=== PATIENT | female | born 1930 | race Two or more races ===

== ENCOUNTER 2017-10-15 09:57 | Inpatient (IN) | payer MEDICARE, MEDICAID ==
[~2017-10-15] VITALS: Ht 152.4 cm; Wt 83.0 kg
[~2017-10-15 09:57] MED LIST: ERGOCALCIFEROL (VITAMIN D 2) 50,000 UNIT CAPSULE PO SCH
--- NOTE | 2017-10-15 10:00 | NUR ---
87 yo female bb ra from home. per ems, dialysis transport came to roller picker patient, noticed patient was slow to respond, called 911 for eval. patient is alert and oriented x 2, can not recall date. patient was ds to er bed by ems, patient was gowned, placed on monitor car operator. skin warm and dry, resp even and unlabored. per family, patient is usually energetic, but today doesnt seem to have energy. awaiting orders from provider, will continue to monitor
--- NOTE | 2017-10-15 10:05 | NUR ---
20g right ac iv started, blood sample onbtained and sent to lab
--- NOTE | 2017-10-15 10:30 | NUR ---
asked for bed
[2017-10-15 10:31] LABS: INR 1.12 (0.85-1.15)
[2017-10-15 10:33] LABS: BASOPHILS % (AUTO) 0.3 % (0.0-2.0); EOSINOPHILS % (AUTO) 0.1 % (0.0-6.0); HEMATOCRIT 29 % (33-45); HEMOGLOBIN 9.7 g/dL (11.5-14.8); LYMPHOCYTES # (AUTO) 0.5 /CMM (0.8-4.8); LYMPHOCYTES % (AUTO) 6.5 % (20.0-44.0); MEAN CORPUSCULAR HGB CONC 33 g/dl (31.0-36.0); MEAN CORPUSCULAR VOLUME 97 fL (82-100); MONOCYTES # (AUTO) 0.4 /CMM (0.1-1.30); MONOCYTES % (AUTO) 5.6 % (2.0-12.0); NEUTROPHILS # (AUTO) 6.3 /CMM (1.8-8.9); NEUTROPHILS % (AUTO) 87.5 % (43.0-81.0); PLATELET COUNT (AUTO) 278 /CMM (150-450); RDW COEFFICIENT OF VARIATION 14.2 (11.5-15.0); RED BLOOD CELL COUNT(AUTO) 3.01 MIL/uL (4.0-5.2); WHITE BLOOD COUNT (AUTO) 7.2 K/uL (4.3-11.0)
[2017-10-15 10:36] LABS: TROPONIN I 0.027 ng/mL (0.00-0.056)
[2017-10-15] MEDS ORDERED: ERGO500014 PO (10:41)
[2017-10-15] MEDS ORDERED: ROSU10TA PO (10:41)
[2017-10-15] MEDS ORDERED: FOLI1TAB16 PO (10:41)
[2017-10-15] MEDS ORDERED: ASCO500T9 PO (10:41)
[2017-10-15] MEDS ORDERED: REPA2TAB9 PO (10:41)
[2017-10-15] MEDS ORDERED: LINA5TAB PO (10:41)
[2017-10-15] MEDS ORDERED: APIX2.5T PO (10:41)
[2017-10-15] MEDS ORDERED: PANT20TA2 PO (10:41)
[2017-10-15 10:44] LABS: CALCIUM, SERUM 8.5 mg/dL (8.5-10.1); CARBON DIOXIDE 29 mmol/L (21-32); CHLORIDE 97 mmol/L (98-107); CREATININE 6.4 mg/dL (0.6-1.3); GLUCOSE 214 mg/dL (74-106); POTASSIUM 3.8 mmol/L (3.5-5.1); SODIUM SERUM 135 mmol/L (136-145); UREA NITROGEN, BLOOD 36 mg/dL (7-18)
[2017-10-15 10:49] LABS: ALANINE AMINOTRANSFERASE 13 U/L (12-78); ALBUMIN 2.8 g/dL (3.4-5.0); ALKALINE PHOSPHATASE 97 U/L (46-116); ASPARTATE AMINOTRANSFERASE 21 U/L (15-37); BILIRUBIN,DIRECT 0.2 mg/dL (0.0-0.2); BILIRUBIN,TOTAL 0.4 mg/dL (0.2-1.0); TOTAL PROTEIN, SERUM 7.9 g/dL (6.4-8.2)
--- NOTE | 2017-10-15 11:37 | NUR ---
lazaro rn took report for guanako
--- NOTE | 2017-10-15 11:50 | NUR ---
NUCLEAR PHYSICIST PATIENT RECEIVED FROM E.R. DEPARTMENT ALERT AND ORIENTED X2, GUYANESE SPEAKING, DAUGHTER AT BEDSIDE, PATIENT IS IN NO DISTRESS, DENIES PAIN OR DISCOMFORT AT THIS TIME, PATIENT IS BEING ADMITTED WITH DX OF SYNCOPE. PATIENT PLACED ON TELE MONITOR WHICH SHOWS A.FIB. NEEDS ATTENDED AND ANTICIPATED, CALL LIGHT WITHIN REACH, WILL CONTINUE TO MONITOR.
--- NOTE | 2017-10-15 11:52 | NUR ---
transported pt to tele bed without incident
[2017-10-15 12:00] VITALS: BP 92/48
[2017-10-15] MEDS ORDERED: HEPARIN SODIUM, PORCINE 5000 UNITS/1 ML VIAL SQ SCH (12:00)
[2017-10-15] MEDS ORDERED: MAG HYDROX/AL HYDROX/SIMETH 30 ML UDC PO PRN (12:00)
[2017-10-15] MEDS ORDERED: HYDROCODONE/APAP 5/325MG 1 EACH TABLET PO PRN (12:00)
[2017-10-15] MEDS ORDERED: ACETAMINOPHEN 650 MG/SUPP.RECT RC PRN (12:00)
[2017-10-15] MEDS ORDERED: ZOLPIDEM TARTRATE 5 MG TABLET PO PRN (12:00)
[2017-10-15] MEDS ORDERED: MAGNESIUM HYDROXIDE 30 ML UDC PO PRN (12:00)
[2017-10-15] MEDS ORDERED: ONDANSETRON HCL/PF 4 MG/2 ML VIAL IVP PRN (12:00)
[2017-10-15] MEDS: PANTOPRAZOLE 40 MG VIAL IV SCH (13:00)
[2017-10-15 16:12] VITALS: BP 113/77
[2017-10-15] MEDS ORDERED: DOCU100C36 PO (16:47)
[2017-10-15] MEDS ORDERED: BISA-79 PR (16:47)
[2017-10-15] MEDS ORDERED: APIXABAN 2.5 MG TABLET PO SCH (17:00)
[2017-10-15] MEDS ORDERED: DEXTROSE 50%-WATER 50 ML DISP.SYRIN IV PRN (17:00)
[2017-10-15] MEDS: BLOOD SUGAR DIAGNOSTIC 1 EACH STRIP VI SCH ×2 (18:02→21:35)
[2017-10-15] MEDS: INSULIN REGULAR, HUMAN 100 UNIT/ML 3 ML VIAL SQ PRN (18:06)
--- NOTE | 2017-10-15 18:27 | NUR ---
RN NOTES PATIENT SLEEPING BUT AROUSABLE, PATIENT IS UNSAFE TO EAT DUE TO BEING TOO SLEEPY. WILL HOLD INSULIN. WILL RE-OFFER FOOD IN 30 MINUTES. PATIENT IS IN NO S/SX OF DISTRESS. NEEDS ATTENDED AND MET, CALL LIGHT WITHIN REACH, WILL CONTINUE TO MONITOR.
--- NOTE | 2017-10-15 18:51 | NUR ---
RN NOTES PATIENT A/OX2, APPEARS TO BE SLEEPY BUT EASILY AROUSABLE, PATIENT DENIES PAIN OR DISCOMFORT, PIV ON RAC PATENT AND FLUSHES WELL, NEEDS ATTENDED AND MET, CALL LIGHT WITHIN REACH, SAFETY MEASURES IN PLACED, WILL ENDORSE TO FLOOR CASHIER FOR BURT.
--- NOTE | 2017-10-15 19:50 | NUR ---
FLIGHT INSPECTOR NOTE: PATIENT RESTING IN BED, NO ACUTE DISTRESS NOTED. BREATHING EVEN AND UNLABORED, NO SOB NOTED. IV TO RAC IN PLACE. HD SITE TO RIGHT CHEST WALL IN PLACE, NO BLEEDING NOTED. NO S/S OF HYPER/HYPOGLYCEMIA NOTED. BED LOCKED AND IN LOWEST POSITION, CALL LIGHT IN REACH. WILL CONTINUE TO MONITOR.
[2017-10-15 20:00] VITALS: BP 94/43
[2017-10-15] MEDS ORDERED: APIXABAN 2.5 MG TABLET PO ONE (20:00)
[2017-10-15] MEDS: ATORVASTATIN 10 MG TABLET PO SCH (21:35)
--- NOTE | 2017-10-15 21:45 | NUR ---
HAND HIDE STRETCHER NOTE: PATIENT BLOOD SUGAR LEVEL 114MG/DL, NO INSULIN NEEDED PER SLIDING SCALE. NO S/S OF HYPOGLYCEMIA NOTED. WILL CONTINUE TO MONITOR.
[2017-10-16] VITALS: BP 93/52
[2017-10-16] MEDS: GUAIFENESIN/D-METHORPHAN HB 5 ML UDC PO PRN ×3 (00:05→21:16)
--- NOTE | 2017-10-16 00:15 | NUR ---
PAIRER NOTE: PATIENT COUGHING WITH CLEAR THIN SPUTUM AND REQUESTING FOR COUGH MEDICATIONS. SPOKE TO SCHEDULING SPECIALIST DIVINA WHITNEY, AKANKSHA WITH NEW ORDERS FOR ROBITUSSIN DM 5ML ORAL EVERY 4HR NEEDED. ORDER NOTED AND CARRIED OUT. WILL CONTINUE TO MONITOR.
--- NOTE | 2017-10-16 01:00 | NUR ---
HAIR BALER NOTE: PATIENT STATES THAT SHE HAD OLD AV SITE TO RFA. NEW IV STARTED TO LEFT FOREARM #22, IV TO RAC REMOVED, COVERED WITH GAUZE, PRESSURE APPLIED, AND SECURED WITH TAPE. WILL CONTINUE TO MONITOR.
[2017-10-16 04:00] VITALS: BP 110/59
[2017-10-16 06:32] LABS: BASOPHILS % (AUTO) 0.6 % (0.0-2.0); EOSINOPHILS % (AUTO) 0.7 % (0.0-6.0); HEMATOCRIT 28 % (33-45); HEMOGLOBIN 9.2 g/dL (11.5-14.8); LYMPHOCYTES # (AUTO) 0.7 /CMM (0.8-4.8); LYMPHOCYTES % (AUTO) 9.9 % (20.0-44.0); MEAN CORPUSCULAR HGB CONC 33 g/dl (31.0-36.0); MEAN CORPUSCULAR VOLUME 99 fL (82-100); MONOCYTES # (AUTO) 0.6 /CMM (0.1-1.30); MONOCYTES % (AUTO) 8.3 % (2.0-12.0); NEUTROPHILS # (AUTO) 5.5 /CMM (1.8-8.9); NEUTROPHILS % (AUTO) 80.5 % (43.0-81.0); PLATELET COUNT (AUTO) 228 /CMM (150-450); RED BLOOD CELL COUNT(AUTO) 2.83 MIL/uL (4.0-5.2); WHITE BLOOD COUNT (AUTO) 6.9 K/uL (4.3-11.0)
--- NOTE | 2017-10-16 06:45 | NUR ---
ANTIQUE DEALER NOTE: PATIENT RESTING IN BED, NO ACUTE DISTRESS NOTED. BREATHING EVEN AND UNLABORED, NO SOB NOTED. IV TO LFA IN PLACE. HD SITE TO RIGHT CHEST WALL IN PLACE, NO BLEEDING NOTED. BLOOD SUGAR LEVEL 116MG/DL, NO S/S OF HYPER/HYPOGLYCEMIA NOTED. BED LOCKED AND IN LOWEST POSITION, CALL LIGHT IN REACH. WILL ENDORSE TO DAY NURSE TO CONTINUE WITH PLAN OF CARE.
[2017-10-16 06:47] LABS: ALANINE AMINOTRANSFERASE 15 U/L (12-78); ALBUMIN 2.6 g/dL (3.4-5.0); ALKALINE PHOSPHATASE 83 U/L (46-116); ASPARTATE AMINOTRANSFERASE 14 U/L (15-37); BILIRUBIN,TOTAL 0.4 mg/dL (0.2-1.0); CALCIUM, SERUM 8.2 mg/dL (8.5-10.1); CARBON DIOXIDE 29 mmol/L (21-32); CHLORIDE 98 mmol/L (98-107); GLUCOSE 114 mg/dL (74-106); MAGNESIUM 2.2 mg/dL (1.8-2.4); PHOSPHORUS 4.7 mg/dL (2.5-4.9); SODIUM SERUM 138 mmol/L (136-145); TOTAL PROTEIN, SERUM 7.5 g/dL (6.4-8.2); UREA NITROGEN, BLOOD 44 mg/dL (7-18)
[2017-10-16 06:51] LABS: CREATININE 7.5 mg/dL (0.6-1.3)
[2017-10-16 06:54] LABS: CHOLESTEROL 121 mg/dL (<200); HDL CHOLESTEROL 54 mg/dL (40-60); LDL 53 mg/dL (0-99); THYROID STIMULATING HORMONE 0.594 uIU/mL (0.358-3.74); TRIGLYCERIDES 93 mg/dL (30-150)
[2017-10-16] MEDS: BLOOD SUGAR DIAGNOSTIC 1 EACH STRIP VI SCH ×4 (06:57→21:05)
[2017-10-16 07:13] LABS: IRON, SERUM 39 ug/dl (50-175); TOTAL IRON BINDING CAPACITY 143 ug/dl (250-450)
--- NOTE | 2017-10-16 07:37 | NUR ---
TELE/RN OPENING NOTE PATIENT IN BED IN STABLE CONDITION. A/O X 3, TONGAN SPEAKING. NO SIGNS OF ACUTE DISTRESS. NO COMPLAIN OF PAIN OR DISCOMFORT. ON TELE MONITOR WITH CONTROLLED A-FIB RATE OF 98. ALL NEEDS ATTENDED TO. CALL LIGHT WITHIN REACH. WILL CONTINUE TO MONITOR TO ENSURE SAFETY.
[2017-10-16 08:00] VITALS: BP 100/52
[2017-10-16] MEDS: FOLIC ACID 1 MG TABLET PO SCH (08:35)
[2017-10-16] MEDS: PANTOPRAZOLE 40 MG VIAL IV SCH (08:35)
[2017-10-16] MEDS: ASCORBIC ACID 500 MG TABLET PO SCH (08:36)
[2017-10-16] MEDS: ERGOCALCIFEROL (VITAMIN D 2) 50,000 UNIT CAPSULE PO SCH (08:37)
[2017-10-16] MEDS ORDERED: Medication Not On Formulary EA (Rosuvastatin Calcium (Crestor) 10 MG) PO SCH (09:00)
--- NOTE | 2017-10-16 09:19 | NUR ---
MS/RN ELIQUIS DOSE 10/15/181699 HELD SPOKE WITH PHARMACIST ERAN AND MADE AWARE ELIQUIS DUE TODAY AT 9AM BUT UNABLE TO SCAN BECAUSE eMAR STILL SHOWS ELIQUIS ORDER FROM 10/15/16 170. PER ERAN PUT NON ADMIN FOR 10/15/161699 ELIQUIS AND ADMINISTERED TODAY'S 9AM ELIQUIS DOSE.
[2017-10-16] MEDS: ACETAMINOPHEN 325 MG TABLET PO PRN (10:56)
[2017-10-16] MEDS: APIXABAN 2.5 MG TABLET PO SCH ×2 (10:56→16:28)
[2017-10-16] MEDS: INSULIN REGULAR, HUMAN 100 UNIT/ML 3 ML VIAL SQ PRN (11:57)
--- NOTE | 2017-10-16 14:25 | NUR ---
MS/RN ORTHOSTATIC BP LYING 105/51, 95 SITTING 110/53, 97 STANDING 112/48, 110
--- NOTE | 2017-10-16 15:29 | NUR ---
MS/RN SPOKE WITH DR GUTHRIE SPOKE WITH JERRI AND MADE AWARE PATIENT VERBALIZING THAT SHE DIDN'T HAVE B.M. FOR PAST 5 DAYS AND REQUESTING FOR ENEMA. PER DR GUTHRIE GIVE MOM 30ML PO X 1 NOW AND BISACODYL 10MG PO X 1 NOW, IF NOT WORKING THEN GIVE FLEET ENEMA RC X 1. PATIENT MADE AWARE.
[2017-10-16] MEDS ORDERED: NA PHOS,M-B/NA PHOS,DI-BA 1 EA ENEMA RC PRN (15:30)
[2017-10-16 16:00] VITALS: BP 117/65
[2017-10-16] MEDS ORDERED: MAGNESIUM HYDROXIDE 30 ML UDC PO ONE (16:00)
[2017-10-16] MEDS ORDERED: BISACODYL (5 MG) 5 MG TABLET.DR PO ONE (16:00)
--- NOTE | 2017-10-16 18:24 | NUR ---
MS/RN CLOSING NOTE PATIENT IN BED IN STABLE CONDITION. A/O X 3, BANGLADESHI SPEAKING. NO SIGNS OF ACUTE DISTRESS. NO COMPLAIN OF PAIN OR DISCOMFORT. ALL NEEDS ATTENDED TO. CALL LIGHT WITHIN REACH. WILL ENDORSE TO NEXT SHIFT FOR CONTINUITY OF CARE.
--- NOTE | 2017-10-16 19:07 | NUR ---
RN NOTES RECEIVE PT IN BED A/O X3 , NO S/S OF DISTRESS, STABLE, SAFETY MEASURES IN PLACE, CALL LIGHT WITHIN REACH, WILL CONTINUE TO MONITOR
[2017-10-16 20:00] VITALS: BP 113/58
[2017-10-16] MEDS: ATORVASTATIN 10 MG TABLET PO SCH (21:08)
[2017-10-16] MEDS: *INSULIN REGULAR(HUMULIN R)HUM 100 UNIT/ML VIAL SQ PRN (21:08)
--- NOTE | 2017-10-16 22:00 | NUR ---
MS RN NOTES PATIENT REFUSED 3 UNITS OF REGULAR INSULIN BS 166 MG/DL NON ADMIN PER PT SHE DOESNT TAKE INSULIN PT A/O X 4 DESPITE EXPLAINING RISKS AND BENEFITS OFFERED 3 TIMES STILL REFUSED PT A/OX4. HOSPITALIST MADE AWARE.
[2017-10-17] MEDS: GUAIFENESIN/D-METHORPHAN HB 5 ML UDC PO PRN ×3 (02:22→21:11)
--- NOTE | 2017-10-17 02:44 | NUR ---
MS RN NOTES PATIENT NOTED NON PRODUCTIVE COUGH SPOKE TO SUPERVISOR LINE DEPARTMENT DIVINA PT NOTED WITH THIN SPUTUM CANNOT EXPECTORATE. PER DIVINA VALE SHE WILL PUT ORDERS. WILL MTR. SPO2 97%
[2017-10-17] MEDS ORDERED: GUAIFENESIN LA 600 MG TABLET.SA PO PRN (03:00)
[2017-10-17] MEDS ORDERED: ACETYLCYSTEINE 10% SOLN 400 MG/4 ML VIAL NEB PRN (03:00)
[2017-10-17] MEDS: INSULIN REGULAR, HUMAN 100 UNIT/ML 3 ML VIAL SQ PRN ×2 (06:00→12:34)
[2017-10-17] MEDS: BLOOD SUGAR DIAGNOSTIC 1 EACH STRIP VI SCH ×4 (06:00→21:16)
--- NOTE | 2017-10-17 06:47 | NUR ---
MS RN NOTES PT ASLEEP COMFORTABLY IN BED AND EASILY AWAKEN SEMI FOWLERS POSITION ON 2LPM VIA NC O2 SAT 95% NOT IN RESPIRATORY DISTRESS. STABLE CONDITION. NO ACUTE CHANGES THROUGHOUT THE SHIFT. KEPT CLEAN AND DRY AND COMFORTABLE. NURSING CARE RENDERED. NEEDS ATTENDED AND ANTICIPATED. NO C/O OF PAIN. GOOD SKIN CARE PROVIDED. REPOSITION EVERY 2 HOURS FOR COMFORT. ON LOW BED TO ENSURE SAFETY, CALL LIGHT WITHIN REACH, WILL ENDORSE TO THE NEXT SHIFT CONTINUE PLAN OF CARE
--- NOTE | 2017-10-17 06:49 | NUR ---
MS RN NOTES PATIENT REFUSED 3 UNITS OF REGULAR INSULIN BS 175 MG/DL NON ADMIN PER PT SHE DOESNT TAKE INSULIN PT A/O X 4 DESPITE EXPLAINING RISKS AND BENEFITS OFFERED 3 TIMES STILL REFUSED. HOSPITALIST MADE AWARE.
--- NOTE | 2017-10-17 07:29 | NUR ---
MS/RN OPENING NOTE PATIENT IN BED IN STABLE CONDITION. A/O X 3, UGANDAN SPEAKING. NO SIGNS OF ACUTE DISTRESS. NO COMPLAIN OF PAIN OR DISCOMFORT. ALL NEEDS ATTENDED TO. CALL LIGHT WITHIN REACH. WILL CONTINUE TO MONITOR TO ENSURE SAFETY.
[2017-10-17] MEDS ORDERED: ACETYLCYSTEINE 20% SOLN 800 MG/4 ML VIAL ONE (07:36)
[2017-10-17 08:06] VITALS: BP 110/58
[2017-10-17 08:10] LABS: BASOPHILS % (AUTO) 0.2 % (0.0-2.0); HEMATOCRIT 29 % (33-45); HEMOGLOBIN 9.5 g/dL (11.5-14.8); LYMPHOCYTES # (AUTO) 0.5 /CMM (0.8-4.8); LYMPHOCYTES % (AUTO) 5.7 % (20.0-44.0); MEAN CORPUSCULAR HGB CONC 33 g/dl (31.0-36.0); MEAN CORPUSCULAR VOLUME 99 fL (82-100); MONOCYTES # (AUTO) 0.7 /CMM (0.1-1.30); MONOCYTES % (AUTO) 7.5 % (2.0-12.0); NEUTROPHILS # (AUTO) 7.6 /CMM (1.8-8.9); NEUTROPHILS % (AUTO) 86.6 % (43.0-81.0); PLATELET COUNT (AUTO) 239 /CMM (150-450); RDW COEFFICIENT OF VARIATION 15.6 (11.5-15.0); RED BLOOD CELL COUNT(AUTO) 2.94 MIL/uL (4.0-5.2); WHITE BLOOD COUNT (AUTO) 8.8 K/uL (4.3-11.0)
[2017-10-17] MEDS: ASCORBIC ACID 500 MG TABLET PO SCH (08:15)
[2017-10-17] MEDS: APIXABAN 2.5 MG TABLET PO SCH ×2 (08:15→16:50)
[2017-10-17] MEDS: FOLIC ACID 1 MG TABLET PO SCH (08:15)
[2017-10-17 08:33] LABS: CALCIUM, SERUM 7.9 mg/dL (8.5-10.1); CARBON DIOXIDE 32 mmol/L (21-32); CHLORIDE 98 mmol/L (98-107); CREATININE 5.8 mg/dL (0.6-1.3); GLUCOSE 147 mg/dL (74-106); MAGNESIUM 2.2 mg/dL (1.8-2.4); PHOSPHORUS 5.4 mg/dL (2.5-4.9); POTASSIUM 4.2 mmol/L (3.5-5.1); SODIUM SERUM 136 mmol/L (136-145); UREA NITROGEN, BLOOD 32 mg/dL (7-18)
--- NOTE | 2017-10-17 12:34 | NUR ---
MS/RN REGULAR INSULIN REFUSE NOON BS 164, REFUSE 3 UNITS. OFFERED X 3 WITH RISKS BENEFITS EXPLAINED STILL REFUSE.
--- NOTE | 2017-10-17 14:39 | NUR ---
MS/RN REPORT REPORT GIVEN TO CHRYSTAL LLANOS.
--- NOTE | 2017-10-17 14:50 | NUR ---
RN NOTES REPORT TAKEN FROM RN. PATIENT GETTING HEMODIALYSIS AT THIS TIME. PATIENT PASHTO SPEAKER, A/O X3. PATIENT HAS NO ACUTE RESPIRATORY DISTRESS ON O2-2LNC. V/S STABLE. CALL LIGHT WITHIN TO REACH. IV ACCESS ON LEFT FOREARM. CONTINUED MONITORING.
--- NOTE | 2017-10-17 15:45 | NUR ---
RN NOTES HEMODIALYSIS FINISHED AT THIS TIME GET REPORT HD NURSE BILL. OUTPUT WAS 2500 ML, V/S TAKEN AND BP- 107/57, P-92, PATIENT ON O2 2LNC. PATIENT COUGHING, ASSIST TURN AND REPOSTION Q 2 HR, CALL LIGHT WITHIN TO REACH. NEEDS ATTENDED AND ANTICIPATED. CONTINUED MONITORING. DAUGHTER NEXT TO THEE BED.
[2017-10-17 16:00] VITALS: BP 101/50
--- NOTE | 2017-10-17 16:50 | NUR ---
RN NOTES BS-128MG/DL NO COVERAGE GIVEN, V/S TAKEN BP -98/57, P-100, SCHEDULED MEDICATION ADMINISTERED, ALSO ADMINISTERED ROBITUSSIN SYRUP PER PATIENT REQUEST FOR COUGH, HOB KEEP ELEVATED, CALL LIGHT WITHIN TO REACH, CONTINUED MONITORING.
--- NOTE | 2017-10-17 18:40 | NUR ---
RN NOTES PATIENT STABLE AT THIS TIME, MEDICATION WERE ADMINISTERED FOR COUGH IS EFFECTIVE. NO ACUTE RESPIRATORY DISTRESS. PATIENT ON O2-2LNC, ASSIST TURN AND REPOSTION Q 2 HR. CALL LIGHT WITHIN TO REACH. SHANTELLE UED MONITORING. ENDORSED ONCOMING NURSE FOR BURT.
--- NOTE | 2017-10-17 19:30 | NUR ---
MS RN NOTES RECEIVED ON BED A/O X2-3,KYRGYZ SPEAKING.NOTED HAVING SOB,ON UPRIGHT POSITION,MULTIPLE BRUISING NOTED ON BOTH UPPER AND LOWER EXTREMITIES.SALINE LOCK LFA INTACT AND PATENT.WITH RIGHT CHEST WALL HD CATH,DRESSING INTACT AND DRY.WITH RA OLD AV SHUNT.APPEARS RESTLESS,TRYING TO GET OUT OF BED.REPOSITION PER PROTOCOL.CALL LIGHT IN REACH,NEEDS ANTICIPATED.
[2017-10-17 20:00] VITALS: BP 132/76
[2017-10-17] MEDS: ATORVASTATIN 10 MG TABLET PO SCH (21:10)
--- NOTE | 2017-10-17 21:10 | NUR ---
MS RN NOTES RESTLESS,GIVEN AMBIEN 5MG PO TO SLEEP.ONE TO ONE STARTED,PATIENT TRIED TO GET OUT OF BED,ALARM ON.
--- NOTE | 2017-10-17 21:11 | NUR ---
MS RN NOTES C/O COUGH,ROBITUSSIB DM 5ML PO GIVEN ORDERED FOR COUGH.
--- NOTE | 2017-10-17 21:19 | NUR ---
ASSESSED PT. PT SPO2 98% HR 82. PT CLAIMS NO SOB. RN NOTIFIED. WILL CONTINUE TO MONITOR.
[2017-10-17] MEDS: *INSULIN REGULAR(HUMULIN R)HUM 100 UNIT/ML VIAL SQ PRN (21:26)
--- NOTE | 2017-10-17 22:00 | NUR ---
MS RN NOTES ACCU-CHECK BLOOD SUGAR CHECK 146,COVERED WITH HUMULIN R 2 UNITS PER SLIDING SCALE.
--- NOTE | 2017-10-17 22:09 | NUR ---
MS RN NOTES SLEEPING AT THIS TIME,KEPT WARM AND COMFORTABLE.
[2017-10-18] VITALS (82 sets, daily range): BP systolic 69–148; BP diastolic 25–76
--- NOTE | 2017-10-18 01:30 | NUR ---
MS RN NOTES REPOSITION TO LEFT SIDE WITH HOB ELEVATED.
--- NOTE | 2017-10-18 02:15 | NUR ---
MS RN NOTES NOTED APPEARS LETHARGIC,BUT AROUSABLE TO VERBAL STIMULI,OPEN EYES.PATIENT WAS MEDICATED EARLIER WITH AMBIEN 5MG PO.PATIENT SO RESTLESS AND TRYING TO GET OUT OF BED.
--- NOTE | 2017-10-18 02:40 | NUR ---
MS RN NOTES DIVINA ZIGZAG STITCHER ON FLOOR AND SHE WAS ABLE TO SEE AND ASSESS PATIENT.WITH ORDER TO DO STAT ABG AND CHEST X-RAY NOTED AND CARRIED OUT.
--- NOTE | 2017-10-18 02:45 | NUR ---
MS RN NOTES BLOOD PRESSURE OF 141/64,HEART RATE-119,RR-22 O2 SAT 90% ON 10L/FACE MASK.
[2017-10-18 02:52] LABS: ABG BASE EXCESS -0.9 mmol/L; ABG PCO2 100.2 mmHg (35.0-45.0); ABG PH 7.104 (7.350-7.450); ABG PO2 73.6 mmHg (75.0-100.0); AaDO2 170.2 mmHg; COHb 0.6 % (0.5-1.5); MetHb 0.3 % (0.0-1.5); O2Hb 91.2 % (94.0-97.0); SITE, ABG Left Radial; VENT MODE, BG simple mask 10L 50%
[2017-10-18] MEDS ORDERED: FUROSEMIDE 100 MG/10 ML VIAL IV ONE (03:00)
[2017-10-18] MEDS ORDERED: NTG 50 MG/D5W250 ML BOTTL 250 ML IV PRN (03:00)
[2017-10-18] MEDS ORDERED: MORPHINE SULFATE INJ 2 MG/ML DISP.SYRIN IV PRN (03:00)
--- NOTE | 2017-10-18 03:05 | NUR ---
MS RN NOTES CHEST X-RAY WAS DONE THIS TIME
--- NOTE | 2017-10-18 03:10 | NUR ---
MS RN NOTES TRANSFERRED TO ICU FOR FURTHER CARE AND MANAGEMENT ORDERED BY AKANKSHA MURCIA
--- NOTE | 2017-10-18 03:15 | NUR ---
MS RN NOTES PLACE CALL TO RICHARD COELHO, DAUGHTER,LEAVE MESSAGE ON ANSWERING MACHINE
--- NOTE | 2017-10-18 03:25 | NUR ---
PLACED PT ON BIPAP ON MD NOTED SETTINGS. BIPAP PLUGGED INTO RED OUTLET. WILL CONT TO MONITOR PT FOR REST OF SHIFT.
[2017-10-18] MEDS ORDERED: NTG 50 MG/D5W250 ML BOTTL 250 ML IV ONE (03:29)
[2017-10-18] MEDS ORDERED: SUCCINYLCHOLINE CHLORIDE 20 MG/ML VIAL IV ONE (04:30)
[2017-10-18] MEDS ORDERED: ETOMIDATE 2 MG/ML VIAL IV ONE (04:30)
[2017-10-18] MEDS ORDERED: LORAZEPAM INJ 2 MG/ML VIAL IV ONE (04:30)
--- NOTE | 2017-10-18 04:30 | NUR ---
PT INTUBATED BY ER MD TODD WITH 7.5 ETT 22 @ LIP. 02SAT 100%, WILL TAKE PT FOR CT CHEST
--- NOTE | 2017-10-18 04:32 | NUR ---
CALLED TO BEDSIDE PT ON BIPAP. INTUBATED PT PER PHYSICIAN ORDERS. ET TUBE 7.5 22 @ LIP. BILATERAL BREATH SOUNDS, DIMINISHED ON THE LEFT. POSITIVE COLOR CHANGE AND MIST IN THE TUBE. VENT SETTINGS 20, 400, 100%, +5. X-RAY OBSERVED ETT IN GOOD POSITION. SX LARGE AMOUNT YELLOW SECRETIONS. AMBU BAG AT BEDSIDE. VENT PLUGGED INTO RED OUTLET. ALARMS ARE ON AND AUDIBLE.
[2017-10-18] MEDS ORDERED: PROPOFOL 100 ML ONE (04:39)
[2017-10-18 04:54] LABS: ABG BASE EXCESS -2.5 mmol/L; ABG OXYGEN SATURATION 95.6 % (92.0-98.5); ABG PCO2 71.5 mmHg (35.0-45.0); ABG PO2 85.7 mmHg (75.0-100.0); AaDO2 555.8 mmHg; COHb 0.3 % (0.5-1.5); MetHb 0.1 % (0.0-1.5); O2Hb 95.2 % (94.0-97.0); SITE, ABG Left Radial; VENT MODE, BG AC20 400 100% +5
[2017-10-18] MEDS ORDERED: PROPOFOL 100 ML IV PRN (05:00)
[2017-10-18] MEDS ORDERED: LORAZEPAM INJ 2 MG/ML VIAL IV PRN (05:00)
[2017-10-18 05:17] LABS: HEMATOCRIT 33 % (33-45); HEMOGLOBIN 10.2 g/dL (11.5-14.8); LYMPHOCYTES # (AUTO) 0.5 /CMM (0.8-4.8); LYMPHOCYTES % (AUTO) 5.7 % (20.0-44.0); MEAN CORPUSCULAR HGB CONC 31 g/dl (31.0-36.0); MEAN CORPUSCULAR VOLUME 102 fL (82-100); MONOCYTES # (AUTO) 0.6 /CMM (0.1-1.30); MONOCYTES % (AUTO) 6.1 % (2.0-12.0); NEUTROPHILS # (AUTO) 8.2 /CMM (1.8-8.9); NEUTROPHILS % (AUTO) 88.2 % (43.0-81.0); PLATELET COUNT (AUTO) 241 /CMM (150-450); RED BLOOD CELL COUNT(AUTO) 3.26 MIL/uL (4.0-5.2); WHITE BLOOD COUNT (AUTO) 9.3 K/uL (4.3-11.0)
--- NOTE | 2017-10-18 05:32 | NUR ---
RETURNED FROM CT CHEST, AKANKSHA MANZANARES AWARE OF RESULTS
[2017-10-18 05:51] LABS: CALCIUM, SERUM 8.6 mg/dL (8.5-10.1); CARBON DIOXIDE 26 mmol/L (21-32); CHLORIDE 101 mmol/L (98-107); CREATININE 4.7 mg/dL (0.6-1.3); GLUCOSE 120 mg/dL (74-106); MAGNESIUM 2.4 mg/dL (1.8-2.4); PHOSPHORUS 5.3 mg/dL (2.5-4.9); POTASSIUM 4.4 mmol/L (3.5-5.1); SODIUM SERUM 141 mmol/L (136-145); UREA NITROGEN, BLOOD 24 mg/dL (7-18)
--- NOTE | 2017-10-18 05:54 | NUR ---
OGT INSERTED PER DIRECTOR OF PHYSIOTHERAPY SERVICES LEIGHTON ORDER, @ 65 CM AT THE LIP
[2017-10-18 06:41] LABS: ABG BASE EXCESS -0.8 mmol/L; ABG OXYGEN SATURATION 98.3 % (92.0-98.5); ABG PH 7.227 (7.350-7.450); COHb 0.3 % (0.5-1.5); MetHb 0.3 % (0.0-1.5); O2Hb 97.7 % (94.0-97.0); SITE, ABG Left Brachial
[2017-10-18] MEDS: BLOOD SUGAR DIAGNOSTIC 1 EACH STRIP VI SCH ×2 (08:13→12:26)
[2017-10-18] MEDS: FOLIC ACID 1 MG TABLET PO SCH (08:24)
[2017-10-18] MEDS: ASCORBIC ACID 500 MG TABLET PO SCH (08:24)
[2017-10-18] MEDS: APIXABAN 2.5 MG TABLET PO SCH ×2 (08:29→17:00)
--- NOTE | 2017-10-18 09:13 | NUR ---
WOUND CARE CONSULT: PT PRESENTS WITH BRUISES TO EXTREMITIES AND EDEMA TO LOWER EXTREMITIES. PT NOTED TO HAVE INTACT DEEP TISSUE INJURY TO SACRUM. FIRST STEP MATTRESS BEING PLACED BY NURSING STAFF. PT IS NOW INTUBATED. ALL SKIN PROTECTION MEASURES IN PLACE AND DISCUSSED WITH NURSING STAFF. IN AGREEMENT WITH PLAN OF CARE. Addendum: 10/18/17 at 0915 by LORENA VÁSQUEZ WNDNU Amended: Links added.
[2017-10-18] MEDS: IPRATROPIUM NEB FS 0.5 MG/2.5 ML AMPUL.NEB NEB SCH ×3 (10:45→20:29)
[2017-10-18] MEDS: ACETYLCYSTEINE 10% SOLN 400 MG/4 ML VIAL NEB SCH ×3 (10:45→23:30)
[2017-10-18] MEDS ORDERED: VANCOMYCIN 1 GM in IV D5W 250 ML IV ONE (10:45)
[2017-10-18] MEDS ORDERED: FEE PK DOSING 1 MIN EA MC ONE (10:50)
[2017-10-18] MEDS: PIPERACILLIN /TAZOBACTAM 2.25 G in IV D5W 100 ML IV SCH ×2 (11:15→20:15)
--- NOTE | 2017-10-18 11:24 | NUR ---
FARM CONSULTANT NOTE 0720: Received sedated patient. With ETT to vent, tolerated settings at this time byut on AC 24 400 100%. Afib 70's on the monitor. OGT clamped. LFA AND RFA PIVs intact. BODY PRESSER restraints on for safety. Diprivan @ 5mcg, turned off and will monitor. 0820: S/E by wound care consult, noted with sacral DTI, applied Mepilex. Placed on KCI mattress. 0930: S/E by Dr. Nelson, with order to change settings to Vt 450 60% and will do ABG @ 1130. 0945: S/E by Dr. Brooks, Patient responds to pain but does not follow commands, kept off sedation. 1000: S/E by Silas ARCHEOLOGIST, HD onging, SBP 80's, obtained order for PICC insertion and Levo. Made CN and sup aware for order for PICC insertion. 1120: HD nurse stopped HD, patient did not tolerate HD well, SBP 70's even after 2 rounds of Albumin IV. Able to get 1500mL out per HD nurse. Started Vanco ATB.
[2017-10-18] MEDS: ALBUMIN 25% 25 GM in PREMIX 1 EA IV PRN (11:40)
[2017-10-18] MEDS: NOREPINEPHRINE 16 MG in IV D5W 500 ML IV PRN (11:48)
--- NOTE | 2017-10-18 11:52 | NUR ---
RAIL CAR REPAIR CARMAN NOTE Levo will start on PIV for now for low dose., followed up re: PICC line. Daughter said she will come to sign it and does not want to giove consent via phone.
[2017-10-18] MEDS ORDERED: DEXTROSE 50%-WATER 50 ML DISP.SYRIN IV PRN (12:30)
[2017-10-18 12:41] LABS: ABG BASE EXCESS 2.3 mmol/L; ABG OXYGEN SATURATION 96.7 % (92.0-98.5); ABG PCO2 36.1 mmHg (35.0-45.0); ABG PH 7.473 (7.350-7.450); ABG PO2 83.4 mmHg (75.0-100.0); AaDO2 304.7 mmHg; COHb 0.2 % (0.5-1.5); MetHb 0.3 % (0.0-1.5); O2Hb 96.2 % (94.0-97.0); SITE, ABG Right Radial; VT, ABG 450 mL
--- NOTE | 2017-10-18 15:33 | NUR ---
DESIGN DIRECTOR NOTE 1400: S/E by Dr. Bell, HD nurse in the unit made MD aware, only got 1500mL from HD and not fully done with the treatment. 1430: Dr. Dawson in the unit for LIJ TLC insertion, Ani daughter consented for Central line. 1500: Done with EEG.
--- NOTE | 2017-10-18 17:27 | NUR ---
RT END OF THE SHIFT REPORT, PT. 87 Y OLD FEMALE REMAIN ORALLY INTUBATED ETT# 7.5 @ 22 CM LIP LINE ON VENT WITH NOTED SETTINGS. ALARMS ARE SET AND AUDIBLE WITH AMBU BAG AT THE BEDSIDE. COMMUNITY SPORTS COORDINATOR CUFF PRESSURE CHECKED. VENT IS PLUGGED INTO RED OUTLET. B/S BILATERALLY RHONCHI SX MODERATE THICK YELLOW SECRETIONS. NO RESPIRATORY DISTRESS NOTED T/O SHIFT, TX'S GIVEN INLINE NO ADVERSE REACTION NOTED. HME CHANGED. PT. REMAIN STABLE. REPORT WILL PASS TO PM SHIFT. Addendum: 10/18/17 at 1729 by GAUTAM RAI RT Amended: Links added.
[2017-10-18] MEDS: BLOOD SUGAR DIAGNOSTIC 1 EACH STRIP IN SCH ×2 (17:31→23:39)
--- NOTE | 2017-10-18 18:24 | NUR ---
INDUSTRIAL TRAINER NOTE Noted patient with blood on pad when changed, reported to Silas HOLLOW HANDLE KNIFE ASSEMBLER, with order to Pace Ruggiero, held Eliquis. Noted with dark blood in the Ruggiero tube when inserted Ruggiero. Flushed with 100mL NS and hematuria resolved. Will continue to monitor.
--- NOTE | 2017-10-18 19:45 | NUR ---
ICU/RN RECEIVED PT ON VENT VIA ORAL ETT,SAT 100% ON 60% FI02.ON LEVOPHED DRIP AT 4MCG/MIN,SBP OF 101 MMHG.WILL OBSERVE CLOSELY.
[2017-10-18] MEDS: ATORVASTATIN 10 MG TABLET PO SCH (21:24)
--- NOTE | 2017-10-18 22:08 | NUR ---
pt received on vent via charted settings and route. ambu bag at bedside alarms set and audible. disconnect alarms checked. vent plugged into red outlet. tolerating vent at this time Addendum: 10/18/17 at 2210 by POONAM HEWITT RT Amended: Links added.
[2017-10-18] MEDS: INSULIN REGULAR, HUMAN 100 UNIT/ML 3 ML VIAL SQ PRN (23:40)
[2017-10-18] MEDS: ACETAMINOPHEN 325 MG TABLET PO PRN (23:55)
[2017-10-19] VITALS (98 sets, daily range): BP systolic 68–157; BP diastolic 26–89
--- NOTE | 2017-10-19 | NUR ---
ICU/RN PT.FEBRILE W/ TEMP OF 102.9.DR MANZANARES NOTIFIED.ORDERS RECEIVED AND CARRIED OUT.UNABLE TO COLLECT URINE FOR URINALYSIS PT ANURIC.BLOOD CULTURES DONE.
--- NOTE | 2017-10-19 00:10 | NUR ---
ICU/RN PLACED ON COOLING BLANKET FOR TEMP 102.9,AFTER TYLENOL 650MG GIVEN VIA OGT.
[2017-10-19] MEDS ORDERED: MORPHINE SULFATE INJ 4 MG/ML DISP.SYRIN ONE (01:34)
[2017-10-19] MEDS: IPRATROPIUM NEB FS 0.5 MG/2.5 ML AMPUL.NEB NEB SCH ×4 (01:39→19:51)
[2017-10-19] MEDS: MORPHINE SULFATE INJ 4 MG/ML DISP.SYRIN IV PRN (01:42)
--- NOTE | 2017-10-19 01:42 | NUR ---
ICU/RN PT EXTREMELY AGITATED,TUGGING AT RESTRAINTS,AND ATTEMPTED TO PULL REDDY,PT RE-ORIENTED TO TIME,PLACE AND SURROUNDINGS.MEDICATED WITH MORPHINE 2MG IV FOR ABOVE.WILL MONITOR.
[2017-10-19] MEDS: PIPERACILLIN /TAZOBACTAM 2.25 G in IV D5W 100 ML IV SCH ×3 (03:41→19:34)
--- NOTE | 2017-10-19 04:00 | NUR ---
ICU/RN REMAINS ON LEVOPHED DRIP.TEMP=98.8 DEGREES,HYPOTHERMIA MACHINE DC'D.SUCTIONED FOR SCANT TANNISH SECRETIONS.ORAL CARE DONE.BED BATH DONE.
[2017-10-19] MEDS: INSULIN REGULAR, HUMAN 100 UNIT/ML 3 ML VIAL SQ PRN (05:24)
[2017-10-19] MEDS: BLOOD SUGAR DIAGNOSTIC 1 EACH STRIP IN SCH ×4 (05:24→23:50)
[2017-10-19 05:33] LABS: APPEARANCE,URINE CLOUDY (CLEAR); BILIRUBIN,URINE 2+ (NEGATIVE); BLOOD, URINE 3+ Ery/uL (NEGATIVE); COLOR,URINE AMBER (YELLOW); KETONES,URINE 1+ (NEGATIVE); LEUKOCYTE ESTERASE ,URINE 3+ (NEGATIVE); NITRITE, URINE POSITIVE (NEGATIVE); PROTEIN,URINE 3+ mg/dl (NEGATIVE); UGLUCOSE NEGATIVE (NEGATIVE)
[2017-10-19 05:56] LABS: BACTERIA,URINE Moderate /HPF (None Seen); RBC,URINE 81-100 /HPF (0-2); SQUAMOUS EPITHELIAL CELL,UR Few /HPF (None Seen); WBC,URINE 81-100 /HPF (0-3)
[2017-10-19] MEDS ORDERED: VANCOMYCIN 500 MG in IV D5W 100 ML IV PRN (07:00)
[2017-10-19] MEDS: ACETYLCYSTEINE 10% SOLN 400 MG/4 ML VIAL NEB SCH ×2 (07:35→15:28)
--- NOTE | 2017-10-19 07:50 | NUR ---
RT PT RECEIVED ORALLY INTUBATED WITH A 7.5 ETT SECURED AT 22CM AT THE LIP LINE. PT RESPONDS TO STIMULI WHEN SX. PT IS ON THE VENT WITH NOTED SETTINGS. VENT ALARMS ARE SET AND AUDIBLE WITH BVM BY BEDSIDE. VENT IS PLUGGED INTO RED OUTLET. NO RESPIRATORY DISTRESS NOTED AT THIS TIME, WILL CONTINUE TO MONITOR. Addendum: 10/19/17 at 1843 by FATUMA LIRIANO RT Amended: Links added.
[2017-10-19 08:10] LABS: BASOPHILS % (AUTO) 0.1 % (0.0-2.0); EOSINOPHILS % (AUTO) 0.1 % (0.0-6.0); HEMATOCRIT 28 % (33-45); HEMOGLOBIN 9.1 g/dL (11.5-14.8); LYMPHOCYTES # (AUTO) 0.7 /CMM (0.8-4.8); LYMPHOCYTES % (AUTO) 7.1 % (20.0-44.0); MEAN CORPUSCULAR HGB CONC 32 g/dl (31.0-36.0); MEAN CORPUSCULAR VOLUME 98 fL (82-100); MONOCYTES # (AUTO) 0.7 /CMM (0.1-1.30); MONOCYTES % (AUTO) 6.8 % (2.0-12.0); NEUTROPHILS # (AUTO) 8.6 /CMM (1.8-8.9); NEUTROPHILS % (AUTO) 85.9 % (43.0-81.0); PLATELET COUNT (AUTO) 230 /CMM (150-450); RDW COEFFICIENT OF VARIATION 15.5 (11.5-15.0); RED BLOOD CELL COUNT(AUTO) 2.88 MIL/uL (4.0-5.2)
[2017-10-19 08:16] LABS: CALCIUM, SERUM 8.7 mg/dL (8.5-10.1); CARBON DIOXIDE 21 mmol/L (21-32); CHLORIDE 98 mmol/L (98-107); GLUCOSE 131 mg/dL (74-106); POTASSIUM 3.1 mmol/L (3.5-5.1); SODIUM SERUM 139 mmol/L (136-145); UREA NITROGEN, BLOOD 29 mg/dL (7-18)
[2017-10-19] MEDS: APIXABAN 2.5 MG TABLET PO SCH ×2 (08:24→17:00)
[2017-10-19] MEDS: FOLIC ACID 1 MG TABLET PO SCH (08:24)
[2017-10-19] MEDS: ASCORBIC ACID 500 MG TABLET PO SCH (08:24)
[2017-10-19] MEDS: ALBUMIN 25% 25 GM in PREMIX 1 EA IV PRN (09:42)
--- NOTE | 2017-10-19 11:51 | NUR ---
RESERVOIR ENGINEER NOTE 0720: Received patient lethargic. With ETT to vent, tolerated settings well. No respiratory distress noted at this time. With LIJ TLC intact, on Levo @ 10mcg, will titrate as ordered. Afib 70's with PVC's and V pacing. BUE and BLE edema 3+. RCW HD cath intact. Ruggiero cath intact, noted with very minimal urine with small amount of blood. Will hold Eliquis for now. 0845: S/E by Dr. Brooks, patient more awake now, follows commands. No any new order at this time. 0930: HD nurse at bedside to start HD. S/E by Dr. Nelson, patient responds to name and able to follow commands. said he will be back to see patient later if able to start on weaning. 1020: S/E by John VALE, with order of labs in am, CORPORATE INTERN aware for K 3.1 and patient on HD for SCUF, CORPORATE INTERN said to follow up with nephro, awaiting. 1150: HD ongoing, patient still tolerating well. Kept clean, warm and dry. Needs attended.
[2017-10-19 14:04] LABS: ABG BASE EXCESS -1.4 mmol/L; ABG OXYGEN SATURATION 95.7 % (92.0-98.5); ABG PCO2 35.9 mmHg (35.0-45.0); ABG PH 7.419 (7.350-7.450); ABG PO2 83.1 mmHg (75.0-100.0); AaDO2 160.8 mmHg; COHb 0.3 % (0.5-1.5); MetHb 0.1 % (0.0-1.5); O2Hb 95.3 % (94.0-97.0); PEEP,BG 0 cm H2O; SITE, ABG Left Radial; VT, ABG 450 mL
--- NOTE | 2017-10-19 14:13 | NUR ---
INSTRUMENT ROOM TECHNICIAN NOTE 1300: S/E by Dr. arnold with order to geive 20 mEq KCl. 1400: ABG resulted, Dr. Nelson with order for weaning trial tomorrow, daughter at bedside made aware for the POC.
[2017-10-19] MEDS: POTASSIUM CL. PREMIX PERIPHER. 50 ML IV SCH ×2 (15:26→17:22)
[2017-10-19] MEDS: NOREPINEPHRINE 16 MG in IV D5W 500 ML IV PRN (15:54)
--- NOTE | 2017-10-19 19:10 | NUR ---
ICU/RN RECEIVED PT ON VENT VIA ORAL ETT AWAKE,ALERT.X2.ON LEVOPHED DRIP TO MAINTAIN MAP >65.MONITOR SHOWS AFIB.W/ ISOLATED PACER BEATS.
[2017-10-19] MEDS: ACETAMINOPHEN 325 MG TABLET PO PRN (20:04)
--- NOTE | 2017-10-19 22:22 | NUR ---
pt received on vent via charted settings and route. ambu bag at bedside alarms set and audible. disconnect alarms checked. vent plugged into red outlet. tolerating vent at this time Addendum: 10/19/17 at 2223 by POONAM HEWITT RT Amended: Links added.
[2017-10-19] MEDS: ATORVASTATIN 10 MG TABLET PO SCH (22:26)
[2017-10-20] VITALS (108 sets, daily range): BP systolic 73–151; BP diastolic 35–96
--- NOTE | 2017-10-20 | NUR ---
ICU/RN SUCTIONED FOR SCAT AMT THICK TANNISH SECRETIONS,ORAL CARE DONE Addendum: 10/20/17 at 0554 by TOREY WU RN misspelled scant
[2017-10-20] MEDS: ACETYLCYSTEINE 10% SOLN 400 MG/4 ML VIAL NEB SCH ×4 (00:15→23:21)
[2017-10-20] MEDS: IPRATROPIUM NEB FS 0.5 MG/2.5 ML AMPUL.NEB NEB SCH ×4 (02:26→20:02)
[2017-10-20] MEDS: PIPERACILLIN /TAZOBACTAM 2.25 G in IV D5W 100 ML IV SCH ×3 (02:56→19:26)
--- NOTE | 2017-10-20 05:54 | NUR ---
ICU/RN REMAINS ON LEVOPHED DRIP,CURRENTLY AT 8MCG/MIN W/ SBP 95MMHG.
[2017-10-20] MEDS: BLOOD SUGAR DIAGNOSTIC 1 EACH STRIP IN SCH ×4 (06:03→23:45)
--- NOTE | 2017-10-20 07:00 | NUR ---
ICU/RN REPORT AND CARE OF PT. GIVEN TO PAZ LLANOS.LEVOPHED AT 6MCG/MIN.REMAINS ANURIC
--- NOTE | 2017-10-20 07:34 | NUR ---
RT PT RECEIVED ORALLY INTUBATED WITH A 7.5 ETT SECURED AT 22CM AT THE LIP LINE. PT IS AWAKE AND RESPONSIVE. PT IS ON THE VENT WITH NOTED SETTINGS. VENT ALARMS ARE SET AND AUDIBLE WITH BVM BY BEDSIDE. VENT IS PLUGGED INTO RED OUTLET. NO RESPIRATORY DISTRESS NOTED AT THIS TIME, WILL CONTINUE TO MONITOR. Addendum: 10/20/17 at 1756 by FATUMA LIRIANO RT Amended: Links added.
[2017-10-20] MEDS: APIXABAN 2.5 MG TABLET PO SCH ×2 (08:24→16:03)
[2017-10-20] MEDS: ASCORBIC ACID 500 MG TABLET PO SCH (08:53)
[2017-10-20] MEDS: NOREPINEPHRINE 16 MG in IV D5W 500 ML IV PRN (08:54)
[2017-10-20] MEDS: FOLIC ACID 1 MG TABLET PO SCH (08:54)
[2017-10-20 09:01] LABS: BASOPHILS # (AUTO) 0.1 /CMM (0.0-0.2); BASOPHILS % (AUTO) 0.5 % (0.0-2.0); EOSINOPHILS % (AUTO) 0.9 % (0.0-6.0); HEMATOCRIT 28 % (33-45); HEMOGLOBIN 9.1 g/dL (11.5-14.8); LYMPHOCYTES # (AUTO) 0.4 /CMM (0.8-4.8); LYMPHOCYTES % (AUTO) 3.7 % (20.0-44.0); MEAN CORPUSCULAR HGB CONC 33 g/dl (31.0-36.0); MEAN CORPUSCULAR VOLUME 97 fL (82-100); MONOCYTES # (AUTO) 0.8 /CMM (0.1-1.30); MONOCYTES % (AUTO) 6.5 % (2.0-12.0); NEUTROPHILS # (AUTO) 10.2 /CMM (1.8-8.9); NEUTROPHILS % (AUTO) 88.4 % (43.0-81.0); PLATELET COUNT (AUTO) 219 /CMM (150-450); RDW COEFFICIENT OF VARIATION 14.7 (11.5-15.0); RED BLOOD CELL COUNT(AUTO) 2.84 MIL/uL (4.0-5.2); WHITE BLOOD COUNT (AUTO) 11.6 K/uL (4.3-11.0)
[2017-10-20 09:36] LABS: CALCIUM, SERUM 8.8 mg/dL (8.5-10.1); CARBON DIOXIDE 29 mmol/L (21-32); CHLORIDE 98 mmol/L (98-107); CREATININE 6.1 mg/dL (0.6-1.3); GLUCOSE 159 mg/dL (74-106); MAGNESIUM 2.2 mg/dL (1.8-2.4); PHOSPHORUS 2.5 mg/dL (2.5-4.9); POTASSIUM 3.6 mmol/L (3.5-5.1); SODIUM SERUM 138 mmol/L (136-145); UREA NITROGEN, BLOOD 44 mg/dL (7-18)
[2017-10-20] MEDS: MORPHINE SULFATE INJ 4 MG/ML DISP.SYRIN IV PRN (10:20)
[2017-10-20] MEDS: ALBUMIN 25% 25 GM in PREMIX 1 EA IV PRN (10:20)
--- NOTE | 2017-10-20 10:31 | NUR ---
INSPECTOR PUBLICATIONS NOTE 0720: Received patient awake, alert to self, follows commands. With ETT to vent, tolerated settings well. With OGT noted with long length, removed and placed new NGT to right nares, noted with gurgling sound on the gastric region. With LIJ TLC intact. On Levo @ 6mcg, will titrate as ordered. Ruggiero cath intact, noted with minimal bleeding, anuric. RCW HD cath intact. 0930: S/E by Dr. Nelson, per RT, patient still with large amount of thick yellow secretions. 1000: S/E by Dr. Bell, with order of labs in am and HD SCUF tomorrow. 1020: HD nurse reported patient ST up to 150's. Patient seems uncomfortable, and nodded when asked if with pain. Morphine given as ordered and HD nurse given Albumin then stopped Dr. Ray WHITNEY aware for patient did not tolerate HD today.
[2017-10-20 12:38] LABS: ABG BASE EXCESS -1.1 mmol/L; ABG OXYGEN SATURATION 96.1 % (92.0-98.5); ABG PCO2 46.7 mmHg (35.0-45.0); ABG PH 7.342 (7.350-7.450); ABG PO2 94.9 mmHg (75.0-100.0); AaDO2 136.6 mmHg; COHb 0.3 % (0.5-1.5); MetHb 0.3 % (0.0-1.5); O2Hb 95.5 % (94.0-97.0); PEEP,BG 5 cm H2O; SITE, ABG Right Radial; VENT MODE, BG SIMV 4 / PS 12; VT, ABG 450 mL
[2017-10-20] MEDS ORDERED: VANCOMYCIN 1 GM in IV NS 0.9% 250 ML IV ONE (17:00)
--- NOTE | 2017-10-20 17:18 | NUR ---
RT PT REMAINS ORALLY INTUBATED ON THE VENT. PT REMAINS ON CPAP TOLERATING WELL. NO SIGNS OF RESPIRATORY DISTRESS NOTED AT THIS TIME. Addendum: 10/20/17 at 1756 by FATUMA LIRIANO RT Amended: Links added.
[2017-10-20] MEDS ORDERED: IV NS 0.9% 250 ML IV PRN (17:30)
--- NOTE | 2017-10-20 18:43 | NUR ---
DIRECTOR OF MIDWIFERY/STAFF MIDWIFE NOTE No any significant changes, Afib 80's. Patient remained comfortable. A/Ox3. No respiratory distress. On SIMV tolerated well. NUCLEAR LICENSING ENGINEER restraints on. Ruggiero cath intact, anuric. BS 133, hel insulin for just started on GT feeding. On Levo @ 5mcg, SBP remained >90.Kept clean ,warm and dry. Needs attended. Kept call light at reach.
--- NOTE | 2017-10-20 19:30 | NUR ---
STORE CLERK CASHIER INITIAL NOTES RECEIVED REPORT FROM DAY SHIFT NURSE PAZ. RECEIVED PATIENT IN BED, ASLEEP AT THIS TIME, EASILY WOKEN UP TO NAME. PATIENT IS MOSTLY JAPANESE SPEAKING, BUT UNDERSTANDS BASIC BAHAMIAN, FOLLOWS COMMANDS, ALERT AND ORIENTED X3. PATIENT IS ORALLY INTUBATED 7.5, 22CM @ LIP, ON CURRENT VENT SETTINGS PRESCRIBED, TOLERATING WELL AT THIS TIME, FREE FROM ANY S/S OF RESPIRATORY DISTRESS. ON TELEMETRY MONITORING, REVEALING AFIB, HR IN THE 80s AT THIS TIME, WITH OCCASIONAL V PACING. NOTED WITH R NARE NGT, PATENT AND INTACT, FLUSHED, ONGOING TUBE FEEDINGS, TOLERATING WELL, 5ML OF STRAW COLORED GASTRIC RESIDUALS NOTED AT THIS TIME. LEFT IJ TLC DRESSING CLEAN AND DRY, ALL PORTS FLUSHED WITH NS, SITE FREE FROM ANY S/S OF INFILTRATION OR PHLEBITIS, LEVOPHED CURRENTLY @ 5MCG/MIN. REDDY CATHETER IN PLACE, WITH MINIMAL URINE OUTPUT, PABLITO IN COLOR. HOB KEPT ELEVATED FOR ASPIRATION PRECAUTIONS, BED IN LOWEST AND LOCKED POSITION. CALL LIGHT WITHIN EASY REACH. WILL CONTINUE TO CLOSELY MONITOR THE PATIENT Addendum: 10/20/17 at 2035 by QUAN STAHL RN BILATERAL SOFT WRIST RESTRAINTS IN PLACE, TEMPORARILY REMOVED TO ASSESS FOR CIRCULATION, REAPPLIED
--- NOTE | 2017-10-20 20:41 | NUR ---
RECEIVED PT INTUBATED ON SIMV MODE. PT TOLERATING VENT SETTINGS. NO RESP DISTRESS NOTED. ETT SIZE 7.5 SECURED AT 23CM AT THE LIP. SX'D FOR SML AMT OF THICK PALE SECRETIONS. VENT ALARMS SET AND AUDIBLE. VENT PLUGGED INTO RED OUTLET. WILL CONTINUE TO MONITOR. Addendum: 10/20/17 at 2042 by ARI ALLISON RT Amended: Links added.
[2017-10-20] MEDS: ATORVASTATIN 10 MG TABLET PO SCH (21:20)
[2017-10-20] MEDS: INSULIN REGULAR, HUMAN 100 UNIT/ML 3 ML VIAL SQ PRN (23:48)
[2017-10-21] VITALS (110 sets, daily range): BP systolic 79–136; BP diastolic 41–99
[2017-10-21] MEDS: MORPHINE SULFATE INJ 4 MG/ML DISP.SYRIN IV PRN (00:28)
--- NOTE | 2017-10-21 00:28 | NUR ---
EMPLOYMENT COUNSELOR NOTES PATIENT APPEARS RESTLESS, NOTED WITH TACHYCARDIA AND TACHYPNEA. UPON ASSESSMENT, PATIENT NODS YES TO HAVING PAIN. WILL ADMINISTER PAIN MEDICATION ORDERED AND CONTINUE TO CLOSELY MONITOR
[2017-10-21] MEDS: IPRATROPIUM NEB FS 0.5 MG/2.5 ML AMPUL.NEB NEB SCH ×4 (01:25→20:04)
[2017-10-21] MEDS: PIPERACILLIN /TAZOBACTAM 2.25 G in IV D5W 100 ML IV SCH ×3 (02:37→18:46)
[2017-10-21] MEDS: BLOOD SUGAR DIAGNOSTIC 1 EACH STRIP IN SCH ×4 (05:38→23:59)
[2017-10-21] MEDS: INSULIN REGULAR, HUMAN 100 UNIT/ML 3 ML VIAL SQ PRN ×3 (05:40→19:18)
[2017-10-21 05:52] LABS: BASOPHILS % (AUTO) 0.3 % (0.0-2.0); EOSINOPHILS % (AUTO) 2.6 % (0.0-6.0); HEMATOCRIT 28 % (33-45); HEMOGLOBIN 9.2 g/dL (11.5-14.8); LYMPHOCYTES # (AUTO) 0.6 /CMM (0.8-4.8); LYMPHOCYTES % (AUTO) 4.9 % (20.0-44.0); MEAN CORPUSCULAR HGB CONC 33 g/dl (31.0-36.0); MEAN CORPUSCULAR VOLUME 97 fL (82-100); MONOCYTES % (AUTO) 8.4 % (2.0-12.0); NEUTROPHILS # (AUTO) 9.5 /CMM (1.8-8.9); NEUTROPHILS % (AUTO) 83.8 % (43.0-81.0); PLATELET COUNT (AUTO) 223 /CMM (150-450); RDW COEFFICIENT OF VARIATION 14.9 (11.5-15.0); RED BLOOD CELL COUNT(AUTO) 2.87 MIL/uL (4.0-5.2); WHITE BLOOD COUNT (AUTO) 11.4 K/uL (4.3-11.0)
[2017-10-21 06:04] LABS: CALCIUM, SERUM 9.1 mg/dL (8.5-10.1); CARBON DIOXIDE 29 mmol/L (21-32); CHLORIDE 101 mmol/L (98-107); CREATININE 5.8 mg/dL (0.6-1.3); GLUCOSE 172 mg/dL (74-106); MAGNESIUM 2.4 mg/dL (1.8-2.4); POTASSIUM 3.9 mmol/L (3.5-5.1); SODIUM SERUM 139 mmol/L (136-145); UREA NITROGEN, BLOOD 45 mg/dL (7-18); VANCOMYCIN,TROUGH 22 ug/ml (12-20)
--- NOTE | 2017-10-21 06:42 | NUR ---
CUSTOMER SUCCESS SPECIALIST CLOSING NOTES PATIENT RESTING IN BED, APPEARS COMFORTABLE. LEVOPHED TITRATED TO MAINTAIN BLOOD PRESSURE, CURRENTLY @ 7MCG/MIN. WILL ENDORSE THE PATIENT TO THE AM SHIFT NURSE FOR CONTINUITY OF CARE
--- NOTE | 2017-10-21 07:30 | NUR ---
PATIENT OPENS EYES TO NAME, BUT GOES RIGHT BACK TO SLEEP. ORALLY INTUBATED TO VENT, ON WEANING TRIAL , SIMV 4, PS 12, 40% , PEEP 5. NO RESPIRATORY DISTRESS NOTED. RESPIRATIONS EVEN AND UNLABORED. REMAINS ON LEVOPHED GTT AT 8 MCG/MIN FOR BP SUPPORT. SBP> 90'S. AFIB 70'S. RIGHT NARE NGT + PLACEMENT IN STOMACH. FEEDING ONGOING WITH NOVASOURCE AT 20 ML/HR WITH NO SIGNIFICANT RESIDUALS. NO SIGNS OF PAIN/DISCOMFORT NOTED.
[2017-10-21] MEDS: ACETYLCYSTEINE 10% SOLN 400 MG/4 ML VIAL NEB SCH ×3 (07:35→23:53)
--- NOTE | 2017-10-21 08:30 | NUR ---
OKAY TO GIVE ELIQUIS ORDERED PER REENA AVENDANO.
[2017-10-21] MEDS: ASCORBIC ACID 500 MG TABLET PO SCH (08:43)
[2017-10-21] MEDS: FOLIC ACID 1 MG TABLET PO SCH (08:43)
[2017-10-21] MEDS: APIXABAN 2.5 MG TABLET PO SCH ×2 (08:43→17:16)
[2017-10-21] MEDS: ALBUMIN 25% 25 GM in PREMIX 1 EA IV PRN (09:52)
--- NOTE | 2017-10-21 10:00 | NUR ---
HD STARTED AT 0930. ALBUMIN GIVEN BY HD RN FOR BP SUPPORT. REMAINS ON LEVOPHED GTT-TITRATE NEEDED. SEEN BY DR. LIM FOR RENAL FF UP.
--- NOTE | 2017-10-21 12:00 | NUR ---
HD COMPLETED AND TOLERATED WELL WITH 2.5 L OUT.
[2017-10-21] MEDS: NOREPINEPHRINE 16 MG in IV D5W 500 ML IV PRN ×2 (12:21→19:13)
--- NOTE | 2017-10-21 13:30 | NUR ---
SPONTANEOUS BREATHING TRIALS POST HD INITIATED PER DR. THORNTON ORDERS. VENT CHANGES DONE BY RT CPAP, PS 12. CONTINUE TO MONITOR CLOSELY.
[2017-10-21] MEDS ORDERED: VANCOMYCIN 500 MG in IV D5W 100 ML IV PRN (14:00)
--- NOTE | 2017-10-21 14:45 | NUR ---
PATIENT NOT PULLING HER VOLUMES ON THE VENT. SEEN AND EVALUATED BY DR. THORNTON-VITA WHITNEY PATIENT PLACED BACK ON AC 12, TV 450, 40% , PEEP 5 BY RT ROSA.
[2017-10-21] MEDS: RENAL NOVASOURCE 1,000 ML BOTTLE GT PRN (19:13)
--- NOTE | 2017-10-21 19:30 | NUR ---
ACCOUNT EXECUTIVE SALES REPRESENTATIVE INITIAL NOTES RECEIVED REPORT FROM DAY SHIFT NURSE DENY. RECEIVED PATIENT IN BED, AWAKE, ALERT AND ORIENTED X3, ABLE TO NOD YES/NO TO MAKE NEEDS KNOWN. PATIENT IS ORALLY INTUBATED 7.5, 22CM @ LIP, ON CURRENT VENT SETTINGS PRESCRIBED, TOLERATING WELL AT THIS TIME, FREE FROM ANY S/S OF RESPIRATORY DISTRESS. ON TELEMETRY MONITORING, REVEALING AFIB, HR IN THE 80s AT THIS TIME, WITH OCCASIONAL V PACING. NOTED WITH R NARE NGT, PATENT AND INTACT, FLUSHED, ONGOING TUBE FEEDINGS, TOLERATING WELL, 10ML OF STRAW COLORED GASTRIC RESIDUALS NOTED AT THIS TIME. BILATERAL SOFT WRIST RESTRAINTS IN PLACE, TEMPORARILY REMOVED TO ASSESS FOR CIRCULATION, REAPPLIED. LEFT IJ TLC DRESSING CLEAN AND DRY, ALL PORTS FLUSHED WITH NS, SITE FREE FROM ANY S/S OF INFILTRATION OR PHLEBITIS, LEVOPHED CURRENTLY @ 8MCG/MIN. REDDY CATHETER IN PLACE, WITH MINIMAL URINE OUTPUT, PABLITO/RED IN COLOR. HOB KEPT ELEVATED FOR ASPIRATION PRECAUTIONS, BED IN LOWEST AND LOCKED POSITION. CALL LIGHT WITHIN EASY REACH. WILL CONTINUE TO CLOSELY MONITOR THE PATIENT
[2017-10-21] MEDS: ATORVASTATIN 10 MG TABLET PO SCH (22:07)
[2017-10-22] VITALS (87 sets, daily range): BP systolic 82–136; BP diastolic 26–79
[2017-10-22] MEDS: INSULIN REGULAR, HUMAN 100 UNIT/ML 3 ML VIAL SQ PRN ×5 (00:01→23:44)
[2017-10-22] MEDS: MORPHINE SULFATE INJ 4 MG/ML DISP.SYRIN IV PRN (01:12)
--- NOTE | 2017-10-22 01:15 | NUR ---
STOCK BROKER SUPERVISOR NOTES PATIENT APPEARS RESTLESS/AGITATED, NOTED WITH TACHYCARDIA AND TACHYPNEA. UPON ASSESSMENT, PATIENT NODS YES TO HAVING PAIN. MORPHINE ADMINISTERED PRESCRIBED
[2017-10-22] MEDS: IPRATROPIUM NEB FS 0.5 MG/2.5 ML AMPUL.NEB NEB SCH ×4 (01:59→19:47)
[2017-10-22] MEDS: PIPERACILLIN /TAZOBACTAM 2.25 G in IV D5W 100 ML IV SCH ×3 (03:48→20:20)
[2017-10-22 04:57] LABS: CALCIUM, SERUM 9.4 mg/dL (8.5-10.1); CARBON DIOXIDE 27 mmol/L (21-32); CHLORIDE 99 mmol/L (98-107); CREATININE 6.1 mg/dL (0.6-1.3); GLUCOSE 142 mg/dL (74-106); POTASSIUM 4.1 mmol/L (3.5-5.1); SODIUM SERUM 137 mmol/L (136-145); UREA NITROGEN, BLOOD 54 mg/dL (7-18)
[2017-10-22 05:03] LABS: HEMATOCRIT 27 % (33-45); HEMOGLOBIN 8.8 g/dL (11.5-14.8); MEAN CORPUSCULAR HGB CONC 33 g/dl (31.0-36.0); MEAN CORPUSCULAR VOLUME 97 fL (82-100); PLATELET COUNT (AUTO) 209 /CMM (150-450); RDW COEFFICIENT OF VARIATION 15.3 (11.5-15.0)
[2017-10-22] MEDS: BLOOD SUGAR DIAGNOSTIC 1 EACH STRIP IN SCH ×4 (05:52→23:43)
[2017-10-22 05:57] LABS: WHITE BLOOD COUNT (AUTO) 10.2 K/uL (4.3-11.0)
[2017-10-22 05:58] LABS: EOSINOPHILS % (AUTO) 3.4 % (0.0-6.0); LYMPHOCYTES % (AUTO) 5.3 % (20.0-44.0); MONOCYTES % (AUTO) 8.7 % (2.0-12.0); NEUTROPHILS # (AUTO) 8.5 /CMM (1.8-8.9); NEUTROPHILS % (AUTO) 82.6 % (43.0-81.0); RED BLOOD CELL COUNT(AUTO) 2.68 MIL/uL (4.0-5.2)
[2017-10-22 05:59] LABS: LYMPHOCYTES # (AUTO) 0.5 /CMM (0.8-4.8); MONOCYTES # (AUTO) 0.9 /CMM (0.1-1.30)
--- NOTE | 2017-10-22 07:03 | NUR ---
ALUMINUM HYDROXIDE PROCESS OPERATOR CLOSING NOTES PATIENT RESTING IN BED, ASLEEP AT THIS TIME. NO ACUTE CHANGES THROUGHOUT THE SHIFT. WILL ENDORSE THE PATIENT TO THE DAY SHIFT NURSE FOR CONTINUITY OF CARE
--- NOTE | 2017-10-22 07:20 | NUR ---
BULK FLUIDS HANDLER: pt.is without sedation, on wrists restraints, awake, eyes contact+, cooperative now, but unable to follow commands strongly well, no pain, large suction amount by report, Afib controlled, KORI 110/74, Levophed turned down to 6 mcg/min, O2sat. over 96%, plan: CPAP today
[2017-10-22] MEDS: ACETYLCYSTEINE 10% SOLN 400 MG/4 ML VIAL NEB SCH ×3 (07:35→23:44)
--- NOTE | 2017-10-22 08:45 | NUR ---
ENAMEL SHADER: is in room, pt.is on CPAP now, reevaluted pt., VS, neuro status, Levophed gtt doses, I/O, NGTF, continue monitoring
[2017-10-22] MEDS: FOLIC ACID 1 MG TABLET PO SCH (09:07)
[2017-10-22] MEDS: APIXABAN 2.5 MG TABLET PO SCH ×2 (09:08→16:19)
[2017-10-22] MEDS: ASCORBIC ACID 500 MG TABLET PO SCH (09:08)
--- NOTE | 2017-10-22 11:10 | NUR ---
ASSIGNMENT EDITOR: is in room/notified re pt.history, pt.current neuro status, Levophed gtt, CPAP today, plan for weaning, I/O, NGTF, O2 sat., wean attempt failed yesterday, meds visit, confirmed: d/c Nitro gtt (pharmacy called before)
--- NOTE | 2017-10-22 13:47 | NUR ---
LEAD AUDITOR: pt.is awake, eyes contact+, rest, weak, reevaluated pt., ABG (pH 7.22, pCO2 66, pO2 91), placed pt. back on AC mode, continue titrate Levophed gtt
[2017-10-22 14:18] LABS: ABG BASE EXCESS -1.4 mmol/L; ABG OXYGEN SATURATION 95.4 % (92.0-98.5); ABG PCO2 66.8 mmHg (35.0-45.0); ABG PH 7.224 (7.350-7.450); AaDO2 117.4 mmHg; COHb 0.2 % (0.5-1.5); MetHb 0.5 % (0.0-1.5); O2Hb 94.7 % (94.0-97.0); PEEP,BG 5 cm H2O; SITE, ABG Right Radial; VENT MODE, BG CPAP PSV 15
--- NOTE | 2017-10-22 18:13 | NUR ---
CRUSHER ASSEMBLER: pt.is rest, able awake up to touch, on wrists restraints for self extubation protection, afib 60-80HR with Vpacing occas., Levophed 8 mcg/min, anuria, O2 sat. over 96%, plan: CPAP at 07.00, ABG at 09.00, HD tomorrow, RT was notified
--- NOTE | 2017-10-22 20:20 | NUR ---
ICU/DIRECT CASTING OPERATOR INFECTIOUS DISEASE MD CAME IN TO SEE PT, NO NEW ORDERS WERE RECEIVED.
[2017-10-22] MEDS: ATORVASTATIN 10 MG TABLET PO SCH (21:27)
--- NOTE | 2017-10-22 23:30 | NUR ---
ICU/RETAIL SERVICE REPRESENTATIVE PT'S BLOOD SUGAR WAS 174, PT WAS GIVEN 3 UNITS FOR THIS WILL CONTINUE TO MONITOR PT'S BLOOD SUGAR ORDERED BY MD. PT WAS TURNED AND REPOSITIONED FOR COMFORT AND CARE.
[2017-10-23] VITALS (72 sets, daily range): BP systolic 73–138; BP diastolic 34–71
--- NOTE | 2017-10-23 02:10 | NUR ---
ICU/DRUM BUILDER PT WAS GIVEN AM CARE ALONG WITH ORAL CARE. PT TOLERATED THIS WELL, REMAINS ON CURRENT VENT SETTINGS WITH SATURATION AT 98%. PT WAS TURNED AND REPOSITIONED FOR COMFORT AND CARE. NO ACUTE DISTRESS SEEN AT THIS TIME. WILL CONTINUE TO MONITOR THIS PT.
[2017-10-23] MEDS: IPRATROPIUM NEB FS 0.5 MG/2.5 ML AMPUL.NEB NEB SCH ×4 (02:13→20:14)
[2017-10-23] MEDS: PIPERACILLIN /TAZOBACTAM 2.25 G in IV D5W 100 ML IV SCH ×3 (03:08→19:45)
[2017-10-23] MEDS: NOREPINEPHRINE 16 MG in IV D5W 500 ML IV PRN ×2 (03:08→18:42)
--- NOTE | 2017-10-23 05:05 | NUR ---
ICU/HOTEL SERVICES SUPERVISOR AM LABS WERE DRAWN AND CHEST X-RAY WAS DONE, AWAIT ANY CRITICAL LAB VALUES. PT WAS TURNED AND REPOSITIONED FOR COMFORT AND CARE.
--- NOTE | 2017-10-23 05:40 | NUR ---
PATIENT RECEIVED ON MECHANICAL VENTILATOR PLUGGED INTO RED OUTLET. VENT ALARMS CHECKED & AUDIBLE THROUGHOUT ICU. CUFF PRESSURE CHECKED. BILATERAL BREATH SOUNDS AUSCULTATED. PT SUCTIONED Q2 + PRN FOR MODERATE AMOUNT OF PALE YELLOW SEMI-THICK SECRETIONS. AMBU BAG AT HOB. Addendum: 10/23/17 at 0540 by AJ MURRAY RT Amended: Links added.
[2017-10-23] MEDS: BLOOD SUGAR DIAGNOSTIC 1 EACH STRIP IN SCH ×4 (06:14→23:07)
--- NOTE | 2017-10-23 06:28 | NUR ---
ICU/FOOD SERVICE MANAGER ACCU CHECK WAS DONE WITH BLOOD SUGAR AT 129, THERE IS NO COVERAGE FOR THIS PER MD ORDERS. PT WAS TURNED AND REPOSITIONED FOR COMFORT AND CARE.
--- NOTE | 2017-10-23 07:30 | NUR ---
HYDROLOGY TEACHER: pt.is awake, eyes contact+, rest, can follow commands, no pain, on wrists restraints for self extubation protection, SR, SBP 90-100, O2sat. over 95%, on Levophed gtt 8 mcg/min now, suctioned well, RT, HD nurse are in room, updated with all above, POC, started CPAP mode, notified HD nurse/checked HD order, order for BMP, CBC today placed in
--- NOTE | 2017-10-23 07:31 | NUR ---
CAR REPAIRER: Afib controlled, Vpacing occas. (no SR)
[2017-10-23] MEDS: ACETYLCYSTEINE 10% SOLN 400 MG/4 ML VIAL NEB SCH ×3 (07:35→23:22)
--- NOTE | 2017-10-23 07:35 | NUR ---
CUSTOMER CONTACT REPRESENTATIVE: TLC blue lumen is occluded
[2017-10-23 08:21] LABS: EOSINOPHILS % (AUTO) 3.3 % (0.0-6.0); RED BLOOD CELL COUNT(AUTO) 2.71 MIL/uL (4.0-5.2)
[2017-10-23 08:24] LABS: BASOPHILS # (AUTO) 0.1 /CMM (0.0-0.2); HEMATOCRIT 27 % (33-45); LYMPHOCYTES # (AUTO) 0.6 /CMM (0.8-4.8); MEAN CORPUSCULAR HGB CONC 32 g/dl (31.0-36.0); MEAN CORPUSCULAR VOLUME 98 fL (82-100); MONOCYTES # (AUTO) 0.8 /CMM (0.1-1.30); NEUTROPHILS # (AUTO) 7.6 /CMM (1.8-8.9)
[2017-10-23 08:26] LABS: CALCIUM, SERUM 9.7 mg/dL (8.5-10.1); CARBON DIOXIDE 27 mmol/L (21-32); CHLORIDE 98 mmol/L (98-107); CREATININE 7.1 mg/dL (0.6-1.3); GLUCOSE 119 mg/dL (74-106); POTASSIUM 3.9 mmol/L (3.5-5.1); SODIUM SERUM 135 mmol/L (136-145); UREA NITROGEN, BLOOD 62 mg/dL (7-18)
[2017-10-23 08:27] LABS: HEMOGLOBIN 8.5 g/dL (11.5-14.8); PLATELET COUNT (AUTO) 212 /CMM (150-450); RDW COEFFICIENT OF VARIATION 16.4 (11.5-15.0); WHITE BLOOD COUNT (AUTO) 9.6 K/uL (4.3-11.0)
[2017-10-23 08:28] LABS: LYMPHOCYTES % (AUTO) 10.6 % (20.0-44.0); MONOCYTES % (AUTO) 8.9 % (2.0-12.0); NEUTROPHILS % (AUTO) 77.5 % (43.0-81.0)
--- NOTE | 2017-10-23 08:40 | NUR ---
EMBALMER ASSISTANT: updated HD nurse with current CBC, BMP
[2017-10-23] MEDS: FOLIC ACID 1 MG TABLET PO SCH (09:06)
[2017-10-23] MEDS: ASCORBIC ACID 500 MG TABLET PO SCH (09:06)
[2017-10-23] MEDS: ERGOCALCIFEROL (VITAMIN D 2) 50,000 UNIT CAPSULE PO SCH (09:13)
[2017-10-23 09:21] LABS: EOSINOPHILS % (MANUAL) 4 % (0-4); LYMPHOCYTES % (MANUAL) 9 % (16-48); MONOCYTES % (MANUAL) 9 % (0-11.0); NEUTROPHILS % (MANUAL) 78 (42-76)
[2017-10-23] MEDS: APIXABAN 2.5 MG TABLET PO SCH ×2 (10:44→17:15)
--- NOTE | 2017-10-23 10:51 | NUR ---
HISTORIOGRAPHY PROFESSOR: pt.is rest, no SOB, getting HD during at list for 4hrs today per order, Levophed 12 mcg/min now, on CPAP since 02.07, O2 sat. over 96%, is in room, updated with pt.VS, all above, spoke with RT, said: unable to continue weaning process with HD, pressor+, waiting to speak with for next POC, placed pt. back on AC mode, RT is aware
[2017-10-23] MEDS: INSULIN REGULAR, HUMAN 100 UNIT/ML 3 ML VIAL SQ PRN ×3 (12:41→23:09)
[2017-10-23] MEDS: CITRIC ACID/SODIUM CITRATE (BICITRA)15 ML UDC PO SCH ×3 (13:33→21:08)
--- NOTE | 2017-10-23 20:14 | NUR ---
PT RECEIVED ORALLY INTUBATED WITH A 7.5 ETT SECURED AT 22 CM AT THE LIP LINE. PT IS ON THE VENT WITH NOTED SETTINGS VENT ALARMS SET AND AUDIBLE. VENT IS PLUGGED INTO RED OUTLET. SUPERVISOR LAMP SHADES CUFF PRESSURE NOTED. SUCTIONED MODERATE YELLOW/JOHN THICK SECRETIONS. NO RESPIRATORY DISTRESS NOTED AT THIS TIME, WILL CONTINUE TO MONITOR THE PT.
[2017-10-23] MEDS: ATORVASTATIN 10 MG TABLET PO SCH (21:08)
[2017-10-23] MEDS: RENAL NOVASOURCE 1,000 ML BOTTLE GT PRN (23:09)
--- NOTE | 2017-10-23 23:55 | NUR ---
ICU/PRINT TRAFFIC MANAGER PT'S BLOOD SUGAR WAS 207, WHICH WAS 207. REGULAR INSULIN WAS GIVEN 4 UNITS FOR THIS. WILL CONTINUE TO MONITOR SUGAR PER MD ORDERS AND HOSPITAL PROTOCOL. PT WAS TURNED AND REPOSITIONED FOR COMFORT AND CARE.
[2017-10-24] VITALS (85 sets, daily range): BP systolic 82–137; BP diastolic 40–84
--- NOTE | 2017-10-24 00:30 | NUR ---
ICU/OVERHEAD LINE WORKER CHARGE NURSE MADE AWARE THAT THE BLOOD PRESSURE WAS 84/41, LEVO INCREASED TO 10MCG FROM 9 MCG. WILL CONTINUE TO MONITOR THE BLOOD PRESSURE.
[2017-10-24] MEDS: IPRATROPIUM NEB FS 0.5 MG/2.5 ML AMPUL.NEB NEB SCH ×4 (01:44→19:19)
--- NOTE | 2017-10-24 02:00 | NUR ---
ICU/BUSINESS QUALITY ASSURANCE ANALYST PT WAS GIVEN AM CARE ALONG WITH ORAL CARE. PT TOLERATED THIS WELL, REMAINS ON CURRENT VENT SETTINGS WITH SATURATION AT 98%. PT WAS TURNED AND REPOSITIONED FOR COMFORT AND CARE. NO ACUTE DISTRESS SEEN AT THIS TIME. WILL CONTINUE TO MONITOR THIS PT.
[2017-10-24] MEDS: PIPERACILLIN /TAZOBACTAM 2.25 G in IV D5W 100 ML IV SCH ×3 (03:12→18:36)
--- NOTE | 2017-10-24 04:10 | NUR ---
ICU/CORRECTION LIEUTENANT AM LAB WAS DRAWN WELL CHEST XRAY. AWAIT ANY CRITICAL LAB VALUES
[2017-10-24] MEDS: BLOOD SUGAR DIAGNOSTIC 1 EACH STRIP IN SCH ×4 (06:18→21:25)
[2017-10-24] MEDS: INSULIN REGULAR, HUMAN 100 UNIT/ML 3 ML VIAL SQ PRN ×3 (06:19→17:38)
--- NOTE | 2017-10-24 06:20 | NUR ---
ICU/COAL CUTTING MACHINE OPERATOR PT'S BLOOD SUGAR WAS 140, WHICH REGULAR INSULIN WAS GIVEN 2 UNITS FOR THIS. WILL CONTINUE TO MONITOR SUGAR PER MD ORDERS AND HOSPITAL PROTOCOL. PT WAS TURNED AND REPOSITIONED FOR COMFORT AND CARE.
--- NOTE | 2017-10-24 07:30 | NUR ---
AWAKE, FOLLOWS COMMANDS. ORALLY INTUBATED TO FULL VENT SUPPORT WITHOUT DISTRESS. PLAN FOR VENT WEANIING THIS MORNING. REMAINS ON LEVOPHED DRIP AT 10 MCG/MIN-WILL TITRATE ABLE. RIGHT NARE NGT INPLACED-NOVASOURCE AT 20 ML/HR-WITHOUT RESIDUALS. AFEBRILE.
[2017-10-24] MEDS: ACETYLCYSTEINE 10% SOLN 400 MG/4 ML VIAL NEB SCH ×2 (07:35→13:31)
[2017-10-24] MEDS: ASCORBIC ACID 500 MG TABLET PO SCH (08:31)
[2017-10-24] MEDS: CITRIC ACID/SODIUM CITRATE (BICITRA)15 ML UDC PO SCH ×4 (08:31→21:24)
[2017-10-24] MEDS: FOLIC ACID 1 MG TABLET PO SCH (08:31)
[2017-10-24] MEDS: APIXABAN 2.5 MG TABLET PO SCH ×2 (08:31→17:00)
[2017-10-24] MEDS ORDERED: DC PROPOFOL WHEN EXTUBATED XX PRN ×2 (09:00→11:45)
--- NOTE | 2017-10-24 09:00 | NUR ---
VENT CHANGES MADE BY RT TO SIMV 4, PS 12, PEEP 5, 40%. MONITOR CLOSELY.
--- NOTE | 2017-10-24 10:00 | NUR ---
ONGOING TITRATION OF LEVOPHED DRIP - 6 MCG/MIN AT THIS TIME. SBP>100.
[2017-10-24 10:13] LABS: ABG BASE EXCESS 2.9 mmol/L; ABG OXYGEN SATURATION 97.2 % (92.0-98.5); ABG PCO2 50.4 mmHg (35.0-45.0); ABG PH 7.373 (7.350-7.450); ABG PO2 97.4 mmHg (75.0-100.0); AaDO2 129.8 mmHg; COHb 0.3 % (0.5-1.5); O2Hb 96.9 % (94.0-97.0); SITE, ABG Right Radial
--- NOTE | 2017-10-24 10:15 | NUR ---
PATIENT FULLY AWAKE AND COOPERATIVE. FOLLOWS SIMPLE COMMANDS. BUE SOFT WRIST RESTRAINTS DISCONTINUED. NO ATTEMPTS TO REACH FOR ETT-CONTINUE TO MONITOR.
--- NOTE | 2017-10-24 11:00 | NUR ---
DR. THORNTON AT BEDSIDE-MD SPOKE TO PATIENT FAMILY REGARDING CONDITION/PLAN OF CARE.
--- NOTE | 2017-10-24 11:30 | NUR ---
CONTINUE ON SPONTANEOUS BREATHING TRIALS, NO RESP. DISTRESS NOTED. VITAL SIGNS STABLE.
--- NOTE | 2017-10-24 11:50 | NUR ---
PATIENT RE-EVALUATED BY DR. [place] TO EXTUBATE PER . RT AWARE.
--- NOTE | 2017-10-24 12:03 | NUR ---
RT PER DR THOMAS ORDER PATIENT EXTUBATED AND PLACED ON 2L N/C YVES WELL. WILL CONT TO MONITOR CLOSELY. RN AT BEDSIDE
--- NOTE | 2017-10-24 13:00 | NUR ---
PATIENT REMAINS AWAKE AND ORIENTED. NO RESPIRATORY DISTRESS POST EXTUBATION. KEPT HOB ELEVATED. ABLE TO DO DEEP BREATHING AND COUGHING EXERCISES. ABG AT 1300 PER MD ORDER -RT AWARE. TITRATING DOWN ON LEVOPHED GTT AT 4 MCG/MIN. OKAY TO ADVANCE DIET TOLERATED PER DR. THORNTON. ABLE TO SWALLOW SIPS OF WATER WITHOUT COUGHING. TO START WITH CLEAR LIQUIDS AT THIS TIME.
[2017-10-24 13:52] LABS: ABG BASE EXCESS 1.8 mmol/L; ABG PCO2 61.7 mmHg (35.0-45.0); ABG PH 7.292 (7.350-7.450); ABG PO2 75.5 mmHg (75.0-100.0); AaDO2 42.1 mmHg; COHb 0.3 % (0.5-1.5); MetHb 0.5 % (0.0-1.5); O2Hb 93.2 % (94.0-97.0); SITE, ABG Left Radial; VENT MODE, BG NASAL CANNULA
--- NOTE | 2017-10-24 14:45 | NUR ---
DR. THORNTON INFORMED OF ABG RESULTS POST EXTUBATION. PH 7.29, PCO2 61.7, PO2 76. OBTAINED MD ORDERS FOR NOCTURNAL BIPAP RATE 12, 23/11. ABG IN AM.
--- NOTE | 2017-10-24 16:00 | NUR ---
REMAINS AWAKE AND ALERT. COMPLETE PM CARE DONE-ABLE TO HELP IN TURNING AND REPOSITIONING FOR COMFORT. NO DISTRESS POST PM CARE. AFEBRILE. LEVOPHED DRIP DOWN TO 4 MCG/MIN . REDDY CATHETER DISCONTINUED-PATIENT ANURIC.
[2017-10-24] MEDS: NOREPINEPHRINE 16 MG in IV D5W 500 ML IV PRN (17:45)
--- NOTE | 2017-10-24 18:30 | NUR ---
NO CP DISTRESS. ASSISTED WITH DINNER, TOLERATED CLEAR LIQUIDS WELL. NO COUGHING NOTED. WILL ADVANCE TO FULL LIQUIDS IN AM FOR BREAKFAST. LEVOPHED AT 2 MCG/MIN-SBP >100. NO VERBAL COMPLAINT OF PAIN/DISCOMFORT GIVEN. REMAINS AWAKE, ALERT AND ORIENTED.
--- NOTE | 2017-10-24 19:45 | NUR ---
ICU/DIRECT MAIL CLERK CHANGED THE SLIDING SCALE TO AC/HS FROM NPO/ Q 6 HRS ACCU CHECK DUE TO PT BEING EXTUBATED AND TOLERATING LIQUID DIET.
[2017-10-24] MEDS ORDERED: DEXTROSE 50%-WATER 50 ML DISP.SYRIN IV PRN (20:30)
--- NOTE | 2017-10-24 20:30 | NUR ---
ICU/MARKETING ANALYTICS MANAGER PT'S FAMILY CAME IN TO VISIT, GAVE SMALL UPDATE ON PT'S STATUS. THEN FAMILY REMAINED AT BEDSIDE ABOUT 10 MINUTES. PT WAS ASLEEP.
[2017-10-24] MEDS: ATORVASTATIN 10 MG TABLET PO SCH (21:25)
--- NOTE | 2017-10-24 21:29 | NUR ---
ICU/MEAT PROCESS WORKER BLOOD SUGAR IS 125, THERE IS NO COVERAGE FOR THIS. WILL CONTINUE TO MONITOR THE BLOOD SUGAR PER MD ORDERS AND HOSPITAL PROTOCOL.
--- NOTE | 2017-10-24 21:41 | NUR ---
ICU/FRONT END MECHANIC PT'S BLOOD PRESSURE WAS IN THE 80'S, NOTIFIED CHARGE NURSE ABOUT THIS HE INCREASED LEVO FROM 2MCG TO 4MCG. WILL CONTINUE TO MONITOR PT'S BLOOD PRESSURE
--- NOTE | 2017-10-24 22:00 | NUR ---
PT PLACED ON BIPAP 15/5, RATE 12,40%. [id number] Addendum: 10/24/17 at 2234 by STEPHANIE COATS RT PT PLACED ON NOC BIPAP @ 22:00 WITH THE SETTINGS OF 15/5,RATE 12,40%,SPO2 99%. NO RESPIRATORY DISTRESS NOTED AT THIS TIME. ROMI MELENDEZ NOTIFIED
--- NOTE | 2017-10-24 22:05 | NUR ---
ICU/VETERANS SERVICES SPECIALIST BIPAP PLACED ON PT PER DR THORNTON ORDERS FOR NOCTURNAL BIPAP, SETTINGS ARE 15/5, RATE 12, FIO2 40%. WILL CONTINUE TO MONITOR THIS PT. PT WAS TURNED AND REPOSITIONED OR COMFORT AND CARE BEFORE PLACEMENT OF BIPAP
[2017-10-25] VITALS (45 sets, daily range): BP systolic 87–141; BP diastolic 37–84
[2017-10-25] MEDS: ACETYLCYSTEINE 10% SOLN 400 MG/4 ML VIAL NEB SCH ×3 (00:29→13:21)
[2017-10-25] MEDS: IPRATROPIUM NEB FS 0.5 MG/2.5 ML AMPUL.NEB NEB SCH ×4 (00:30→20:11)
[2017-10-25] MEDS: PIPERACILLIN /TAZOBACTAM 2.25 G in IV D5W 100 ML IV SCH ×3 (03:37→20:23)
--- NOTE | 2017-10-25 05:05 | NUR ---
ICU/FISHER HAND LINE PT'S BLOOD PRESSURE WAS IN THE 80'S, NOTIFIED CHARGE NURSE ABOUT THIS HE INCREASED LEVO FROM 4MCG TO 5MCG. WILL CONTINUE TO MONITOR PT'S BLOOD PRESSURE
[2017-10-25 05:21] LABS: BASOPHILS # (AUTO) 0.1 /CMM (0.0-0.2); BASOPHILS % (AUTO) 0.7 % (0.0-2.0); EOSINOPHILS % (AUTO) 3.4 % (0.0-6.0); HEMATOCRIT 27 % (33-45); HEMOGLOBIN 8.6 g/dL (11.5-14.8); LYMPHOCYTES # (AUTO) 0.8 /CMM (0.8-4.8); MEAN CORPUSCULAR HGB CONC 32 g/dl (31.0-36.0); MEAN CORPUSCULAR VOLUME 98 fL (82-100); MONOCYTES # (AUTO) 0.9 /CMM (0.1-1.30); MONOCYTES % (AUTO) 8.4 % (2.0-12.0); NEUTROPHILS # (AUTO) 8.1 /CMM (1.8-8.9); NEUTROPHILS % (AUTO) 79.5 % (43.0-81.0); PLATELET COUNT (AUTO) 219 /CMM (150-450); RDW COEFFICIENT OF VARIATION 16.3 (11.5-15.0); RED BLOOD CELL COUNT(AUTO) 2.73 MIL/uL (4.0-5.2); WHITE BLOOD COUNT (AUTO) 10.2 K/uL (4.3-11.0)
[2017-10-25 05:49] LABS: CALCIUM, SERUM 10.1 mg/dL (8.5-10.1); CARBON DIOXIDE 29 mmol/L (21-32); CHLORIDE 99 mmol/L (98-107); CREATININE 5.8 mg/dL (0.6-1.3); GLUCOSE 153 mg/dL (74-106); MAGNESIUM 2.3 mg/dL (1.8-2.4); PHOSPHORUS 3.2 mg/dL (2.5-4.9); POTASSIUM 3.5 mmol/L (3.5-5.1); SODIUM SERUM 139 mmol/L (136-145); UREA NITROGEN, BLOOD 43 mg/dL (7-18)
[2017-10-25] MEDS: BLOOD SUGAR DIAGNOSTIC 1 EACH STRIP IN SCH ×4 (06:22→21:19)
[2017-10-25] MEDS: INSULIN REGULAR, HUMAN 100 UNIT/ML 3 ML VIAL SQ PRN ×4 (06:22→21:28)
--- NOTE | 2017-10-25 07:30 | NUR ---
OPENING NOTE PT ON CPAP RT PLACING PT ON NC AT 2 LPM AND GIVING BREATHING TREATMENT. PT ALERT X 3 ARMEANING SPEAKING BUT ABLE TO FOLLOW COMMANDS AND FEED SELF ON FULL LIQUID DIET. PT SR AT 79 ON LEVO AT 5 MCGS THROUGH LEFT SUBCLAVIAN SITE CLEAN DRY WITH NO SWELLING OR REDNESS. PT HAS HD CATHETER FOR DIALYSIS WHICH IS TO OCCUR TODAY. BED IN LOW POSITION LOCKED ALRAMS ENAMEL DRIER LIGHT WITHIN REACH OF PT.
--- NOTE | 2017-10-25 07:47 | NUR ---
pt is awake and follow commands,placed on NC @ 3lpm o2 flow. pt. looks comfortable on above O2 settings. b/s diminished bilateral. Addendum: 10/25/17 at 0924 by PABLO ROME RT Amended: Links added.
[2017-10-25] MEDS: ASCORBIC ACID 500 MG TABLET PO SCH (08:43)
[2017-10-25] MEDS: CITRIC ACID/SODIUM CITRATE (BICITRA)15 ML UDC PO SCH ×4 (08:43→21:19)
[2017-10-25] MEDS: APIXABAN 2.5 MG TABLET PO SCH ×2 (08:43→17:51)
[2017-10-25] MEDS: FOLIC ACID 1 MG TABLET PO SCH (08:43)
[2017-10-25 08:45] LABS: ABG BASE EXCESS 2.4 mmol/L; ABG OXYGEN SATURATION 92.9 % (92.0-98.5); ABG PCO2 62.7 mmHg (35.0-45.0); ABG PH 7.298 (7.350-7.450); ABG PO2 70.4 mmHg (75.0-100.0); AaDO2 91.7 mmHg; COHb 0.4 % (0.5-1.5); O2Hb 92.5 % (94.0-97.0); SITE, ABG Left Brachial; VENT MODE, BG nasal cannula
--- NOTE | 2017-10-25 09:19 | NUR ---
downgrade to 2 lpm o2 flow as order. Addendum: 10/25/17 at 0919 by PABLO ROME RT Amended: Links added.
--- NOTE | 2017-10-25 18:46 | NUR ---
CLOSING NOTE PT APPEARS RESTING WELL NO DISTRESS REMAINS ON LEVOPHED AT 5mcg/min HD 1000ML OUT 1 BM CALL MARI WITHIN REACH BED IN LOW POSITION ALARMS ON WILL ENDORSE CARE TO BIKE ASSEMBLER RN.
[2017-10-25] MEDS: ATORVASTATIN 10 MG TABLET PO SCH (21:19)
[2017-10-26] VITALS (58 sets, daily range): BP systolic 83–128; BP diastolic 37–75
[2017-10-26] MEDS: ACETYLCYSTEINE 10% SOLN 400 MG/4 ML VIAL NEB SCH ×4 (00:02→23:30)
[2017-10-26] MEDS: IPRATROPIUM NEB FS 0.5 MG/2.5 ML AMPUL.NEB NEB SCH ×4 (01:30→19:51)
[2017-10-26] MEDS: PIPERACILLIN /TAZOBACTAM 2.25 G in IV D5W 100 ML IV SCH ×3 (03:23→20:12)
[2017-10-26 05:07] LABS: BASOPHILS % (AUTO) 0.4 % (0.0-2.0); EOSINOPHILS % (AUTO) 2.9 % (0.0-6.0); HEMATOCRIT 28 % (33-45); LYMPHOCYTES # (AUTO) 0.9 /CMM (0.8-4.8); LYMPHOCYTES % (AUTO) 8.1 % (20.0-44.0); MEAN CORPUSCULAR HGB CONC 32 g/dl (31.0-36.0); MEAN CORPUSCULAR VOLUME 98 fL (82-100); MONOCYTES # (AUTO) 0.8 /CMM (0.1-1.30); MONOCYTES % (AUTO) 7.9 % (2.0-12.0); NEUTROPHILS # (AUTO) 8.5 /CMM (1.8-8.9); NEUTROPHILS % (AUTO) 80.7 % (43.0-81.0); PLATELET COUNT (AUTO) 239 /CMM (150-450); RDW COEFFICIENT OF VARIATION 15.9 (11.5-15.0); RED BLOOD CELL COUNT(AUTO) 2.87 MIL/uL (4.0-5.2); WHITE BLOOD COUNT (AUTO) 10.5 K/uL (4.3-11.0)
[2017-10-26 05:26] LABS: CALCIUM, SERUM 10.1 mg/dL (8.5-10.1); CARBON DIOXIDE 31 mmol/L (21-32); CHLORIDE 97 mmol/L (98-107); GLUCOSE 144 mg/dL (74-106); MAGNESIUM 2.4 mg/dL (1.8-2.4); PHOSPHORUS 4.1 mg/dL (2.5-4.9); POTASSIUM 3.4 mmol/L (3.5-5.1); SODIUM SERUM 139 mmol/L (136-145); UREA NITROGEN, BLOOD 49 mg/dL (7-18)
--- NOTE | 2017-10-26 06:26 | NUR ---
RN NOTE PT REMAINS IN NO ACUTE DISTRESS IN BED. PT DID NOT HAVE ANY SIGNIFICANT CHANGE IN CONDITION DURING SHIFT. PT TOLERATED O2 @ 2 LPM VIA NC WELL WITH O2 SAT @ 94%. ALL NEEDS MET, ALL ORDERS CARRIED OUT. WILL ENDORSE CARE TO AM RN FOR CONTINUITY OF CARE.
--- NOTE | 2017-10-26 07:30 | NUR ---
OPENING NOTE PT ON NC AT 2 LPM AND GIVING BREATHING TREATMENT. PT ALERT X 3 ARMEAN SPEAKING BUT ABLE TO FOLLOW COMMANDS AND FEED SELF ON FULL LIQUID DIET. PT A-FIB AT 90'S ON LEVO AT 5 MCGS THROUGH LEFT SUBCLAVIAN SITE CLEAN DRY WITH NO SWELLING OR REDNESS. PT ALSO HAS V-PACER CHLOE PT HAS HD CATHETER FOR DIALYSIS WHICH OCCURRED YESTERDAY. BED IN LOW POSITION LOCKED ALARMS VICE PRESIDENT OF CONTRACTS LIGHT WITHIN REACH OF PT.
[2017-10-26] MEDS: ASCORBIC ACID 500 MG TABLET PO SCH (09:22)
[2017-10-26] MEDS: FOLIC ACID 1 MG TABLET PO SCH (09:22)
[2017-10-26] MEDS: CITRIC ACID/SODIUM CITRATE (BICITRA)15 ML UDC PO SCH ×4 (09:22→20:14)
[2017-10-26] MEDS: APIXABAN 2.5 MG TABLET PO SCH ×2 (09:23→16:56)
[2017-10-26] MEDS: BLOOD SUGAR DIAGNOSTIC 1 EACH STRIP IN SCH ×4 (10:05→21:18)
[2017-10-26] MEDS: INSULIN REGULAR, HUMAN 100 UNIT/ML 3 ML VIAL SQ PRN ×2 (10:12→17:34)
[2017-10-26] MEDS: GUAIFENESIN/D-METHORPHAN HB 5 ML UDC PO PRN ×2 (11:07→13:00)
[2017-10-26] MEDS ORDERED: NOREPINEPHRINE 16 MG in IV D5W 500 ML IV PRN (16:00)
--- NOTE | 2017-10-26 18:31 | NUR ---
CLOSING NOTE PT APPEARS RESTING WELL NO DISTRESS REMAINS ON LEVOPHED AT 5mcg/min HD 2000ML OUT 1 BM CALL MARI WITHIN REACH BED IN LOW POSITION ALARMS ON WILL ENDORSE CARE TO WASHING AND SCREENING PLANT SUPERVISOR RN.
--- NOTE | 2017-10-26 20:00 | NUR ---
GRANT SPECIALIST - NOTES - PT ON NC AT 2 LPM. PT ALERT X 3 BENGALI SPEAKING BUT ABLE TO FOLLOW COMMANDS AND FEED SELF. PT A-FIB ON LEVO AT 5 MCGS THROUGH LEFT SUBCLAVIAN SITE CLEAN DRY WITH NO SWELLING OR REDNESS. PT ALSO HAS V-PACER CHLOE PT HAS HD CATHETER FOR DIALYSIS. BED IN LOW POSITION LOCKED ALARMS MEDICINE TEACHER LIGHT WITHIN REACH OF PT.
[2017-10-26] MEDS: ATORVASTATIN 10 MG TABLET PO SCH (21:18)
--- NOTE | 2017-10-26 22:30 | NUR ---
PT PLACED ON BIPAP 15/5 RATE 12 30% FIO2
--- NOTE | 2017-10-26 23:00 | NUR ---
PT SATTING LOW 90S- HIGH 80S ON 30% FI02 ON BIPAP. PT INCREASED TO 40% FI02
[2017-10-27] VITALS (74 sets, daily range): BP systolic 75–147; BP diastolic 37–84
[2017-10-27] MEDS: IPRATROPIUM NEB FS 0.5 MG/2.5 ML AMPUL.NEB NEB SCH ×5 (01:30→23:46)
--- NOTE | 2017-10-27 02:30 | NUR ---
PT REFUSED BIPAP, PT REEDUCATED ON NECESITY OF BIPAP AND THAT THE DOCTOR ORDERED BIPAP, PT STILL REFUSED. SO PT PLACED ON 2L NC
[2017-10-27] MEDS: PIPERACILLIN /TAZOBACTAM 2.25 G in IV D5W 100 ML IV SCH ×3 (04:26→20:04)
[2017-10-27 04:51] LABS: BASOPHILS # (AUTO) 0.1 /CMM (0.0-0.2); BASOPHILS % (AUTO) 0.7 % (0.0-2.0); EOSINOPHILS % (AUTO) 2.3 % (0.0-6.0); HEMATOCRIT 26 % (33-45); HEMOGLOBIN 8.2 g/dL (11.5-14.8); LYMPHOCYTES # (AUTO) 0.7 /CMM (0.8-4.8); LYMPHOCYTES % (AUTO) 8.9 % (20.0-44.0); MEAN CORPUSCULAR HGB CONC 32 g/dl (31.0-36.0); MEAN CORPUSCULAR VOLUME 98 fL (82-100); MONOCYTES # (AUTO) 0.7 /CMM (0.1-1.30); MONOCYTES % (AUTO) 8.6 % (2.0-12.0); NEUTROPHILS # (AUTO) 6.7 /CMM (1.8-8.9); NEUTROPHILS % (AUTO) 79.5 % (43.0-81.0); PLATELET COUNT (AUTO) 237 /CMM (150-450); RDW COEFFICIENT OF VARIATION 16.4 (11.5-15.0); RED BLOOD CELL COUNT(AUTO) 2.62 MIL/uL (4.0-5.2); WHITE BLOOD COUNT (AUTO) 8.4 K/uL (4.3-11.0)
[2017-10-27 05:05] LABS: CALCIUM, SERUM 8.9 mg/dL (8.5-10.1); CARBON DIOXIDE 31 mmol/L (21-32); CHLORIDE 100 mmol/L (98-107); CREATININE 5.2 mg/dL (0.6-1.3); GLUCOSE 123 mg/dL (74-106); MAGNESIUM 2.2 mg/dL (1.8-2.4); PHOSPHORUS 4.1 mg/dL (2.5-4.9); POTASSIUM 3.4 mmol/L (3.5-5.1); SODIUM SERUM 140 mmol/L (136-145); UREA NITROGEN, BLOOD 30 mg/dL (7-18)
--- NOTE | 2017-10-27 07:50 | NUR ---
RN NOTES RECEIVED PT IN BED, ASLEEP. ON 02 3LPM VIA NC SINCE 0230 AM. ON LEVO AT 5 MCG/MIN INFUSING ON L IJ. AFIB ON DISC RECORDIST. NO PAIN/DISCOMFORT NOTED. KEPT COMFORTABLE WILL MONITOR CLOSELY
[2017-10-27] MEDS: ACETYLCYSTEINE 10% SOLN 400 MG/4 ML VIAL NEB SCH ×3 (07:59→23:46)
[2017-10-27] MEDS: INSULIN REGULAR, HUMAN 100 UNIT/ML 3 ML VIAL SQ PRN ×2 (08:09→12:55)
[2017-10-27] MEDS: BLOOD SUGAR DIAGNOSTIC 1 EACH STRIP IN SCH ×4 (08:09→21:59)
[2017-10-27] MEDS: APIXABAN 2.5 MG TABLET PO SCH ×2 (08:14→16:47)
[2017-10-27] MEDS: FOLIC ACID 1 MG TABLET PO SCH (08:14)
[2017-10-27] MEDS: ASCORBIC ACID 500 MG TABLET PO SCH (08:14)
[2017-10-27] MEDS: CITRIC ACID/SODIUM CITRATE (BICITRA)15 ML UDC PO SCH ×4 (08:14→21:55)
--- NOTE | 2017-10-27 08:25 | NUR ---
DOWNGRADE O2 SETTINGS FROM 2LPM TO 1 LPM O2 FLOW. Addendum: 10/27/17 at 0826 by PABLO ROME RT Amended: Links added.
--- NOTE | 2017-10-27 08:30 | NUR ---
RN NOTES PT IS AWAKE, ALERT. LEVO TURNED OFF, BP 132/78
--- NOTE | 2017-10-27 09:29 | NUR ---
RN NOTES PT RESTING IN BED COMFORTABLY, ON O2@2LPM VIA NC. NOTED BP 85/38, LEVO RESTARTED.
[2017-10-27 10:57] LABS: ABG BASE EXCESS 2.4 mmol/L; ABG OXYGEN SATURATION 90.5 % (92.0-98.5); ABG PCO2 53.8 mmHg (35.0-45.0); ABG PH 7.346 (7.350-7.450); ABG PO2 61.8 mmHg (75.0-100.0); AaDO2 52.6 mmHg; COHb 0.3 % (0.5-1.5); MetHb 0.8 % (0.0-1.5); O2Hb 89.5 % (94.0-97.0); SITE, ABG Left Brachial; VENT MODE, BG nasal cannula
--- NOTE | 2017-10-27 12:56 | NUR ---
WOUND CARE FOLLOWUP: SACRAL AREA RE-ASSESSED TODAY AND NOTED TO HAVE RESOLVING DTI. RED/PINK AREA NOTED WITH SLIGHT PEELING OF SKIN, NO OPEN AREA, NO DRAINAGE, NO PURPLE COLOR NOTED. DISCUSSED WITH NURSING STAFF AND FAMILY MEMBER AT BEDSIDE. SURGICAL TEAM CONTINUES TO FOLLOW PT. DEFER TO SURGICAL TEAM FOR WOUND TREATMENT PLAN. Addendum: 10/27/17 at 1258 by LORENA VÁSQUEZ WNDNU Amended: Links added.
--- NOTE | 2017-10-27 19:16 | NUR ---
RN NOTES PT RESTING IN BED COMFORTABLY, ON O2@2LPM VIA NC, AWAKE ALERT X3 ABLE TO COMMUNICATE NEEDS, NO ACUTE CHANGE IN CONDITION NOTED. PT OFF LEVOPHED. DENIES PAIN AND DISCOMFORT, NOEL BATH GIVEN. KEPT CLEAN DRY AND COMFORTABLE. ENDORSED TO [facility] RN FOR CONTINUITY OF CARE
--- NOTE | 2017-10-27 19:30 | NUR ---
HEALTH CLUB ATTENDANT INITIAL NOTE RECEIVED PATIENT AWAKE, A/OX3, ABLE TO MAKE NEEDS KNOWN. DENIES PAIN OR DISCOMFORT AT THIS TIME. DENIES SOB. EXPRESSED SHE DOES NOT WANT THE BIPAP ON TONIGHT. RESPIRATIONS EVEN AND UNLABORED ON 2LPMO2 VIA NC. SKIN WARM AND DRY TO TOUCH. ON TELE MONITOR AFIB CONTROLLED 81. WITH LIJ PATENT AND INTACT, WITH TKO. HOB ELEVATED. SIDE RAILS UP AND LOCKED. BED KEPT AT LOWEST POSITION. CALL LIGHT KEPT WITHIN EASY REACH. WILL CONTINUE TO MONITOR.
[2017-10-27] MEDS: ALBUMIN 25% 25 GM in PREMIX 1 EA IV SCH (20:02)
[2017-10-27] MEDS: ATORVASTATIN 10 MG TABLET PO SCH (21:55)
[2017-10-28] VITALS (24 sets, daily range): BP systolic 83–134; BP diastolic 41–66
[2017-10-28] MEDS: ALBUMIN 25% 25 GM in PREMIX 1 EA IV SCH ×2 (03:33→11:05)
[2017-10-28] MEDS: PIPERACILLIN /TAZOBACTAM 2.25 G in IV D5W 100 ML IV SCH (03:33)
[2017-10-28 04:20] LABS: BASOPHILS # (AUTO) 0.1 /CMM (0.0-0.2); BASOPHILS % (AUTO) 0.9 % (0.0-2.0); EOSINOPHILS % (AUTO) 2.3 % (0.0-6.0); HEMATOCRIT 25 % (33-45); HEMOGLOBIN 7.9 g/dL (11.5-14.8); LYMPHOCYTES # (AUTO) 0.7 /CMM (0.8-4.8); LYMPHOCYTES % (AUTO) 11.9 % (20.0-44.0); MEAN CORPUSCULAR HGB CONC 32 g/dl (31.0-36.0); MEAN CORPUSCULAR VOLUME 98 fL (82-100); MONOCYTES # (AUTO) 0.5 /CMM (0.1-1.30); MONOCYTES % (AUTO) 8.7 % (2.0-12.0); NEUTROPHILS # (AUTO) 4.7 /CMM (1.8-8.9); NEUTROPHILS % (AUTO) 76.2 % (43.0-81.0); PLATELET COUNT (AUTO) 209 /CMM (150-450); RDW COEFFICIENT OF VARIATION 16.3 (11.5-15.0); RED BLOOD CELL COUNT(AUTO) 2.53 MIL/uL (4.0-5.2); WHITE BLOOD COUNT (AUTO) 6.2 K/uL (4.3-11.0)
[2017-10-28 04:42] LABS: CARBON DIOXIDE 33 mmol/L (21-32); CHLORIDE 98 mmol/L (98-107); CREATININE 6.6 mg/dL (0.6-1.3); GLUCOSE 106 mg/dL (74-106); MAGNESIUM 2.2 mg/dL (1.8-2.4); PHOSPHORUS 4.9 mg/dL (2.5-4.9); POTASSIUM 3.2 mmol/L (3.5-5.1); SODIUM SERUM 138 mmol/L (136-145); UREA NITROGEN, BLOOD 35 mg/dL (7-18)
[2017-10-28] MEDS: ACETYLCYSTEINE 10% SOLN 400 MG/4 ML VIAL NEB SCH ×2 (07:35→15:10)
[2017-10-28] MEDS: IPRATROPIUM NEB FS 0.5 MG/2.5 ML AMPUL.NEB NEB SCH ×3 (07:35→20:00)
--- NOTE | 2017-10-28 07:39 | NUR ---
GRINDER SET UP OPERATOR INTERNAL CLOSING NOTES NO SIGNIFICANT CHANGES OVERNIGHT. NO C/O PAIN OR DISCOMFORT. NO C/O SOB. RESPIRATIONS EVEN AND UNLABORED ON 2LPMO2 VIA NC. OFF LEVO. ON TELE AFIB CONTROLLED. KEPT CLEAN AND AND DRY. TURNED AND REPOSITIONED Q2 AND PRN. WOUND TX PROVIDED. HOB ELEVATED. SIDE RAILS UP AND LOCKED. BED KEPT AT LOWEST POSITION. CALL LIGHT KEPT WITHIN EASY REACH. CONTINUITY OF CARE ENDORSED TO AM NURSE.
[2017-10-28] MEDS: BLOOD SUGAR DIAGNOSTIC 1 EACH STRIP IN SCH ×4 (08:01→21:33)
[2017-10-28] MEDS: ASCORBIC ACID 500 MG TABLET PO SCH (08:49)
[2017-10-28] MEDS: FOLIC ACID 1 MG TABLET PO SCH (08:49)
[2017-10-28] MEDS: CITRIC ACID/SODIUM CITRATE (BICITRA)15 ML UDC PO SCH ×4 (08:49→21:33)
[2017-10-28] MEDS: APIXABAN 2.5 MG TABLET PO SCH ×2 (08:49→16:32)
[2017-10-28] MEDS: INSULIN REGULAR, HUMAN 100 UNIT/ML 3 ML VIAL SQ PRN ×2 (11:53→18:45)
--- NOTE | 2017-10-28 15:00 | NUR ---
RN NOTE PT HAD HD DONE AT BEDSIDE, TOLERATED WELL, NO ALBUMIN WAS GIVEN DURING HD. OUTPUT 1000 ML. WILL MONITOR PT CLOSELY
--- NOTE | 2017-10-28 18:00 | NUR ---
RN NOTE PT TRANSFERRED TO [facility] INTO ROOM 119-1, FAMILY AWARE.
--- NOTE | 2017-10-28 19:30 | NUR ---
[facility] RN INITIAL NOTE PT RECEIVED SITTING UP IN BED. A/O X3 AND ABLE TO VERBALIZE NEEDS. ON 2L OF O2 VIA NC AND SATURATING 95%. BREATHING EVEN AND UNLABORED. NO C/O OF PAIN OR DISCOMFORT AT THIS TIME. TELE- AFIB 80'S CONTROLLED. HOB ELEVATED AND ON ASPIRATION PRECAUTIONS. IV LIJ CLEAN, DRY AND PATENT. RCW HD CATH IN PLACE AND CLEAN. CALL LIGHT WITHIN REACH. WILL CONTINUE TO MONITOR.
[2017-10-28] MEDS: ATORVASTATIN 10 MG TABLET PO SCH (21:33)
[2017-10-29] VITALS (7 sets, daily range): BP systolic 109–144; BP diastolic 49–85
[2017-10-29] MEDS: ACETYLCYSTEINE 10% SOLN 400 MG/4 ML VIAL NEB SCH ×4 (00:30→22:41)
[2017-10-29] MEDS: IPRATROPIUM NEB FS 0.5 MG/2.5 ML AMPUL.NEB NEB SCH ×4 (00:31→19:39)
--- NOTE | 2017-10-29 00:47 | NUR ---
[facility] RN NOTE ENDORSED TO YORDAN LLANOS FOR CONTINUITY OF CARE.
--- NOTE | 2017-10-29 00:51 | NUR ---
[facility] RN NOTE REPORT RECEIVED FROM NURSE BRUNNER. PT IN BED ASLEEP, AROUSABLE. GETTING B TX PER RT. PT WITH PRODUCTIVE COUGH. NO DISTRESS OR DISCOMFORT NOTED. DENIES PAIN. ON TELE A FIB IN 80'S. SIDE RAILS UP X 3 AND CALL LIGHT WITHIN REACH. CONTINUE TO MONITOR HER.
--- NOTE | 2017-10-29 06:57 | NUR ---
[facility] RN NOTE PT IN BED AWAKE, NO DISTRESS OR DISCOMFORT NOTED. DENIES PAIN. ON TELE MONITOR A FIB HR 80'S. SIDE RAILS UP X 3 AND CALL LIGHT WITHIN REACH. WILL ENDORSE TO DAY SHIFT NURSE FOR CONTINUE TO CARE.
[2017-10-29 06:59] LABS: BASOPHILS % (AUTO) 0.4 % (0.0-2.0); EOSINOPHILS % (AUTO) 1.9 % (0.0-6.0); HEMATOCRIT 26 % (33-45); HEMOGLOBIN 8.4 g/dL (11.5-14.8); LYMPHOCYTES # (AUTO) 0.7 /CMM (0.8-4.8); LYMPHOCYTES % (AUTO) 9.3 % (20.0-44.0); MEAN CORPUSCULAR HGB CONC 32 g/dl (31.0-36.0); MEAN CORPUSCULAR VOLUME 98 fL (82-100); MONOCYTES # (AUTO) 0.5 /CMM (0.1-1.30); MONOCYTES % (AUTO) 6.7 % (2.0-12.0); NEUTROPHILS # (AUTO) 5.8 /CMM (1.8-8.9); NEUTROPHILS % (AUTO) 81.7 % (43.0-81.0); PLATELET COUNT (AUTO) 217 /CMM (150-450); RDW COEFFICIENT OF VARIATION 16.4 (11.5-15.0); RED BLOOD CELL COUNT(AUTO) 2.65 MIL/uL (4.0-5.2); WHITE BLOOD COUNT (AUTO) 7.1 K/uL (4.3-11.0)
[2017-10-29 07:16] LABS: CALCIUM, SERUM 8.8 mg/dL (8.5-10.1); CARBON DIOXIDE 32 mmol/L (21-32); CHLORIDE 101 mmol/L (98-107); CREATININE 5.3 mg/dL (0.6-1.3); GLUCOSE 108 mg/dL (74-106); MAGNESIUM 2.1 mg/dL (1.8-2.4); PHOSPHORUS 4.7 mg/dL (2.5-4.9); POTASSIUM 3.5 mmol/L (3.5-5.1); SODIUM SERUM 141 mmol/L (136-145); UREA NITROGEN, BLOOD 25 mg/dL (7-18)
[2017-10-29] MEDS: BLOOD SUGAR DIAGNOSTIC 1 EACH STRIP IN SCH ×4 (07:36→21:04)
--- NOTE | 2017-10-29 07:45 | NUR ---
[facility] RN NOTE: RECEIVED PATIENT IN BED, ASLEEP, BUT AROUSABLE WHEN CALLING HER NAME. ON O2 2L/MIN VIA NC AND SATURATING 100%. ON AIRPLANE PILOT, A. FIB HR= 98. HOB ELEVATED. (R) CHEST WALL HD CATH NOTED INTACT W/ DRESSING. (R) IJ 3 LUMEN CATHETER NOTED INTACT AND PATENT W/ TRANSPARENT DRESSING IN PLACED. CHEST X-RAY WAS DONE AND AWAITING FOR THE RESULT. CALL LIGHT WITHIN REACH. NEEDS ANTICIPATED.
[2017-10-29] MEDS: CITRIC ACID/SODIUM CITRATE (BICITRA)15 ML UDC PO SCH ×4 (08:32→21:04)
[2017-10-29] MEDS: ASCORBIC ACID 500 MG TABLET PO SCH (08:32)
[2017-10-29] MEDS: FOLIC ACID 1 MG TABLET PO SCH (08:32)
[2017-10-29] MEDS: APIXABAN 2.5 MG TABLET PO SCH ×2 (08:32→17:02)
[2017-10-29] MEDS: Z GUARD REMEDY 2 OZ OINT TP PRN (08:33)
[2017-10-29] MEDS: INSULIN REGULAR, HUMAN 100 UNIT/ML 3 ML VIAL SQ PRN (11:52)
[2017-10-29] MEDS: GUAIFENESIN/D-METHORPHAN HB 5 ML UDC PO PRN (12:14)
--- NOTE | 2017-10-29 15:30 | NUR ---
[facility] RN NOTE: SEEN AND EVALUATED BY THE MIGUEL ÁNGEL FIELDS AND ACCORDING TO MIGUEL ÁNGEL FIELDS THE PATIENT WAS HAVING SOME SHORTNESS OF BREATH UPON AMBULATING W/ O2 2L/MIN VIA NC. PATIENT WALKED ABOUT 15 FT PER PT REPORT.
--- NOTE | 2017-10-29 19:43 | NUR ---
[facility] RN INITIAL NOTE: RECEIVED PATIENT IN BED, ASLEEP, BUT AROUSABLE WHEN CALLING HER NAME. ON O2 2L/MIN VIA NC AND SATURATING 100%. ON BABY FORMULA WORKER, A. FIB HR= 90'S. HOB ELEVATED. (R) CHEST WALL HD CATH NOTED INTACT W/ DRESSING. (R) IJ 3 LUMEN CATHETER NOTED INTACT AND PATENT W/ TRANSPARENT DRESSING IN PLACED. CHEST X-RAY WAS DONE AND AWAITING FOR THE RESULT. CALL LIGHT WITHIN REACH. NEEDS ANTICIPATED.
--- NOTE | 2017-10-29 19:43 | NUR ---
[facility] RN NOTE: PATIENT IN BED, AWAKE, ALERT AND VERBALLY RESPONSIVE. ON O2 2L/MIN VIA NC SATURATING 93%. ON STABLE CONDITION AT THIS TIME. ATE HER DINNER MEAL 100%. REPORT GIVEN TO PM SHIFT NURSE FOR CONTINUITY OF CARE.
[2017-10-29] MEDS: ATORVASTATIN 10 MG TABLET PO SCH (21:04)
[2017-10-30] VITALS: BP 111/59
[2017-10-30] MEDS: IPRATROPIUM NEB FS 0.5 MG/2.5 ML AMPUL.NEB NEB SCH ×4 (01:55→19:23)
[2017-10-30 04:00] VITALS: BP 111/59
[2017-10-30 04:10] VITALS: BP 115/59
[2017-10-30 06:56] LABS: BASOPHILS # (AUTO) 0.1 /CMM (0.0-0.2); BASOPHILS % (AUTO) 0.8 % (0.0-2.0); EOSINOPHILS % (AUTO) 1.4 % (0.0-6.0); HEMATOCRIT 26 % (33-45); HEMOGLOBIN 8.3 g/dL (11.5-14.8); LYMPHOCYTES # (AUTO) 0.6 /CMM (0.8-4.8); LYMPHOCYTES % (AUTO) 8.3 % (20.0-44.0); MEAN CORPUSCULAR HGB CONC 32 g/dl (31.0-36.0); MEAN CORPUSCULAR VOLUME 97 fL (82-100); MONOCYTES # (AUTO) 0.3 /CMM (0.1-1.30); MONOCYTES % (AUTO) 4.8 % (2.0-12.0); NEUTROPHILS # (AUTO) 5.8 /CMM (1.8-8.9); NEUTROPHILS % (AUTO) 84.7 % (43.0-81.0); PLATELET COUNT (AUTO) 209 /CMM (150-450); RDW COEFFICIENT OF VARIATION 16.2 (11.5-15.0); RED BLOOD CELL COUNT(AUTO) 2.66 MIL/uL (4.0-5.2); WHITE BLOOD COUNT (AUTO) 6.8 K/uL (4.3-11.0)
[2017-10-30 06:57] LABS: CALCIUM, SERUM 8.4 mg/dL (8.5-10.1); CARBON DIOXIDE 32 mmol/L (21-32); CHLORIDE 97 mmol/L (98-107); CREATININE 6.6 mg/dL (0.6-1.3); GLUCOSE 93 mg/dL (74-106); POTASSIUM 3.5 mmol/L (3.5-5.1); SODIUM SERUM 138 mmol/L (136-145); UREA NITROGEN, BLOOD 32 mg/dL (7-18)
--- NOTE | 2017-10-30 07:30 | NUR ---
[facility] RN NOTE: RECEIVED PATIENT IN BED, ASLEEP, BUT AROUSABLE WHEN CALLING HER NAME. ON O2 2L/MIN VIA NC AND SATURATING 95%. ON STAFF DEVELOPER, A. FIB HR= 99. HOB ELEVATED. (R) CHEST WALL HD CATH NOTED INTACT W/ DRESSING. (R) IJ 3 LUMEN CATHETER NOTED INTACT AND PATENT W/ TRANSPARENT DRESSING IN PLACED. CALL LIGHT WITHIN REACH. NEEDS ANTICIPATED. POSSIBLE HEMODIALYSIS FOR TODAY. AWAITING FOR THE CHEST X-RAY TO BE DONE.
[2017-10-30] MEDS: BLOOD SUGAR DIAGNOSTIC 1 EACH STRIP IN SCH ×4 (07:42→21:41)
[2017-10-30 08:00] VITALS: BP 119/59
[2017-10-30] MEDS: ACETYLCYSTEINE 10% SOLN 400 MG/4 ML VIAL NEB SCH ×2 (08:03→14:44)
[2017-10-30] MEDS: CITRIC ACID/SODIUM CITRATE (BICITRA)15 ML UDC PO SCH ×4 (09:54→21:40)
[2017-10-30] MEDS: APIXABAN 2.5 MG TABLET PO SCH ×2 (09:54→16:41)
[2017-10-30] MEDS: ERGOCALCIFEROL (VITAMIN D 2) 50,000 UNIT CAPSULE PO SCH (09:54)
[2017-10-30] MEDS: FOLIC ACID 1 MG TABLET PO SCH (09:54)
[2017-10-30] MEDS: ASCORBIC ACID 500 MG TABLET PO SCH (09:54)
[2017-10-30] MEDS: Z GUARD REMEDY 2 OZ OINT TP PRN (10:09)
[2017-10-30 16:00] VITALS: BP 97/60
[2017-10-30] MEDS: INSULIN REGULAR, HUMAN 100 UNIT/ML 3 ML VIAL SQ PRN (17:12)
--- NOTE | 2017-10-30 19:00 | NUR ---
MS RN NOTES RECEIVE PT IN BED A/O X 3, NO S/S OF DISTRESS, STABLE, SAFETY MEASURES IN PLACE, CALL LIGHT WITHIN REACH, WILL CONTINUE TO MONITOR
--- NOTE | 2017-10-30 19:35 | NUR ---
MS RN NOTE: PATIENT IN BED AWAKE AND NOTED TO BE INTERMITTENTLY SLEEPING. ATE HER DINNER 100%. HD DONE TODAY W/ 1.0 L OUTPUT. WILL REPORT TO PM SHIFT NURSE FOR CONTINUITY OF CARE.
--- NOTE | 2017-10-30 20:35 | NUR ---
TRANSFER PT PT TRANSFERRED TO ROOM 205-1 BEDSIDE REPORT GIVEN TO MS 2ND FLR RN NO INCIDENT PT STABLE CONDITION RP MADE AWARE SPOKE TO ANI DAUGHTER APPRECIATIVE TO NURSES.
[2017-10-30 21:00] VITALS: BP 95/61
--- NOTE | 2017-10-30 21:00 | NUR ---
MS RN NOTES RECEIVED TRANSFER FROM [facility] BY BED,A/0 X3,BREATHING REGULAR NOT IN ANY FORM OF DISTRESS.WITH LEFT INTRA JUGULAR CATHETER INTACT AND PATENT.RIGHT CHEST WALL HD CATH FOR HD TREATMENT.ON KCI MATTRESS FOR SKIN MANAGEMENT.CALL LIGHT IN REACH,NEEDS ANTICIPATED.
[2017-10-30] MEDS: ATORVASTATIN 10 MG TABLET PO SCH (21:40)
--- NOTE | 2017-10-30 22:00 | NUR ---
MS RN NOTES ACCU-CHECK BLOOD SUGAR CHECK 87,NO S/S OF HYPOGLYCEMIA.
[2017-10-31] MEDS: ACETYLCYSTEINE 10% SOLN 400 MG/4 ML VIAL NEB SCH ×3 (00:18→14:45)
[2017-10-31] MEDS: IPRATROPIUM NEB FS 0.5 MG/2.5 ML AMPUL.NEB NEB SCH ×4 (00:18→19:46)
--- NOTE | 2017-10-31 00:30 | NUR ---
MS RN NOTES RT AT BEDSIDE ADMINISTERING MUCOMIST TREATMENT SCHEDULE.
--- NOTE | 2017-10-31 01:30 | NUR ---
MS RN NOTES PICC LINE CARED RENDERED
--- NOTE | 2017-10-31 07:14 | NUR ---
MS RN NOTES SLEPT WELL WITH INTERVALS,HAD BM IN SMALL AMOUNT,NO SOB,KEPT WARM THRU OUT SHIFT.IN NO ACUTE DISTRESS.WILL ENDORSE TO DAY NURSE FOR BURT.
[2017-10-31] MEDS: BLOOD SUGAR DIAGNOSTIC 1 EACH STRIP IN SCH ×4 (07:40→21:35)
--- NOTE | 2017-10-31 07:46 | NUR ---
MS RN OPENING NOTES RECEIVED PATIENT IN STABLE CONDITION. IN NO APPARENT DISTRESS. BEDSIDE RAILS ARE UP X2. BED IS LOCKED AND LOWERED. CALL LIGHT IS WITHIN REACH. IV LINE IS INTACT AND PATENT. WILL CONTINUE TO MONITOR.
[2017-10-31 08:00] VITALS: BP 111/57
[2017-10-31 08:37] LABS: CALCIUM, SERUM 8.8 mg/dL (8.5-10.1); CARBON DIOXIDE 34 mmol/L (21-32); CHLORIDE 100 mmol/L (98-107); CREATININE 5.7 mg/dL (0.6-1.3); GLUCOSE 94 mg/dL (74-106); POTASSIUM 3.5 mmol/L (3.5-5.1); SODIUM SERUM 140 mmol/L (136-145); UREA NITROGEN, BLOOD 26 mg/dL (7-18)
[2017-10-31 08:40] LABS: BASOPHILS # (AUTO) 0.1 /CMM (0.0-0.2); BASOPHILS % (AUTO) 0.8 % (0.0-2.0); EOSINOPHILS % (AUTO) 1.5 % (0.0-6.0); HEMATOCRIT 27 % (33-45); HEMOGLOBIN 8.6 g/dL (11.5-14.8); LYMPHOCYTES # (AUTO) 0.7 /CMM (0.8-4.8); LYMPHOCYTES % (AUTO) 10.2 % (20.0-44.0); MEAN CORPUSCULAR HGB CONC 32 g/dl (31.0-36.0); MEAN CORPUSCULAR VOLUME 98 fL (82-100); MONOCYTES # (AUTO) 0.4 /CMM (0.1-1.30); MONOCYTES % (AUTO) 6.3 % (2.0-12.0); NEUTROPHILS # (AUTO) 5.7 /CMM (1.8-8.9); NEUTROPHILS % (AUTO) 81.2 % (43.0-81.0); PLATELET COUNT (AUTO) 243 /CMM (150-450); RED BLOOD CELL COUNT(AUTO) 2.75 MIL/uL (4.0-5.2)
[2017-10-31] MEDS: ASCORBIC ACID 500 MG TABLET PO SCH (09:02)
[2017-10-31] MEDS: FOLIC ACID 1 MG TABLET PO SCH (09:02)
[2017-10-31] MEDS: APIXABAN 2.5 MG TABLET PO SCH ×2 (09:02→16:55)
[2017-10-31] MEDS: CITRIC ACID/SODIUM CITRATE (BICITRA)15 ML UDC PO SCH ×4 (09:03→21:35)
[2017-10-31] MEDS: GUAIFENESIN/D-METHORPHAN HB 5 ML UDC PO PRN ×2 (09:08→21:34)
[2017-10-31] MEDS: INSULIN REGULAR, HUMAN 100 UNIT/ML 3 ML VIAL SQ PRN (12:58)
[2017-10-31 16:00] VITALS: BP 99/54
--- NOTE | 2017-10-31 18:18 | NUR ---
MS RN CLOSING NOTES PATIENT IS STABLE IN NO APPARENT DISTRESS. BEDSIDE RAILS ARE UPX2. BED IS LOCKED AND LOWERED. CALL LIGHT IS WITHIN REACH. ALL NEEDS WERE MET. WILL ENDORSE CARE TO OPEN DIE INSPECTOR NURSE FOR BURT.
--- NOTE | 2017-10-31 19:30 | NUR ---
RN OPENING NOTES: PATIENT IN BED, AOX3, ON O2 AT 2 LPM VIA NC, BREATHING WITH EVEN EXPANSION, NO SIGNS OF RESPIRATORY DISTRESS, AT RATE OF 21 PER MIN. BREATH SOUNDS DIMINISHED OVER BASES, BUT SLIGHT WHEEZING HEARD OVER AUSCULTATION. MAINTAINED HOB ELEVATED. PATIENT HAS LEFT INTERNAL JUGULAR PICC LINE, WITH CLEAN AND INTACT DRESSING, PATENT TO FLUSH. PROVIDED FOR COMFORT AND SAFETY. BED IN LOWEST AND LOCKED POSITION, SIDERAILS UP X 3, CALL LIGHT WITHIN REACH. WILL CONT TO MONITOR. Addendum: 10/31/17 at 2210 by HAYDEN GRANT RN ADDITIONAL NOTES: PATIENT HAS RCW HD CATHETER WITH CLEAN AND INTACT DRESSING. NO SIGNS OF SOILING OR BLEEDING. 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
[2017-10-31 20:00] VITALS: BP 107/56
[2017-10-31] MEDS: ATORVASTATIN 10 MG TABLET PO SCH (21:34)
--- NOTE | 2017-10-31 22:00 | NUR ---
RN NOTES: PATIENT'S BLOOD SUGAR CHECKED AT 129 MG/DL, NO INSULIN INDICATED AT THIS TIME.
[2017-11-01] MEDS: ACETYLCYSTEINE 10% SOLN 400 MG/4 ML VIAL NEB SCH ×4 (01:15→23:40)
[2017-11-01] MEDS: IPRATROPIUM NEB FS 0.5 MG/2.5 ML AMPUL.NEB NEB SCH ×4 (01:15→20:17)
[2017-11-01] MEDS: BLOOD SUGAR DIAGNOSTIC 1 EACH STRIP IN SCH ×4 (06:17→21:28)
--- NOTE | 2017-11-01 06:24 | NUR ---
RN NOTES: BLOOD SUGAR CHECKED AT 106 MG/DL, NO INSULIN INDICATED AT THIS TIME.
--- NOTE | 2017-11-01 06:41 | NUR ---
MS RN CLOSING NOTES: PATIENT IN BED, AOX3, ON O2 AT 2 LPM VIA NC, BREATHING EVEN IN EXPANSION AT RATE OF 20/MIN, NO WHEEZING NOTED, BREATH SOUNDS DIMINISHED AT BASES. APPEARS CALM AND IN NO DISTRESS. LEFT IJ PICC LINE INTACT AND PATENT TO FLUSH. DRESSING CHANGE DONE. HD CATH AT [facility] WITH CLEAN AND INTACT DRESSING. DUE MEDS GIVEN. MORNING CARE RENDERED. PROVIDED FOR COMFORT AND SAFETY. BED IN LOWEST AND LOCKED POSITION, SIDERAILS UP X 3, CALL LIGHT WITHIN REACH. WILL ENDORSE TO AM RN FOR BURT.
--- NOTE | 2017-11-01 07:30 | NUR ---
MS/RN Patient received Patient received from shift superintendent. All needs attended, safety measures in place. Will continue to monitor and ensure safety.
[2017-11-01 08:00] VITALS: BP 133/73
[2017-11-01] MEDS: ASCORBIC ACID 500 MG TABLET PO SCH (08:14)
[2017-11-01] MEDS: FOLIC ACID 1 MG TABLET PO SCH (08:14)
[2017-11-01] MEDS: APIXABAN 2.5 MG TABLET PO SCH ×2 (08:14→17:14)
[2017-11-01] MEDS: CITRIC ACID/SODIUM CITRATE (BICITRA)15 ML UDC PO SCH ×4 (08:14→21:28)
--- NOTE | 2017-11-01 09:00 | NUR ---
MS/RN Medications Morning medications administered, crushed and given with breakfast.
--- NOTE | 2017-11-01 09:37 | NUR ---
MS/RN Morning care Morning care provided.
[2017-11-01 09:45] VITALS: BP 133/73
[2017-11-01 09:47] LABS: CARBON DIOXIDE 33 mmol/L (21-32); CHLORIDE 99 mmol/L (98-107); CREATININE 7.3 mg/dL (0.6-1.3); GLUCOSE 107 mg/dL (74-106); MAGNESIUM 2.3 mg/dL (1.8-2.4); PHOSPHORUS 6.5 mg/dL (2.5-4.9); POTASSIUM 3.8 mmol/L (3.5-5.1); SODIUM SERUM 141 mmol/L (136-145); UREA NITROGEN, BLOOD 34 mg/dL (7-18)
[2017-11-01 10:11] LABS: BASOPHILS % (AUTO) 0.6 % (0.0-2.0); EOSINOPHILS % (AUTO) 1.6 % (0.0-6.0); HEMATOCRIT 26 % (33-45); HEMOGLOBIN 8.8 g/dL (11.5-14.8); LYMPHOCYTES # (AUTO) 0.8 /CMM (0.8-4.8); LYMPHOCYTES % (AUTO) 11.9 % (20.0-44.0); MEAN CORPUSCULAR HGB CONC 34 g/dl (31.0-36.0); MEAN CORPUSCULAR VOLUME 97 fL (82-100); MONOCYTES # (AUTO) 0.4 /CMM (0.1-1.30); MONOCYTES % (AUTO) 6.1 % (2.0-12.0); NEUTROPHILS # (AUTO) 5.3 /CMM (1.8-8.9); NEUTROPHILS % (AUTO) 79.8 % (43.0-81.0); PLATELET COUNT (AUTO) 236 /CMM (150-450); RDW COEFFICIENT OF VARIATION 15.5 (11.5-15.0); RED BLOOD CELL COUNT(AUTO) 2.66 MIL/uL (4.0-5.2); WHITE BLOOD COUNT (AUTO) 6.6 K/uL (4.3-11.0)
[2017-11-01] MEDS ORDERED: EPOETIN ALFA (10,000 UNIT) 10,000 UNIT/ML VIAL SQ ONE (10:30)
--- NOTE | 2017-11-01 10:30 | NUR ---
MS/RN S/B Dr Nelson Seen by Dr Nelson - repeat chest x-ray ordered for tomorrow.
--- NOTE | 2017-11-01 12:00 | NUR ---
MS/RN HDX HDX completed, 2l removed, vital signs stable throughout treatment.
--- NOTE | 2017-11-01 12:07 | NUR ---
MS/RN Blood sugar Blood sugar at noon 102, no coverage needed.
[2017-11-01 16:00] VITALS: BP 101/54
--- NOTE | 2017-11-01 16:00 | NUR ---
MS/RN S/B Jhonny Dawson Seen by Jhonny Dawson - discharge planning for tomorrow to SN[facility]
--- NOTE | 2017-11-01 17:00 | NUR ---
MS/RN Blood sugar Blood sugar at 5p - 118, no coverage needed.
--- NOTE | 2017-11-01 19:07 | NUR ---
MS/RN End note Patient remains in stable condition, will endorse to night nurse.
--- NOTE | 2017-11-01 19:30 | NUR ---
MS RN OPENING NOTES: PATIENT IN BED, AOX3, ON O2 AT 2 LPM VIA NC, BREATHING EVEN AND UNLABORED, BUT NOTED SLIGHT EXPIRATORY WHEEZING OVER UPPER LUNG HINOJOSA. BREATH SOUNDS DIMINISHED AT BASES. PATIENT HAS LEFT IJ PICC LINE WITH CLEAN AND INTACT DRESSING. PATIENT ALSO HAS HD CATHETER OVER [facility] WITH CLEAN AND INTACT DRESSING. PER AM RN REPORT, PATIENT HAS HD THIS AM, WITH 2 L OF FLUID OUTPUT. PROVIDED FOR COMFORT AND SAFETY. BED IN LOWEST NAD LOCKED POSITION, SIDERAILS UP X 3, CALL LIGHT WITHIN REACH. WILL CONT TO MONITOR.
[2017-11-01 20:00] VITALS: BP 98/61
[2017-11-01] MEDS: ATORVASTATIN 10 MG TABLET PO SCH (21:28)
[2017-11-01] MEDS: GUAIFENESIN/D-METHORPHAN HB 5 ML UDC PO PRN (21:31)
--- NOTE | 2017-11-01 21:40 | NUR ---
RN NOTES: BLOOD SUGAR CHECKED AT 120 MG/DL, NO INSULIN INDICATED AT THIS TIME.
[2017-11-02] MEDS: IPRATROPIUM NEB FS 0.5 MG/2.5 ML AMPUL.NEB NEB SCH ×3 (01:50→14:34)
[2017-11-02] MEDS: BLOOD SUGAR DIAGNOSTIC 1 EACH STRIP IN SCH ×2 (06:32→13:23)
--- NOTE | 2017-11-02 07:24 | NUR ---
MS RN CLOSING NOTES: PATIENT IN BED, AOX3, ON O2 AT 2 LPM VIA NC, BREATHING EVEN IN EXPANSION AT RATE OF 21/MIN, NO WHEEZING NOTED, BREATH SOUNDS DIMINISHED AT BASES. APPEARS CALM AND IN NO DISTRESS. LEFT IJ PICC LINE INTACT AND PATENT TO FLUSH. HD CATH AT [facility] WITH CLEAN AND INTACT DRESSING. DUE MEDS GIVEN. MORNING CARE RENDERED. PROVIDED FOR COMFORT AND SAFETY. BED IN LOWEST AND LOCKED POSITION, SIDERAILS UP X 3, CALL LIGHT WITHIN REACH. WILL ENDORSE TO AM RN FOR BURT.
[2017-11-02] MEDS: ACETYLCYSTEINE 10% SOLN 400 MG/4 ML VIAL NEB SCH ×2 (07:26→14:34)
--- NOTE | 2017-11-02 07:30 | NUR ---
MS/RN Patient received Patient received from shift mechanic. All needs attended, safety measures in place. Call light within reach, will continue to monitor and ensure safety.
[2017-11-02 08:00] VITALS: BP_SYST 117; BP_SYST 131; BP_DIAS 58; BP_DIAS 81
[2017-11-02] MEDS: ASCORBIC ACID 500 MG TABLET PO SCH (08:14)
[2017-11-02] MEDS: CITRIC ACID/SODIUM CITRATE (BICITRA)15 ML UDC PO SCH ×2 (08:14→13:23)
[2017-11-02] MEDS: FOLIC ACID 1 MG TABLET PO SCH (08:14)
[2017-11-02] MEDS: APIXABAN 2.5 MG TABLET PO SCH (08:15)
--- NOTE | 2017-11-02 09:00 | NUR ---
MS/RN Medications Morning medications administered as ordered.
--- NOTE | 2017-11-02 11:30 | NUR ---
MS/RN S/B Dr Watson Seen by Dr Watson - patient to be discharged to retirement today for further rehabilitation. process engineering manager made aware and will contact family.
[2017-11-02] MEDS ORDERED: ACET1OOV6 NEB (13:18)
[2017-11-02] MEDS ORDERED: GUAI600T53 PO (13:18)
[2017-11-02] MEDS ORDERED: ATOR10TA PO (13:18)
--- NOTE | 2017-11-02 14:30 | NUR ---
MS/RN Report Report called to Ashley at [facility]. grinder set up operator thread scheduled for 4p.
--- NOTE | 2017-11-02 15:24 | NUR ---
MS/RN Picc line Picc line removed, pressure dressing applied.
--- NOTE | 2017-11-02 16:16 | NUR ---
MS/interpreter for the deaf Patient discharged at 4p to [place], left with paramedics.
== END 2017-11-02 16:15 | DRG 870 ==
LOC: ER 09:58 → TELE 11:31 → MED 10-16 09:12 → ICU 10-18 03:13 → TELE-TD 10-28 18:08 → MEDSG1 10-30 11:04 → MEDSG2 10-30 20:39
PROVIDERS: ADMIT Hospitalist; ATTEND Hospitalist
PROC: 5A1D70Z Performance of Urinary Filtration, Intermittent, Less than 6 Hours Per Day (ICD-10-PCS; 2017-10-16)
PROC: 5A1D70Z Performance of Urinary Filtration, Intermittent, Less than 6 Hours Per Day (ICD-10-PCS; 2017-10-17)
PROC: 5A1955Z Respiratory Ventilation, Greater than 96 Consecutive Hours (ICD-10-PCS; principal; 2017-10-18)
PROC: 0BH17EZ Insertion of Endotracheal Airway into Trachea, Via Natural or Artificial Opening (ICD-10-PCS; 2017-10-18)
PROC: 05HN33Z Insertion of Infusion Device into Left Internal Jugular Vein, Percutaneous Approach (ICD-10-PCS; 2017-10-18)
PROC: B544ZZA Ultrasonography of Left Jugular Veins, Guidance (ICD-10-PCS; 2017-10-18)
PROC: 5A1D70Z Performance of Urinary Filtration, Intermittent, Less than 6 Hours Per Day (ICD-10-PCS; 2017-10-18)
PROC: 5A1D70Z Performance of Urinary Filtration, Intermittent, Less than 6 Hours Per Day (ICD-10-PCS; 2017-10-19)
PROC: 5A1D70Z Performance of Urinary Filtration, Intermittent, Less than 6 Hours Per Day (ICD-10-PCS; 2017-10-20)
PROC: 5A1D70Z Performance of Urinary Filtration, Intermittent, Less than 6 Hours Per Day (ICD-10-PCS; 2017-10-21)
PROC: 5A1D70Z Performance of Urinary Filtration, Intermittent, Less than 6 Hours Per Day (ICD-10-PCS; 2017-10-23)
PROC: 5A1D70Z Performance of Urinary Filtration, Intermittent, Less than 6 Hours Per Day (ICD-10-PCS; 2017-10-25)
PROC: 5A1D70Z Performance of Urinary Filtration, Intermittent, Less than 6 Hours Per Day (ICD-10-PCS; 2017-10-26)
PROC: 5A1D70Z Performance of Urinary Filtration, Intermittent, Less than 6 Hours Per Day (ICD-10-PCS; 2017-10-28)
PROC: 5A1D70Z Performance of Urinary Filtration, Intermittent, Less than 6 Hours Per Day (ICD-10-PCS; 2017-10-30)
PROC: 5A1D70Z Performance of Urinary Filtration, Intermittent, Less than 6 Hours Per Day (ICD-10-PCS; 2017-11-01)
DX: A41.9 Sepsis, unspecified organism (principal); R65.21 Severe sepsis with septic shock; E43 Unspecified severe protein-calorie malnutrition; J15.9 Unspecified bacterial pneumonia; I13.2 Hypertensive heart and chronic kidney disease with heart failure and with stage 5 chronic kidney disease, or end stage renal disease; G93.40 Encephalopathy, unspecified; J15.6 Pneumonia due to other Gram-negative bacteria; J96.01 Acute respiratory failure with hypoxia; J96.02 Acute respiratory failure with hypercapnia; J90 Pleural effusion, not elsewhere classified; N18.6 End stage renal disease; I50.33 Acute on chronic diastolic (congestive) heart failure; D68.59 Other primary thrombophilia; E87.1 Hypo-osmolality and hyponatremia; G45.9 Transient cerebral ischemic attack, unspecified; N39.0 Urinary tract infection, site not specified; J98.11 Atelectasis; E11.22 Type 2 diabetes mellitus with diabetic chronic kidney disease; E88.09 Other disorders of plasma-protein metabolism, not elsewhere classified; I48.2 Chronic atrial fibrillation; Z99.2 Dependence on renal dialysis; E78.5 Hyperlipidemia, unspecified; G90.8 Other disorders of autonomic nervous system; Z95.0 Presence of cardiac pacemaker; Z79.01 Long term (current) use of anticoagulants; D63.8 Anemia in other chronic diseases classified elsewhere; E55.9 Vitamin D deficiency, unspecified; D63.1 Anemia in chronic kidney disease; E66.01 Morbid (severe) obesity due to excess calories; E87.6 Hypokalemia; E83.9 Disorder of mineral metabolism, unspecified; C44.319 Basal cell carcinoma of skin of other parts of face; T14.8XXA Other injury of unspecified body region, initial encounter; I71.2 Thoracic aortic aneurysm, without rupture; L89.150 Pressure ulcer of sacral region, unstageable; L57.0 Actinic keratosis; R29.6 Repeated falls; Z68.35 Body mass index [BMI] 35.0-35.9, adult; G47.33 Obstructive sleep apnea (adult) (pediatric); X58.XXXA Exposure to other specified factors, initial encounter; Y93.9 Activity, unspecified; Y92.009 Unspecified place in unspecified non-institutional (private) residence as the place of occurrence of the external cause
CPT/HCPCS: 31720; 36415; 36600; 70450-TC; 71045-TC; 71250-TC; 74018; 80048-TC; 80053-TC; 80061-TC; 80076-TC; 80202-TC; 81000-TC; 82040-TC; 82803-TC; 82962-TC; 83540-TC; 83605-TC; 83735-TC; 83880; 84100-TC; 84443-TC; 84484-TC; 85025-TC; 85730-TC; 86704; 86705; 86706; 86803; 87040-TC; 87070-TC; 87081-TC; 87086-TC; 87340; 90935-TC; 92611-TC; 93307-TC; 94002-TC; 94003-TC; 94640-TC; 94762-TC; 94799-TC; 95819-TC; 97110-TC; 97116-TC; 97530-TC; 99082-TC; A4216; A4217; A4606; C1751; C9113; J0330; J0885; J1644; J1815; J1940; J2060; J2270; J2543; J3370; J3480; J3490; J7030; J7040; J7050; J7060; P9047; Z7610

== ENCOUNTER 2017-11-09 14:30 | Inpatient (IN) | payer MEDICARE, MEDICAID ==
[~2017-11-09] VITALS: Ht 152.4 cm; Wt 79.4 kg
[2017-11-09] VITALS (17 sets, daily range): BP systolic 81–125; BP diastolic 22–64
[~2017-11-09 14:30] MED LIST changes: +ACET1OOV6 NEB; +APIX2.5T PO; +ASCO500T9 PO; +ATOR10TA PO; +ERGO500014 PO; -ERGOCALCIFEROL (VITAMIN D 2) 50,000 UNIT CAPSULE PO SCH; +FOLI1TAB16 PO; +GUAI600T53 PO; +LINA5TAB PO; +PANT20TA2 PO; +REPA2TAB9 PO; +ROSU10TA PO
--- NOTE | 2017-11-09 14:40 | NUR ---
BB PRIVATE EMS FROM [facility] FOR AMS SINCE 0700 this AM. SEEN BY FOR EVAL. SAFETY AND COMFORT MEASURES PROVIDED. WILL MONITOR.
--- NOTE | 2017-11-09 15:00 | NUR ---
IV ACCESS STARTED. SOLUTIONS EXECUTIVE CLOUD SALES AT FOR BLOOD DRAW.
--- NOTE | 2017-11-09 15:08 | NUR ---
RT AT BS FOR DENISA
[2017-11-09 15:20] LABS: ABG BASE EXCESS 4.7 mmol/L; ABG OXYGEN SATURATION 82.8 % (92.0-98.5); ABG PH 7.287 (7.350-7.450); AaDO2 126.5 mmHg; COHb 1.3 % (0.5-1.5); MetHb 0.4 % (0.0-1.5); O2Hb 81.4 % (94.0-97.0); SITE, ABG Left Radial; VENT MODE, BG NASAL CANNULA
[2017-11-09 15:24] LABS: BASOPHILS % (AUTO) 0.8 % (0.0-2.0); CARBON DIOXIDE 32 mmol/L (21-32); CHLORIDE 100 mmol/L (98-107); CREATININE 3.9 mg/dL (0.6-1.3); EOSINOPHILS % (AUTO) 1.7 % (0.0-6.0); GLUCOSE 86 mg/dL (74-106); HEMATOCRIT 26 % (33-45); HEMOGLOBIN 8.6 g/dL (11.5-14.8); LYMPHOCYTES # (AUTO) 0.8 /CMM (0.8-4.8); LYMPHOCYTES % (AUTO) 18.7 % (20.0-44.0); MEAN CORPUSCULAR HGB CONC 34 g/dl (31.0-36.0); MEAN CORPUSCULAR VOLUME 97 fL (82-100); MONOCYTES # (AUTO) 0.5 /CMM (0.1-1.30); MONOCYTES % (AUTO) 12.6 % (2.0-12.0); NEUTROPHILS # (AUTO) 2.9 /CMM (1.8-8.9); NEUTROPHILS % (AUTO) 66.2 % (43.0-81.0); PLATELET COUNT (AUTO) 200 /CMM (150-450); POTASSIUM 4.8 mmol/L (3.5-5.1); RDW COEFFICIENT OF VARIATION 15.3 (11.5-15.0); RED BLOOD CELL COUNT(AUTO) 2.65 MIL/uL (4.0-5.2); SODIUM SERUM 136 mmol/L (136-145); UREA NITROGEN, BLOOD 22 mg/dL (7-18); WHITE BLOOD COUNT (AUTO) 4.3 K/uL (4.3-11.0)
--- NOTE | 2017-11-09 15:25 | NUR ---
RT PT PLACED ON BIPAP PER DR. ALBARADO ORDERS DUE TO ABNORMAL ABG RESULTS. PT APPEARS TO BE LETHARGIC. SIZE MEDIUM MASK USED. BIPAP SETTINGS PER DR. ALBARADO. BIPAP ALARMS ARE SET AND AUDIBLE. BIPAP IS PLUGGED INTO RED OUTLET WITH BVM BY BEDSIDE. WILL CONTINUE TO MONITOR. Addendum: 11/09/17 at 1715 by FATUMA LIRIANO RT Amended: Links added.
[2017-11-09 15:28] LABS: INR 1.02 (0.85-1.15)
[2017-11-09 15:32] LABS: ALANINE AMINOTRANSFERASE 11 U/L (12-78); ALBUMIN 3.1 g/dL (3.4-5.0); ALKALINE PHOSPHATASE 74 U/L (46-116); ASPARTATE AMINOTRANSFERASE 11 U/L (15-37); BILIRUBIN,DIRECT 0.2 mg/dL (0.0-0.2); BILIRUBIN,TOTAL 0.4 mg/dL (0.2-1.0); TOTAL PROTEIN, SERUM 7.6 g/dL (6.4-8.2); TROPONIN I 0.023 ng/mL (0.00-0.056)
[2017-11-09 15:42] LABS: MAGNESIUM 2.2 mg/dL (1.8-2.4); PHOSPHORUS 3.8 mg/dL (2.5-4.9)
[2017-11-09] MEDS ORDERED: CEFEPIME 1 GM in IV D5W 50 ML IV ONE (16:30)
[2017-11-09] MEDS ORDERED: VANCOMYCIN 1 GM in IV D5W 250 ML IV ONE (16:30)
[2017-11-09] MEDS ORDERED: FURO40TA5 PO (16:40)
[2017-11-09] MEDS ORDERED: CALC667C6 PO (16:40)
[2017-11-09] MEDS ORDERED: INSU100V3 SQ (16:45)
[2017-11-09 16:53] LABS: ABG BASE EXCESS 2.6 mmol/L; ABG OXYGEN SATURATION 95.9 % (92.0-98.5); ABG PCO2 61.2 mmHg (35.0-45.0); ABG PH 7.304 (7.350-7.450); ABG PO2 87.7 mmHg (75.0-100.0); AaDO2 127.1 mmHg; COHb 1.2 % (0.5-1.5); MetHb 0.4 % (0.0-1.5); O2Hb 94.4 % (94.0-97.0); PEEP,BG 5 cm H2O; SITE, ABG Left Radial; VENT MODE, BG ST 20/5 40%
--- NOTE | 2017-11-09 18:12 | NUR ---
RT PT STILL REMAINS ON BIPAP. SKIN INTEGRITY CHECKED, NO SIGNS OF REDNESS AND SKIN STILL INTACT. NO RESPIRATORY DISTRESS NOTED AT THIS TIME, WILL CONTINUE TO MONITOR. Addendum: 11/09/17 at 1814 by FATUMA LIRIANO RT Amended: Links added.
[2017-11-09 18:17] LABS: APPEARANCE,URINE Clear (CLEAR); BILIRUBIN,URINE Negative (NEGATIVE); BLOOD, URINE Moderate Ery/uL (NEGATIVE); COLOR,URINE Yellow (YELLOW); KETONES,URINE Negative (NEGATIVE); LEUKOCYTE ESTERASE ,URINE Large (NEGATIVE); NITRITE, URINE Negative (NEGATIVE); PH,URINE 8.5 (5.0-8.0); PROTEIN,URINE >=300 mg/dl (NEGATIVE); UGLUCOSE Negative (NEGATIVE); UROBILINOGEN,URINE 0.2 EU/dL (0.2)
[2017-11-09 18:22] LABS: BACTERIA,URINE 2+ /HPF (None Seen); SQUAMOUS EPITHELIAL CELL,UR Few /HPF (None Seen); WBC,URINE 51-80 /HPF (0-3)
[2017-11-09] MEDS ORDERED: INSULIN REGULAR, HUMAN 100 UNIT/ML 3 ML VIAL SQ PRN (19:00)
[2017-11-09] MEDS ORDERED: VANCOMYCIN 1 GM in IV NS 0.9% 250 ML IV PRN (19:00)
[2017-11-09] MEDS ORDERED: ONDANSETRON HCL/PF 4 MG/2 ML VIAL IVP PRN (19:00)
[2017-11-09] MEDS ORDERED: ACETAMINOPHEN 325 MG TABLET PO PRN (19:00)
[2017-11-09] MEDS ORDERED: GUAIFENESIN LA 600 MG TABLET.SA PO PRN (19:00)
[2017-11-09] MEDS ORDERED: DEXTROSE 50%-WATER 50 ML DISP.SYRIN IV PRN (19:00)
[2017-11-09] MEDS ORDERED: NORMAL SALINE FLUSH 10 ML SYR IV PRN (19:00)
[2017-11-09] MEDS ORDERED: ACETYLCYSTEINE 10% SOLN 400 MG/4 ML VIAL NEB PRN (19:00)
[2017-11-09] MEDS ORDERED: hydrALAZINE HCL IV 20 MG VIAL IV PRN (19:00)
--- NOTE | 2017-11-09 19:29 | NUR ---
REPORT FIVEN TO JOSE ALEJANDRO LLANOS FOR ICU ROOM 262.
[2017-11-09] MEDS ORDERED: FEE PK DOSING 1 MIN EA MC ONE (19:39)
[2017-11-09] MEDS: CEFEPIME 1 GM in IV D5W 50 ML IV SCH (20:00)
--- NOTE | 2017-11-09 20:00 | NUR ---
AUTOMOTIVE WINDOW TINTER NOTES AT 1940 RECEIVED PATIENT FROM ED VIA [employer] ALERT ORIENTED TO NAME WITH O2 NC. TRANSFERRED TO BED AND MADE COMFORTABLE.CONNECTED TO BIPAP BY POONAM ARNOLD 20/5,16, FIO2 40%.RESPIRATION EVEN AND UNLABORED.TEMP 98.2/AX,AFIB 70'S WITH OCCASIONAL PVC'S AND V-PACED BEATS.INITIAL ADMISSION ASSESSMENT DONE.SAFETY PRECAUTION IMPLEMENTED.CALL LIGHT AT BS WITHIN EASY REACH.BED LOW LOCKED AND EXIT ALARM ON. CONTINUE MONITORING.
[2017-11-09] MEDS ORDERED: CEFEPIME 1 GM VIAL IM SCH (21:00)
[2017-11-09] MEDS ORDERED: HEPARIN SODIUM, PORCINE 5000 UNITS/1 ML VIAL SQ SCH (21:00)
[2017-11-09] MEDS: ALBUTEROL FS 2.5 MG/3 ML VIAL.NEB NEB SCH (21:28)
[2017-11-09] MEDS: IPRATROPIUM NEB FS 0.5 MG/2.5 ML AMPUL.NEB NEB SCH (21:28)
[2017-11-09] MEDS: BLOOD SUGAR DIAGNOSTIC 1 EACH STRIP IN SCH (21:39)
[2017-11-09] MEDS: NORMAL SALINE FLUSH 10 ML SYR IV SCH (21:40)
--- NOTE | 2017-11-09 21:41 | NUR ---
MARKET DEVELOPMENT SPECIALIST NOTES MAXIPIME IVPB ANTIBIOTIC NOT ADMINISTERED AT THIS TIME.PATIENT RECEIVED DOSE IN ED AT 1630.
[2017-11-09] MEDS ORDERED: IV NS 0.9% 500 ML IV ONE (22:00)
--- NOTE | 2017-11-09 22:00 | NUR ---
PATIENT WITH UNSTABLE BP.SBP'S ON LOW 80'S.SPECIMEN TRANSPORTER,SELENA VIVEROS NOTIFIED WITH ORDERS RECEIVED. NS 500 ML BOLUS X 1 ADMINISTERED.WILL CONTINUE TO MONITOR.
[2017-11-10] VITALS (46 sets, daily range): BP systolic 65–118; BP diastolic 30–75
[2017-11-10] MEDS: BLOOD SUGAR DIAGNOSTIC 1 EACH STRIP IN SCH ×6 (00:58→21:00)
[2017-11-10] MEDS: ALBUTEROL FS 2.5 MG/3 ML VIAL.NEB NEB SCH ×6 (01:12→23:42)
[2017-11-10] MEDS: IPRATROPIUM NEB FS 0.5 MG/2.5 ML AMPUL.NEB NEB SCH ×7 (01:12→23:39)
[2017-11-10 04:20] LABS: BASOPHILS % (AUTO) 0.6 % (0.0-2.0); EOSINOPHILS % (AUTO) 1.2 % (0.0-6.0); HEMATOCRIT 24 % (33-45); HEMOGLOBIN 7.6 g/dL (11.5-14.8); LYMPHOCYTES # (AUTO) 0.8 /CMM (0.8-4.8); MEAN CORPUSCULAR HGB CONC 32 g/dl (31.0-36.0); MEAN CORPUSCULAR VOLUME 99 fL (82-100); MONOCYTES # (AUTO) 0.5 /CMM (0.1-1.30); MONOCYTES % (AUTO) 12.8 % (2.0-12.0); NEUTROPHILS # (AUTO) 2.4 /CMM (1.8-8.9); NEUTROPHILS % (AUTO) 64.4 % (43.0-81.0); PLATELET COUNT (AUTO) 179 /CMM (150-450); RDW COEFFICIENT OF VARIATION 16.2 (11.5-15.0); WHITE BLOOD COUNT (AUTO) 3.7 K/uL (4.3-11.0)
[2017-11-10 04:29] LABS: INR 1.09 (0.87-1.13)
[2017-11-10 04:49] LABS: ALANINE AMINOTRANSFERASE 10 U/L (12-78); ALBUMIN 2.6 g/dL (3.4-5.0); ALKALINE PHOSPHATASE 70 U/L (46-116); ASPARTATE AMINOTRANSFERASE 10 U/L (15-37); B-TYPE NATRIURETIC PEPTIDE 23441 PG/ML (0-125); BILIRUBIN,TOTAL 0.4 mg/dL (0.2-1.0); CALCIUM, SERUM 8.7 mg/dL (8.5-10.1); CARBON DIOXIDE 29 mmol/L (21-32); CHLORIDE 102 mmol/L (98-107); CREATININE 4.5 mg/dL (0.6-1.3); GLUCOSE 72 mg/dL (74-106); MAGNESIUM 2.2 mg/dL (1.8-2.4); PHOSPHORUS 3.6 mg/dL (2.5-4.9); POTASSIUM 4.8 mmol/L (3.5-5.1); SODIUM SERUM 137 mmol/L (136-145); TOTAL PROTEIN, SERUM 6.5 g/dL (6.4-8.2); UREA NITROGEN, BLOOD 25 mg/dL (7-18)
[2017-11-10] MEDS: NORMAL SALINE FLUSH 10 ML SYR IV SCH ×3 (04:57→20:37)
--- NOTE | 2017-11-10 06:00 | NUR ---
PATIENT AM CARE DONE.VS STABLE.REMAINS AFIB WITH PVC'S AND WITH OCCASIONAL V-PACED BEATS. TOLERATING BIPAP.DENIES PAIN.BP NORMALIZING.FSBS DONE Q 4 HRS WITH RESULTS WNL.TURNED AND REPOSITIONED.PATIENT NEEDS SWALLOW EVAL WILL ENDORSE TO INCOMING AM SHIFT RN FOR BURT.
[2017-11-10 07:36] LABS: TROPONIN I < 0.017 ng/mL (0.00-0.056)
[2017-11-10 07:39] LABS: IRON, SERUM 29 ug/dl (50-175); TOTAL IRON BINDING CAPACITY 146 ug/dl (250-450)
--- NOTE | 2017-11-10 08:05 | NUR ---
RN NOTES RECEIVED PT FROM SALES ACCOUNT LEADER ON BIPAP. PT PLACED ON 3L NC BY RT SATING WELL 92-94%. A&0X3 PRIMARILY SLOVAK SPEAKING. A FIB ON THE BEDSIDE MONITOR HR 88. LAC 20G, R CHEST 20G IVS INTACT. BED LOCKED AND IN LOWEST POSITION, CALL LIGHT WITHIN REACH, SIDE RAILS UPX3, WILL CONT TO LINN.
[2017-11-10 08:11] LABS: FERRITIN 1325 ng/mL (8-388)
[2017-11-10] MEDS ORDERED: NITROGLYCERIN 30 GM TUBE TP SCH (09:00)
[2017-11-10] MEDS ORDERED: FUROSEMIDE 40 MG TABLET PO SCH (09:00)
[2017-11-10] MEDS: ATORVASTATIN 10 MG TABLET PO SCH (09:07)
[2017-11-10] MEDS: PANTOPRAZOLE 40 MG VIAL IV SCH (09:07)
[2017-11-10] MEDS: FOLIC ACID 1 MG TABLET PO SCH (09:07)
[2017-11-10 09:27] LABS: ABG BASE EXCESS 2.5 mmol/L; ABG OXYGEN SATURATION 89.7 % (92.0-98.5); ABG PCO2 58.8 mmHg (35.0-45.0); ABG PH 7.316 (7.350-7.450); ABG PO2 62.6 mmHg (75.0-100.0); AaDO2 82.2 mmHg; COHb 1.1 % (0.5-1.5); MetHb 0.4 % (0.0-1.5); O2Hb 88.4 % (94.0-97.0); SITE, ABG Left Radial; VENT MODE, BG NC 3L
--- NOTE | 2017-11-10 10:15 | NUR ---
WOUND CARE CONSULT: PT PRESENTS WITH MULTIPLE SKIN ISSUES, PRESENT ON ADMISSION INCLUDING SACROCOCCYX STAGE 2 ULCER, RASH TO PERINEUM, INNER THIGHS AND INNER BUTTOCKS AND DRY RAISED LESION TO RT CHEEK. DEFER TO MD FOR RT CHEEK LESION. ALL SKIN PROTECTION MEASURES IN PLACE. ALL SKIN CARE AND WOUND RECOMMENDATIONS DISCUSSED WITH NURSING STAFF. FIRST STEP MATTRESS ORDERED. WILL SEE PRN. MD IN AGREEMENT WITH PLAN OF CARE. Addendum: 11/10/17 at 1017 by LORENA VÁSQUEZ WNDNU Amended: Links added.
[2017-11-10] MEDS: CLOTRIMAZOLE 1% 15 GM TUBE TP SCH ×2 (10:30→17:33)
[2017-11-10] MEDS ORDERED: HYDROGEL DRESSING 90 GM TUBE TP PRN (10:30)
[2017-11-10] MEDS ORDERED: Z GUARD REMEDY 2 OZ OINT TP PRN (10:30)
[2017-11-10] MEDS ORDERED: HYDROGEL DRESSING 90 GM TUBE TP SCH (10:30)
--- NOTE | 2017-11-10 11:07 | NUR ---
RT NOTE PT TAKEN OFF BIPAP PLACED ON NC AT 3L. PT AWAKE AND ALERT. ABG DONE AND RESULTS SHOWN TO MD THORNTON. NO DISTRESS NOTED AT MOMENT WILL CONTINUE TO MONITOR.
[2017-11-10] MEDS: Z GUARD REMEDY 2 OZ OINT TP SCH (11:33)
[2017-11-10] MEDS: APIXABAN 2.5 MG TABLET PO SCH ×2 (11:33→17:32)
[2017-11-10] MEDS ORDERED: EPOETIN ALFA (10,000 UNIT) 10,000 UNIT/ML VIAL IV ONE (15:00)
--- NOTE | 2017-11-10 15:38 | NUR ---
Patient speaks Romansh, was recently discharged to SNF and readmitted within 7days. Patient currently resides at [facility] [phone]. Patient requires max assist with adl's. Daughter Tammy is her primary source of support. Current plan is to dc back to SNF when discharge. Addendum: 11/10/17 at 1539 by LAUREN GUERRERO RN Amended: Links added.
[2017-11-10] MEDS ORDERED: VANCOMYCIN 1 GM in IV D5W 250 ML IV ONE (17:00)
--- NOTE | 2017-11-10 18:28 | NUR ---
RN NOTES PT REMAINED IN STABLE CONDITION THROUGHOUT THE SHIFT, ALL NEEDS MET. NO SIGNIFICANT CHANGES NOTED, TOLERATING NC SATING WELL. WILL ENDORSE TO ONCOMING SHIFT.
[2017-11-10] MEDS ORDERED: IV NS 0.9% 250 ML IV ONE (19:00)
--- NOTE | 2017-11-10 19:10 | NUR ---
WILDERNESS GUIDE INITIAL NOTES RECEIVED REPORT FROM DAY SHIFT NURSE CRYSTAL. RECEIVED PATIENT IN BED, AWAKE, ALERT AND ORIENTED X2. BREATHING EVEN AND NONLABORED AT THIS TIME, PERIODS OF DESATURATION DUE TO SLEEP APNEA, PERIODS OF APNEA DURING NAPS. PER REPORT, PATIENT WITH ANOTHER EPISODE OF LOW BP, CURRENTLY INITIATED ON 250 NS BOLUS X1 OVER 1 HOUR. WILL MONITOR BP. IV SITES PATENT AND INTACT, FLUSHED WITH NS, FREE FROM ANY S/S OF INFILTRATION OR PHLEBITIS. RIGHT CHEST WALL HD CATH DRESSING CLEAN AND DRY. CALL LIGHT LEFT WITHIN EASY REACH, BED IN LOWEST AND LOCKED POSITION. WILL CONTINUE TO CLOSELY MONITOR THE PATIENT
[2017-11-10] MEDS: CEFEPIME 1 GM in IV D5W 50 ML IV SCH (20:36)
[2017-11-10] MEDS ORDERED: DEXTROSE 50%-WATER 50 ML DISP.SYRIN IV PRN (23:00)
--- NOTE | 2017-11-10 23:02 | NUR ---
SALES MARKETING NOTES LATEST BLOOD SUGAR 121, NO COVERAGE PER SLIDING SCALE. BLOOD SUGAR TREND OVER LAST 24 HOURS 70-121, NO COVERAGE GIVEN, CURRENT ORDERS FOR Q4H ACCUCHECKS. PATIENT IS EATING PO. SPOKE TO NETWORK MANAGEMENT SPECIALIST SELENA VIVEROS, OBTAINED ORDER TO DC Q4H ACCUCHECKS, AND CHANGE TO ACHS WITH MILD SCALE SSI. ORDERS READ BACK FOR CLARIFICATION, NOTED, WILL CARRY OUT ALL NEW ORDERS
--- NOTE | 2017-11-10 23:30 | NUR ---
SUPERVISOR BOATBUILDERS WOOD NOTES - BIPAP PATIENT PLACED ON NOCTURNAL BIPAP BY RT CAROLYNN, RATE 14, 15/5, FIO2 40%, TOLERATING WELL, WILL CONTINUE TO CLOSELY MONITOR
[2017-11-11] VITALS (18 sets, daily range): BP systolic 81–105; BP diastolic 35–69
--- NOTE | 2017-11-11 03:30 | NUR ---
BILL CLERK NOTES PATIENT TAKEN OFF BIPAP PER REQUEST, PLACED ON O2 VIA NC @ 3LPM, TOLERATING WELL, FREE FROM ANY S/S OF RESPIRATORY DISTRESS. WILL CONTINUE TO CLOSELY MONITOR
[2017-11-11] MEDS: IPRATROPIUM NEB FS 0.5 MG/2.5 ML AMPUL.NEB NEB SCH ×6 (04:18→23:30)
[2017-11-11] MEDS: ALBUTEROL FS 2.5 MG/3 ML VIAL.NEB NEB SCH ×6 (04:18→23:30)
[2017-11-11 04:39] LABS: BASOPHILS % (AUTO) 0.6 % (0.0-2.0); EOSINOPHILS % (AUTO) 1.8 % (0.0-6.0); HEMATOCRIT 22 % (33-45); HEMOGLOBIN 7.2 g/dL (11.5-14.8); LYMPHOCYTES # (AUTO) 0.7 /CMM (0.8-4.8); LYMPHOCYTES % (AUTO) 18.8 % (20.0-44.0); MEAN CORPUSCULAR HGB CONC 32 g/dl (31.0-36.0); MEAN CORPUSCULAR VOLUME 99 fL (82-100); MONOCYTES # (AUTO) 0.5 /CMM (0.1-1.30); MONOCYTES % (AUTO) 13.9 % (2.0-12.0); NEUTROPHILS # (AUTO) 2.5 /CMM (1.8-8.9); NEUTROPHILS % (AUTO) 64.9 % (43.0-81.0); PLATELET COUNT (AUTO) 166 /CMM (150-450); RDW COEFFICIENT OF VARIATION 16.5 (11.5-15.0); RED BLOOD CELL COUNT(AUTO) 2.27 MIL/uL (4.0-5.2); WHITE BLOOD COUNT (AUTO) 3.9 K/uL (4.3-11.0)
[2017-11-11 04:47] LABS: CALCIUM, SERUM 8.5 mg/dL (8.5-10.1); CARBON DIOXIDE 28 mmol/L (21-32); CHLORIDE 101 mmol/L (98-107); CREATININE 5.5 mg/dL (0.6-1.3); GLUCOSE 84 mg/dL (74-106); MAGNESIUM 2.3 mg/dL (1.8-2.4); PHOSPHORUS 4.1 mg/dL (2.5-4.9); SODIUM SERUM 136 mmol/L (136-145); UREA NITROGEN, BLOOD 33 mg/dL (7-18)
[2017-11-11] MEDS: NORMAL SALINE FLUSH 10 ML SYR IV SCH ×3 (04:51→20:48)
--- NOTE | 2017-11-11 05:20 | NUR ---
MACHINE PRESSER NOTES PATIENT TRANSFERRED TO [facility] 1ST FLOOR, ROOM 115-1, VIA ACLS PROTOCOL, VITAL SIGNS STABLE. PRIMARY NURSE YORDAN. ALL BELONGINGS, INCLUDING DENTURES SENT WITH PATIENT. DENTURES IN PATIENT'S MOUTH AT TIME OF TRANSFER.
--- NOTE | 2017-11-11 05:20 | NUR ---
[facility] RN NOTE RECIEVED PT FROM ICU NURSE LUCAS AT BED SIDE REPORT RECEIVED. PT IS A/O X 3, INDONESIAN SPEAKING. NO SOB NO DISTRESS OR DISCOMFORT NOTED. DENIES PAIN. ON 3L VIA N/C O2 SAT 96%. ON TELE A FIB CONTROLLED WITH OCCASSIONAL PVC HR IN 80-90'S. HD CATH ON RT UPPER CHEST INTACT AND RCS SL #20 G AND DIDI MIDLINE INTACT AND PATENT, NO S/S OF INFILTRATION NOTED. SIDE RAILS UP X 3 AND CALL LIGHT WITHIN REACH. CONTINUE TO MONITOR HER.
--- NOTE | 2017-11-11 06:27 | NUR ---
[facility] RN NOTE PT IN BED ASLEEP, AROUSABLE. NO DISTRESS OR DISCOMFORT NOTED. DENIES PAIN. ON TELE A FIB CONTROLLED. SIDE RAILS UP X 3 AND CALL L IGHT WITHIN REACH. VSS. WILL ENDORSE TO DAY SHIFT NURSE FOR CONTINUE TO CARE.
--- NOTE | 2017-11-11 07:24 | NUR ---
RN NOTES RECEIVED PT FROM DIPPER FISH, A&0X3, ON 3L NC SATING WELL NO SOB OR DISTRESS NOTED. A FIB ON THE TELE LINN HR 75. DIDI MDLINE INTACT WITH NO IVF. BED LOCKED AND IN LOWEST POSITION, CALL LIGHT WITHIN REACH, SIDE RAILS UPX3, WILL CONT TO LINN.
[2017-11-11] MEDS: BLOOD SUGAR DIAGNOSTIC 1 EACH STRIP IN SCH ×4 (07:46→21:57)
[2017-11-11] MEDS ORDERED: EPOETIN ALFA (10,000 UNIT) 10,000 UNIT/ML VIAL IV ONE (08:00)
[2017-11-11] MEDS: APIXABAN 2.5 MG TABLET PO SCH ×2 (08:24→17:33)
[2017-11-11] MEDS: FOLIC ACID 1 MG TABLET PO SCH (08:24)
[2017-11-11] MEDS: ATORVASTATIN 10 MG TABLET PO SCH (08:24)
[2017-11-11] MEDS: PANTOPRAZOLE 40 MG VIAL IV SCH (08:24)
[2017-11-11] MEDS: CLOTRIMAZOLE 1% 15 GM TUBE TP SCH ×2 (08:25→17:33)
[2017-11-11] MEDS: Z GUARD REMEDY 2 OZ OINT TP SCH (08:25)
[2017-11-11] MEDS ORDERED: ALBUMIN 25% 25 GM in PREMIX 1 EA IV ONE (16:00)
[2017-11-11] MEDS ORDERED: MAGNESIUM HYDROXIDE 30 ML UDC PO PRN (17:00)
[2017-11-11] MEDS: VANCOMYCIN 500 MG in IV D5W 100 ML IV PRN (18:18)
[2017-11-11] MEDS: CEFEPIME 1 GM in IV D5W 50 ML IV SCH (20:21)
[2017-11-12] VITALS (26 sets, daily range): BP systolic 83–145; BP diastolic 31–122
[2017-11-12] MEDS: ALBUTEROL FS 2.5 MG/3 ML VIAL.NEB NEB SCH ×6 (04:04→23:52)
[2017-11-12] MEDS: IPRATROPIUM NEB FS 0.5 MG/2.5 ML AMPUL.NEB NEB SCH ×6 (04:04→23:52)
[2017-11-12 06:24] LABS: BASOPHILS % (AUTO) 1.4 % (0.0-2.0); EOSINOPHILS % (AUTO) 1.7 % (0.0-6.0); HEMATOCRIT 23 % (33-45); HEMOGLOBIN 7.1 g/dL (11.5-14.8); LYMPHOCYTES # (AUTO) 0.6 /CMM (0.8-4.8); LYMPHOCYTES % (AUTO) 18.2 % (20.0-44.0); MEAN CORPUSCULAR HGB CONC 32 g/dl (31.0-36.0); MEAN CORPUSCULAR VOLUME 99 fL (82-100); MONOCYTES # (AUTO) 0.4 /CMM (0.1-1.30); MONOCYTES % (AUTO) 12.7 % (2.0-12.0); NEUTROPHILS # (AUTO) 2.3 /CMM (1.8-8.9); PLATELET COUNT (AUTO) 158 /CMM (150-450); RDW COEFFICIENT OF VARIATION 16.9 (11.5-15.0); RED BLOOD CELL COUNT(AUTO) 2.26 MIL/uL (4.0-5.2); WHITE BLOOD COUNT (AUTO) 3.4 K/uL (4.3-11.0)
[2017-11-12] MEDS: NORMAL SALINE FLUSH 10 ML SYR IV SCH ×3 (06:28→21:43)
[2017-11-12 06:44] LABS: ALANINE AMINOTRANSFERASE 10 U/L (12-78); ALBUMIN 2.9 g/dL (3.4-5.0); ALKALINE PHOSPHATASE 59 U/L (46-116); ASPARTATE AMINOTRANSFERASE 9 U/L (15-37); BILIRUBIN,TOTAL 0.4 mg/dL (0.2-1.0); CALCIUM, SERUM 8.5 mg/dL (8.5-10.1); CARBON DIOXIDE 29 mmol/L (21-32); CHLORIDE 103 mmol/L (98-107); CREATININE 3.9 mg/dL (0.6-1.3); GLUCOSE 92 mg/dL (74-106); MAGNESIUM 3.2 mg/dL (1.8-2.4); PHOSPHORUS 3.4 mg/dL (2.5-4.9); POTASSIUM 4.2 mmol/L (3.5-5.1); SODIUM SERUM 140 mmol/L (136-145); TOTAL PROTEIN, SERUM 6.8 g/dL (6.4-8.2); UREA NITROGEN, BLOOD 20 mg/dL (7-18)
[2017-11-12 07:01] LABS: FERRITIN 964 ng/mL (8-388)
--- NOTE | 2017-11-12 07:10 | NUR ---
ROOF BOLTER HELPER OPENING NOTES. PT RECEIVED SAMMARINESE/BELARUSIAN SPEAKING, TIRED BUT ALERT AND REPORTEDLY A&0X3 FROM SAMMARINESE SPEAKING NIGHT NURSE. PT TELE: A-FBIB 73 WITH PVCS. PT TOLERATING ROOM AIR WITHOUT OBVIOUS SOB, PT SAO2 93%, LUNGS WITH CRACKLES AND DIMINISHED CRACKLES. RT ABOUT TO START THERAPY. PT WITH MIDLINE AT L UA INTACT AND OPERATIONAL WITH TKO AND IVC AT R CW G#20 SALINE LOCKED. NAD AT R CW HD CATH. PT BED IN LOWEST LOCKED POSITION WITH HNADRAILSX4 AND CALL MARI WITHIN REACH. PT BRIEFED ON TODAY'S POC AND IS WITHOUT CONCERN OR COMPLAINT AT THIS TIME.
[2017-11-12 07:44] LABS: IRON, SERUM 21 ug/dl (50-175); TOTAL IRON BINDING CAPACITY 132 ug/dl (250-450)
[2017-11-12] MEDS: BLOOD SUGAR DIAGNOSTIC 1 EACH STRIP IN SCH ×4 (07:49→22:05)
[2017-11-12] MEDS: FOLIC ACID 1 MG TABLET PO SCH (08:41)
[2017-11-12] MEDS: ATORVASTATIN 10 MG TABLET PO SCH (08:41)
[2017-11-12] MEDS: PANTOPRAZOLE 40 MG VIAL IV SCH (08:41)
[2017-11-12] MEDS: APIXABAN 2.5 MG TABLET PO SCH ×2 (08:42→18:28)
[2017-11-12] MEDS: CLOTRIMAZOLE 1% 15 GM TUBE TP SCH ×2 (08:42→16:46)
[2017-11-12] MEDS: Z GUARD REMEDY 2 OZ OINT TP SCH (08:43)
--- NOTE | 2017-11-12 10:00 | NUR ---
ROUTER TENDER NOTES. PT LETHARGIC, MD NOEL NOTIFIED AND RV AT BEDSIDE. ABG ORDERED.
[2017-11-12 10:28] LABS: ABG BASE EXCESS 2.3 mmol/L; ABG OXYGEN SATURATION 93.5 % (92.0-98.5); ABG PCO2 63.9 mmHg (35.0-45.0); ABG PH 7.286 (7.350-7.450); ABG PO2 82.6 mmHg (75.0-100.0); AaDO2 78.1 mmHg; COHb 0.7 % (0.5-1.5); MetHb 0.6 % (0.0-1.5); O2Hb 92.3 % (94.0-97.0); SITE, ABG Left Brachial; VENT MODE, BG NASAL CANNULA
--- NOTE | 2017-11-12 10:30 | NUR ---
EXERCISE PLANNER NOTES. BERT UPDATED WITH ABG RESULTS.
--- NOTE | 2017-11-12 10:47 | NUR ---
PT. placed on bipap due to lethargic condition. BIPAP PARAMETERS BELOW ORDER: IPAP 15 EPAP 5 RATE 14 FIO2 30% Addendum: 11/12/17 at 1051 by PABLO ROME RT Amended: Links added.
[2017-11-12] MEDS: INSULIN REGULAR, HUMAN 100 UNIT/ML 3 ML VIAL SQ PRN (11:57)
--- NOTE | 2017-11-12 11:58 | NUR ---
LAND SURVEY TECHNICIAN NOTES. 1200 INSULIN, 2 UNITS FOR BGL 139 HELD R/T TO LETHARGY, BIPAP THERAPY AND LOW PO INTAKE.
--- NOTE | 2017-11-12 12:12 | NUR ---
OUTSIDE CUTTER HAND NOTES. PT WOUND CARE COMPLETED PER ORDER.
--- NOTE | 2017-11-12 17:00 | NUR ---
ADHESIVE BANDAGE MACHINE OPERATORLEVER OPERATOR NOTES. PT REMAINS ENGLISH/EAST TIMORESE SPEAKING A&0X3, TIRED BUT ALERT AND RESPONSIVE. PT TRANSFER PER BELL PERSON BERT. PT TELE: A-FBIB 74. PT WITH BI PAP, 15/5, 14, 30%, PT SAO2 96%. TRANSFERRED WITH NC AT 3LPM PER RT. PT WITH MIDLINE AT L UA INTACT AND OPERATIONAL WITH TKO AND IVC AT R CW G#20 SALINE LOCKED. NAD AT R CW HD CATH. PT BED IN LOWEST LOCKED POSITION WITH HNADRAILSX4. TRANS WITH RT AND RNX2. PT WITH ALL BELONGINGS AND CASETTE MEDICATIONS, BELONGING LIST RV WITH ICU NURSE AT BEDSIDE. ALL DAY [facility] NURSE DUTIES ATTENDED TO. PT LEFT WITHOUT CONCERN OR COMPLAINT.
--- NOTE | 2017-11-12 17:30 | NUR ---
RN NOTES. PT RECEIVED IN ROOM 257, JAPANESE SPEAKING, A&0X3, TELE: A-FBIB 80'S PT PLACED ON BIPAP PER MD ORDER ,L UA MIDLINE AND R CW IV SITE G 20 AND R CW HD CATH CLEAN ,DRY AND INTACT , BED IN LOWEST LOCKED POSITION , SR UP x3, CALL LIGHT WITHIN EASY REACH, CONTINUE TO MONITOR .
--- NOTE | 2017-11-12 18:50 | NUR ---
RN NOTES PT ON BIPAP, TOLERATING WELL, NO DISTRESS NOTED, WILL ENDOSE TO REAL TIME OPERATOR NURSE FOR BURT
--- NOTE | 2017-11-12 19:25 | NUR ---
PT RCVD ON BIPAP 15/, RATE 14, 30%, PS 10. BREATHING TX GIVEN PER MD'S ORDERED. NO ADVERSE REACTION NOTED. NO RESPIRATORY DISTRESS NOTED AT THIS TIME. SKIN INTACT, NO REDNESS. ROMI LAMA NOTIFIED.
[2017-11-12] MEDS: CEFEPIME 1 GM in IV D5W 50 ML IV SCH (21:55)
--- NOTE | 2017-11-12 22:34 | NUR ---
PROGRAMMING INTERN. INITIAL ASSESSMENT. RECEIVED THE PT REST ON THE BED. AWAKE, LETHARGIC. BIPAP ON. SETTINGS 15/5,RATE 14,FIO2 30%. SAT 98%. NO ACUTE DISTRESS NOTED. PLANNER SHOWING AFIB. CONTROLLED. IV RT SUBCLAVIAN HD CATH. LT UPPER ARM MID LINE. SALINE LOCK/ HOB ELEVATED. WILL CONTINUE TO MONITOR VITALS.
[2017-11-13] VITALS (77 sets, daily range): BP systolic 73–142; BP diastolic 22–89
[2017-11-13] MEDS ORDERED: NOREPINEPHRINE 4 MG/4 ML AMPUL IV ONE (00:33)
[2017-11-13] MEDS ORDERED: NOREPINEPHRINE 16 MG in IV D5W 500 ML IV PRN (01:00)
--- NOTE | 2017-11-13 02:58 | NUR ---
ROLL PLUGGER AM CARE, ORAL CARE, BED BATH GIVEN. LINEN CHANGED. REMAINING SAME BIPAP SETTING TOLERATED WELL. SAT 98%, NO ACUTE DISTRESS NOTED. ROCK WOOL APPLICATOR SHOWING AFIB CONTROLLED. IV LT UPPERARM MID LINE. LEVOPHED 2MCG/MIN. HOB ELEVATED. TURN AND REPOSITION Q2H. WILL CONTINUE TO MONITOR VITALS.
[2017-11-13] MEDS: ALBUTEROL FS 2.5 MG/3 ML VIAL.NEB NEB SCH ×6 (03:54→23:16)
[2017-11-13] MEDS: IPRATROPIUM NEB FS 0.5 MG/2.5 ML AMPUL.NEB NEB SCH ×6 (03:54→23:16)
[2017-11-13] MEDS: NORMAL SALINE FLUSH 10 ML SYR IV SCH ×3 (04:48→21:00)
[2017-11-13 04:56] LABS: BASOPHILS % (AUTO) 0.6 % (0.0-2.0); EOSINOPHILS % (AUTO) 2.3 % (0.0-6.0); HEMATOCRIT 26 % (33-45); HEMOGLOBIN 8.1 g/dL (11.5-14.8); LYMPHOCYTES # (AUTO) 0.7 /CMM (0.8-4.8); LYMPHOCYTES % (AUTO) 16.2 % (20.0-44.0); MEAN CORPUSCULAR HGB CONC 31 g/dl (31.0-36.0); MEAN CORPUSCULAR VOLUME 100 fL (82-100); MONOCYTES # (AUTO) 0.5 /CMM (0.1-1.30); MONOCYTES % (AUTO) 12.3 % (2.0-12.0); NEUTROPHILS # (AUTO) 2.9 /CMM (1.8-8.9); NEUTROPHILS % (AUTO) 68.6 % (43.0-81.0); PLATELET COUNT (AUTO) 158 /CMM (150-450); RDW COEFFICIENT OF VARIATION 17.4 (11.5-15.0); RED BLOOD CELL COUNT(AUTO) 2.58 MIL/uL (4.0-5.2); WHITE BLOOD COUNT (AUTO) 4.3 K/uL (4.3-11.0)
[2017-11-13] MEDS ORDERED: IV NS 0.9% 250 ML IV PRN (05:00)
[2017-11-13 05:14] LABS: CALCIUM, SERUM 8.6 mg/dL (8.5-10.1); CARBON DIOXIDE 30 mmol/L (21-32); CHLORIDE 102 mmol/L (98-107); GLUCOSE 100 mg/dL (74-106); MAGNESIUM 2.4 mg/dL (1.8-2.4); POTASSIUM 4.7 mmol/L (3.5-5.1); SODIUM SERUM 138 mmol/L (136-145); UREA NITROGEN, BLOOD 24 mg/dL (7-18)
--- NOTE | 2017-11-13 06:11 | NUR ---
DISPENSARY CLERK. AROUND 0500 LEVOPHED HELD. BLOOD PRESSURE 130/70. WILL CONTINUE TO MONITOR
--- NOTE | 2017-11-13 07:30 | NUR ---
CHORE TENDER INITIAL NOTES RECEIVED PATIENT IN BED, AOX3, TELUGU/TRISTANIAN SPEAKING, ON BIPAP, TOLERATING WELL, NO DISTRESS NOTED, ON TELE MONITORING SR, , R CHEST HD CATHETER, DIDI MIDLINE, CLEAN AND PATENT, BED IN LOW AND LOCKED POSITION CALL LIGHT WITHIN REACH, WILL CONTINUE TO MONITOR.
[2017-11-13] MEDS: BLOOD SUGAR DIAGNOSTIC 1 EACH STRIP IN SCH ×4 (07:54→23:24)
[2017-11-13] MEDS: FOLIC ACID 1 MG TABLET PO SCH (08:19)
[2017-11-13] MEDS: APIXABAN 2.5 MG TABLET PO SCH ×2 (08:19→17:14)
[2017-11-13] MEDS: ATORVASTATIN 10 MG TABLET PO SCH (08:19)
[2017-11-13] MEDS: PANTOPRAZOLE 40 MG VIAL IV SCH (08:19)
--- NOTE | 2017-11-13 08:30 | NUR ---
WASHER AND CAPPER MACHINE OPERATOR NOTES PATIENT OFF BIPAP AT THIS TIME, ON NC, TOLERATING WELL EATING BREAKFAST, NO SIGNS OF ASPIRATION. WILL CONTINUE TO MONITOR.
[2017-11-13 10:03] LABS: ABG BASE EXCESS 3.5 mmol/L; ABG OXYGEN SATURATION 91.3 % (92.0-98.5); ABG PCO2 58.8 mmHg (35.0-45.0); ABG PH 7.329 (7.350-7.450); ABG PO2 66.9 mmHg (75.0-100.0); AaDO2 92.5 mmHg; MetHb 0.5 % (0.0-1.5); O2Hb 90.8 % (94.0-97.0); SITE, ABG Left Radial; VENT MODE, BG N/C
[2017-11-13] MEDS: Z GUARD REMEDY 2 OZ OINT TP SCH (11:30)
--- NOTE | 2017-11-13 15:00 | NUR ---
RECORD RETRIEVAL SPECIALIST NOTES PATIENT OFF DIALYSIS NOW, STABLE, NO DISTRESS NOTED. WILL CONTINUE TO MONITOR.
[2017-11-13] MEDS: CLOTRIMAZOLE 1% 15 GM TUBE TP SCH ×2 (17:12→17:13)
--- NOTE | 2017-11-13 18:48 | NUR ---
PROFESSOR OF HISTORICAL THEOLOGY NOTES PATIENT LAYING IN BED, NO SIGNS OF DISTRESS, ALL NEEDS MET, PATIENT CLEANED AND REPOSITIONED, WILL ENDORSE TO BRUSH HOLDER ASSEMBLER FOR CONTINUITY OF CARE.
--- NOTE | 2017-11-13 20:25 | NUR ---
MANAGING MANAGER. INITIAL ASSESSMENT. RECEIVED THE PT REST ON THE BED. PT AWAKE, ALERT, FOLLOW COMMANDS. STRATEGIES ANALYST SHOWING AFIB. CONTROLLED.OXYGEN 3L VIA NASAL CANNULA. SAT 98%. NO ACUTE DISTRESS NOTED. IV LT UPPER ARM MID LINE SALINE LOCK. HOB ELEVATED. WILL CONTINUE TO MONITOR VITALS.
[2017-11-13] MEDS: CEFEPIME 1 GM in IV D5W 50 ML IV SCH (20:52)
--- NOTE | 2017-11-13 23:28 | NUR ---
PT PLACED ON BIPAP. RN NOTIFIED. CHANGED MASK TO UTN SMALL SIZE. ALARMS SET AND AUDIBLE. WILL CONTINUE TO MONITOR. Addendum: 11/13/17 at 2330 by ARI ALLISON RT Amended: Links added.
[2017-11-14] VITALS (25 sets, daily range): BP systolic 82–125; BP diastolic 37–65
[2017-11-14] MEDS: IPRATROPIUM NEB FS 0.5 MG/2.5 ML AMPUL.NEB NEB SCH ×6 (03:11→22:59)
[2017-11-14] MEDS: ALBUTEROL FS 2.5 MG/3 ML VIAL.NEB NEB SCH ×6 (03:11→22:59)
--- NOTE | 2017-11-14 03:29 | NUR ---
RATOPRINTER. AM CARE, ORAL CARE, BED BATH GIVEN. LINEN CHANGED, REMAINING SAME BIPAP SETTING TOLERATED WELL. SAT 99%, NO ACUTE DISTRESS NOTED. MELON PACKER SHOWING AFIB. CONTROLLED. IV LT UPPEER ARM MID LINE. TKO RUNNING. HOB ELEVATED, TURN AND REPOSITION Q2H. WILL CONTINUE TO MONITOR VITALS,
--- NOTE | 2017-11-14 04:56 | NUR ---
PT TAKEN OFF BIPAP. PLACED ON 4L NC. RN NOTIFIED. Addendum: 11/14/17 at 0457 by ARI ALLISON RT Amended: Links added.
[2017-11-14 04:58] LABS: BASOPHILS % (AUTO) 0.6 % (0.0-2.0); EOSINOPHILS % (AUTO) 2.7 % (0.0-6.0); HEMATOCRIT 25 % (33-45); HEMOGLOBIN 7.8 g/dL (11.5-14.8); LYMPHOCYTES # (AUTO) 0.7 /CMM (0.8-4.8); MEAN CORPUSCULAR HGB CONC 32 g/dl (31.0-36.0); MEAN CORPUSCULAR VOLUME 100 fL (82-100); MONOCYTES # (AUTO) 0.4 /CMM (0.1-1.30); MONOCYTES % (AUTO) 9.8 % (2.0-12.0); NEUTROPHILS # (AUTO) 3.1 /CMM (1.8-8.9); NEUTROPHILS % (AUTO) 71.9 % (43.0-81.0); PLATELET COUNT (AUTO) 165 /CMM (150-450); RDW COEFFICIENT OF VARIATION 16.7 (11.5-15.0); RED BLOOD CELL COUNT(AUTO) 2.47 MIL/uL (4.0-5.2); WHITE BLOOD COUNT (AUTO) 4.4 K/uL (4.3-11.0)
[2017-11-14] MEDS: NORMAL SALINE FLUSH 10 ML SYR IV SCH ×3 (05:07→21:20)
[2017-11-14 05:20] LABS: CALCIUM, SERUM 8.5 mg/dL (8.5-10.1); CARBON DIOXIDE 29 mmol/L (21-32); CHLORIDE 101 mmol/L (98-107); CREATININE 4.1 mg/dL (0.6-1.3); GLUCOSE 87 mg/dL (74-106); MAGNESIUM 2.2 mg/dL (1.8-2.4); PHOSPHORUS 3.3 mg/dL (2.5-4.9); POTASSIUM 4.4 mmol/L (3.5-5.1); SODIUM SERUM 137 mmol/L (136-145); UREA NITROGEN, BLOOD 18 mg/dL (7-18)
--- NOTE | 2017-11-14 07:00 | NUR ---
THERMOFORMING OPERATOR- INITIAL NOTE RECEIVED PT A/O X3. DENIES ANY PAIN OR DISCOMFORT. ON 4L NC, RESPIRATIONS EVEN AND UNLABORED, NO SOB OR DISTRESS PRESENT. BEDSIDE MONITOR REVEALS SINUS BRADYCARDIA WITH PACS. DIDI MIDLINE RUNNING NS @ TKO. WILL CONTINUE TO MONITOR.
[2017-11-14] MEDS: BLOOD SUGAR DIAGNOSTIC 1 EACH STRIP IN SCH ×4 (08:01→21:27)
[2017-11-14] MEDS: FOLIC ACID 1 MG TABLET PO SCH (08:15)
[2017-11-14] MEDS: PANTOPRAZOLE 40 MG VIAL IV SCH (08:15)
[2017-11-14] MEDS: ATORVASTATIN 10 MG TABLET PO SCH (08:15)
[2017-11-14] MEDS: APIXABAN 2.5 MG TABLET PO SCH ×2 (08:15→16:22)
[2017-11-14] MEDS: CLOTRIMAZOLE 1% 15 GM TUBE TP SCH ×2 (08:16→16:25)
[2017-11-14] MEDS: Z GUARD REMEDY 2 OZ OINT TP SCH (08:16)
[2017-11-14 08:47] LABS: CHOLESTEROL 124 mg/dL (<200); HDL CHOLESTEROL 77 mg/dL (40-60); LDL 42 mg/dL (0-99); TRIGLYCERIDES 66 mg/dL (30-150)
[2017-11-14] MEDS: VANCOMYCIN 500 MG in IV D5W 100 ML IV PRN (10:20)
--- NOTE | 2017-11-14 12:00 | NUR ---
FLUX TUBE ATTENDANT- PT TRANSFERRED TO ROOM 118-1 IN STABLE CONDITION. BEDSIDE REPORT GIVEN TO GABBY Clemente RN. CONTINUES ON 4L NC AND TOLERATING WELL. ALL BELONGINGS SENT WITH PT.
[2017-11-14] MEDS: INSULIN REGULAR, HUMAN 100 UNIT/ML 3 ML VIAL SQ PRN ×2 (16:30→21:38)
--- NOTE | 2017-11-14 18:40 | NUR ---
RN NOTES: Rec'd report from LOAD TEST MECHANICROMI Handy. Pt transferred via bed (ACLS protocol) to rm 118/1, [facility] status, accompanied by RN & PSYCHIATRIC MENTAL HEALTH NURSE. Pt oriented to new room. Pt is A/O x 3, not in any distress. On O2 at 4lpm/NC, placed on cont pulSe ox w/ 98% sats. Placed on telemonitor, Afib w/ HR 80 bpm. Has RCW HD cath in place. Has DIDI midline G18, flushing well, no s/sx of infection/infiltration. Belongings checked, pt currently wearing her dentures (upper/lower). Bed bath provided. Pt kept well rested. Needs attended. Bed kept low & in locked pos. Will endorse to PM RN for BURT. Dentures cleaned by PSYCHIATRIC MENTAL HEALTH NURSE & placed in the container at bedside.
--- NOTE | 2017-11-14 19:30 | NUR ---
RN TD NOTES, RECEIVED PATIENT IN BED, ALERT AND ORIENTED, ABLE TO COMMUNICATE NEEDS AND CONCERNS, BREATHING EVEN AND UNLABORED, NO SOB/ACUTE DISTRESS NOTED AT THIS ANTHONY, ON O2 ADM AT4LMP WITH 02 SAT LEVEL > 98%, NO C/O PAIN AT THIS TIME, DIDI MIDLINE INTACT AND PATENT, BED LOCKED AND IN LOWEST POSITION, CALL LIGHT W/I REACH, DRY AN CLEAN AT THIS TIME, AND WELL REPOSITIONED, WILL CONTINUE TO MONITOR CLOSELY.
[2017-11-14] MEDS: CEFEPIME 1 GM in IV D5W 50 ML IV SCH (20:12)
[2017-11-15] VITALS: BP 101/52
[2017-11-15] MEDS: IPRATROPIUM NEB FS 0.5 MG/2.5 ML AMPUL.NEB NEB SCH ×5 (03:15→20:16)
[2017-11-15] MEDS: ALBUTEROL FS 2.5 MG/3 ML VIAL.NEB NEB SCH ×5 (03:15→20:16)
[2017-11-15 04:00] VITALS: BP 105/51
[2017-11-15] MEDS: NORMAL SALINE FLUSH 10 ML SYR IV SCH ×3 (04:54→21:34)
[2017-11-15 06:22] LABS: BASOPHILS % (AUTO) 0.9 % (0.0-2.0); EOSINOPHILS % (AUTO) 2.7 % (0.0-6.0); HEMATOCRIT 24 % (33-45); HEMOGLOBIN 7.5 g/dL (11.5-14.8); LYMPHOCYTES # (AUTO) 0.6 /CMM (0.8-4.8); MEAN CORPUSCULAR HGB CONC 31 g/dl (31.0-36.0); MEAN CORPUSCULAR VOLUME 101 fL (82-100); MONOCYTES # (AUTO) 0.4 /CMM (0.1-1.30); NEUTROPHILS # (AUTO) 2.5 /CMM (1.8-8.9); NEUTROPHILS % (AUTO) 68.4 % (43.0-81.0); PLATELET COUNT (AUTO) 136 /CMM (150-450); RDW COEFFICIENT OF VARIATION 17.3 (11.5-15.0); RED BLOOD CELL COUNT(AUTO) 2.38 MIL/uL (4.0-5.2); WHITE BLOOD COUNT (AUTO) 3.6 K/uL (4.3-11.0)
[2017-11-15 06:37] LABS: CALCIUM, SERUM 8.9 mg/dL (8.5-10.1); CARBON DIOXIDE 28 mmol/L (21-32); CHLORIDE 100 mmol/L (98-107); CREATININE 5.3 mg/dL (0.6-1.3); GLUCOSE 86 mg/dL (74-106); MAGNESIUM 2.2 mg/dL (1.8-2.4); PHOSPHORUS 4.6 mg/dL (2.5-4.9); POTASSIUM 4.9 mmol/L (3.5-5.1); SODIUM SERUM 136 mmol/L (136-145); UREA NITROGEN, BLOOD 28 mg/dL (7-18)
--- NOTE | 2017-11-15 06:51 | NUR ---
RN TD NOTES, PATIENT IN BED, ALERT AND ORIENTED, ABLE TO COMMUNICATE NEEDS AND CONCERNS, BREATHING EVEN AND UNLABORED, NO SOB/ACUTE DISTRESS NOTED AT THIS ANTHONY, ON O2 ADM AT4LMP WITH 02 SAT LEVEL > 98%, NO C/O PAIN AT THIS TIME, NO SIGNIFICANT CHANGE OF CONDITION AT THROUGHOUT TE SHIFT, DIDI MIDLINE INTACT AND PATENT, BED LOCKED AND IN LOWEST POSITION, CALL LIGHT W/I REACH, DRY AN CLEAN AT THIS TIME, AND WELL REPOSITIONED, WILL ENDORSE CONTINUITY OF CARE TO ONCOMING NURSE.
[2017-11-15] MEDS: BLOOD SUGAR DIAGNOSTIC 1 EACH STRIP IN SCH ×4 (07:29→22:34)
[2017-11-15 08:00] VITALS: BP 117/58
[2017-11-15] MEDS: ATORVASTATIN 10 MG TABLET PO SCH (08:04)
[2017-11-15] MEDS: APIXABAN 2.5 MG TABLET PO SCH ×2 (08:04→16:16)
[2017-11-15] MEDS: PANTOPRAZOLE 40 MG VIAL IV SCH (08:04)
[2017-11-15] MEDS: Z GUARD REMEDY 2 OZ OINT TP SCH (08:05)
[2017-11-15] MEDS: FOLIC ACID 1 MG TABLET PO SCH (08:05)
[2017-11-15] MEDS: CLOTRIMAZOLE 1% 15 GM TUBE TP SCH ×2 (08:06→16:16)
[2017-11-15] MEDS ORDERED: ALBUMIN 25% 25 GM in PREMIX 1 EA IV ONE (09:30)
[2017-11-15] MEDS: INSULIN REGULAR, HUMAN 100 UNIT/ML 3 ML VIAL SQ PRN ×2 (11:32→21:34)
[2017-11-15 12:00] VITALS: BP 113/59
[2017-11-15 16:00] VITALS: BP 116/63
[2017-11-15] MEDS: CEFEPIME 1 GM in IV D5W 50 ML IV SCH (19:48)
[2017-11-15 20:00] VITALS: BP 94/30
--- NOTE | 2017-11-15 21:15 | NUR ---
ENDORSED CARE TO CORY LLANOS
--- NOTE | 2017-11-15 21:20 | NUR ---
RN TD NOTES, RECEIVED PATIENT FROM ROMI TEMPLE FOR CONTINUITY OF CARE, PATIENT STABLE, NO SOB/ACUTE DISTRESS NOTED AT THIS TIME, WILL CONTINUE TO MONITOR CLOSELY.
[2017-11-16] VITALS (13 sets, daily range): BP systolic 96–127; BP diastolic 44–79
[2017-11-16] MEDS: ALBUTEROL FS 2.5 MG/3 ML VIAL.NEB NEB SCH ×7 (00:14→23:41)
[2017-11-16] MEDS: IPRATROPIUM NEB FS 0.5 MG/2.5 ML AMPUL.NEB NEB SCH ×7 (00:14→23:41)
[2017-11-16] MEDS: NORMAL SALINE FLUSH 10 ML SYR IV SCH ×3 (05:11→21:22)
--- NOTE | 2017-11-16 06:19 | NUR ---
RT. PT PLACED ON BIPAP AT [facility] PER MD ORDERS WITH NOTED SETTING. PT TOLERATED SETTING WELL. NO SOB OR DISTRESS NOTED ON SHIFT. SKIN INTACT AND NO REDNESS. CONTINUE CURRENT CARE PLAN. Addendum: 11/16/17 at 0621 by CAROLYNN VIGIL RT Amended: Links added.
--- NOTE | 2017-11-16 06:56 | NUR ---
RN TD NOTES, PATIENT IN BED, ALERT AND ORIENTED, WATCHING TV ABLE TO COMMUNICATE NEEDS AND CONCERNS, BREATHING EVEN AND UNLABORED, NO SOB/ACUTE DISTRESS NOTED AT THIS ANTHONY, ON O2 ADM AT4LMP WITH 02 SAT LEVEL > 98%, NO C/O PAIN AT THIS TIME, DIDI MIDLINE INTACT AND PATENT, BED LOCKED AND IN LOWEST POSITION, CALL LIGHT W/I REACH, DRY AN CLEAN AT THIS TIME, NO BURT THROUGHOUT THE NIGHT, AND WELL REPOSITIONED, WILL ENDORSE CONTINUITY OF CARE TO ONCOMING SHIFT.
[2017-11-16] MEDS: BLOOD SUGAR DIAGNOSTIC 1 EACH STRIP IN SCH ×4 (07:29→22:00)
[2017-11-16] MEDS: APIXABAN 2.5 MG TABLET PO SCH ×2 (08:00→16:28)
[2017-11-16] MEDS: PANTOPRAZOLE 40 MG VIAL IV SCH (08:01)
[2017-11-16] MEDS: Z GUARD REMEDY 2 OZ OINT TP SCH (08:01)
[2017-11-16] MEDS: ATORVASTATIN 10 MG TABLET PO SCH (08:01)
[2017-11-16] MEDS: FOLIC ACID 1 MG TABLET PO SCH (08:01)
[2017-11-16] MEDS: CLOTRIMAZOLE 1% 15 GM TUBE TP SCH ×2 (08:06→16:29)
--- NOTE | 2017-11-16 11:00 | NUR ---
INTERNET MARKETING ANALYST NOTE PT STABLE RECEIVING DIALYSIS TODAY WILL CONTINUE TO MONIOR CLOSELY. SPO2 98% ON 3L NC. ALL SAFETY MEASURES IN PLACE.
[2017-11-16] MEDS: INSULIN REGULAR, HUMAN 100 UNIT/ML 3 ML VIAL SQ PRN ×2 (11:22→22:20)
[2017-11-16] MEDS: ALBUMIN 25% 25 GM in PREMIX 1 EA IV PRN (12:25)
--- NOTE | 2017-11-16 16:05 | NUR ---
BUSINESS SERVICES REPRESENTATIVE NOTE DAUGHTER AT BEDSIDE STATING PATIENT SEEMS CONFUSED AND TIRED. EXPLAINED TO DAUGHTER PATIENT HAD HD TODAY AND YESTERDAY. CALLED DR. NOEL REPORTED SPO2 94-96% ON 3L. HAD CRYSTAL RN TRANSLATE IN RWANDAN PATIENT A/O3. PT IS STABLE WILL CONTINUE TO MONITOR. WILL EDUCATION PT ON CO2 RETENTION AND IMPORTANCE OF WEARING NOCTURNAL BIPAP
[2017-11-16 16:44] LABS: ABG BASE EXCESS 0.4 mmol/L; ABG OXYGEN SATURATION 89.3 % (92.0-98.5); ABG PCO2 67.5 mmHg (35.0-45.0); ABG PH 7.242 (7.350-7.450); ABG PO2 65.4 mmHg (75.0-100.0); AaDO2 83.8 mmHg; COHb 0.1 % (0.5-1.5); MetHb 0.6 % (0.0-1.5); O2Hb 88.7 % (94.0-97.0); SITE, ABG Left Radial
--- NOTE | 2017-11-16 16:55 | NUR ---
PAINT FACTORY WORKER NOTE DR. NOEL ORDERED STAT ABG. POST ABG RESULT DR. NOEL NOTIFIED ORDERED PT TO BE PLACED ON BIPAP AND TRANSFERRED TO ICU. JUAN RT AWARE PT PLACED ON BIPAP PER DR. THORNTON ORDER. AWAITING TRANSFER DAUGHTER CALLED AND NOTIFIED.
--- NOTE | 2017-11-16 17:01 | NUR ---
POST ABG RESULTS PLACED PT ON BIPAP PER MD ORDERED SETTINGS. ROMI VEGA. Addendum: 11/16/17 at 1707 by MARY ANNE SORIANO RT Amended: Links added. Addendum: 11/16/17 at 1712 by MARY ANNE SORIANO RT SKIN INTACT AND NO REDNESS NOTED.
--- NOTE | 2017-11-16 17:54 | NUR ---
PAYMENT PROCESSOR NOTE AWAITING ROOM FOR ICU TRANSFER NURSING CLAY CARMAN AND MANAGER CAFE ZORAIDA AWARE OF TRANSFER. PT CURRENTLY ON BIPAP 15/5 RATE 14 O2 30% SPO2 94% HR 87. PT STABLE . ALL SAFETY MEASURES IN PLACE.
--- NOTE | 2017-11-16 18:59 | NUR ---
READING AIDE NOTE PT TRANSFERRED VIA GURNEY TO ICU NEPHEW AT BEDSIDE AWARE OF TRANSFER. REPORT GIVEN TO RYAN LLANOS. PT ON MONITOR DURING TRANSFER. PT TRANSFERRED WITH BELONGINGS / DENTURES/ MEDICATIONS AND CHART.
[2017-11-16 20:23] LABS: ABG BASE EXCESS 0.7 mmol/L; ABG OXYGEN SATURATION 89.5 % (92.0-98.5); ABG PCO2 54.9 mmHg (35.0-45.0); ABG PH 7.314 (7.350-7.450); AaDO2 87.4 mmHg; COHb 0.2 % (0.5-1.5); MetHb 0.6 % (0.0-1.5); O2Hb 88.8 % (94.0-97.0); SITE, ABG Left Radial
--- NOTE | 2017-11-16 20:27 | NUR ---
PT RECEIVED ON BIPAP 15, 14, 30%. PT IS AWAKE, BULGARIAN SPEAKING. NO RESP DISTRESS NOTED. ABG DONE. NOTIFIED ROMI HSU WITH THE RESULT. INCREASED FIO2 TO 40%. PT HAS UTN MASK SMALL, MEPEILIX IN PLACE. WILL CONTINUE TO MONITOR. Addendum: 11/16/17 at 2030 by ARI ALLISON RT Amended: Links added.
[2017-11-16] MEDS: CEFEPIME 1 GM in IV D5W 50 ML IV SCH (21:21)
--- NOTE | 2017-11-16 22:00 | NUR ---
MOMD TEACHER - REC'D PT. W/BIPAP MASK ON. PT.IS ATTEMPTING TO REMOVE IT ALONG W/HER EKG CABLES & O2 SENSOR. PT.IS GREEK SPEAKING & A DISTILLATION OPERATOR HELPER FROM [employer]. ASSISTED W/COMMUNICATION. PT. STILL ATTEMPTED TO DO HER OWN THING & KICK OFF BLANKETS & PILLOWS. AFEBRILE. PT. HAS A PACER TO LEFT UPPER C/W. PT.OCC. V-PACES, WITH UNDERLYING AFIB. SBP'S ARE WNL. PT'S DENTURES ARE ON BS TABLE & LABELED. (UPPERS & LOWERS). PT. IS OBESE W/GEN. EDEMA. LUE MID - LINE HAS 0.9%NS AT TKO FOR ABX'S. PT.IS OLIGURIC/DIALYSIS PT. DIAPERED. ALL PULSES PALPABLE X 4 EXT. MOVES ONLY BUE'S. HD CATH TO RT. C/W. BIPAP SETTINGS ARE I:E-15/5,30% WAS CHANGED TO 40% AFTER ABG WAS DONE. RESULTS ARE WNL. CRACKLES 7 RALES. CONT.POC.
[2017-11-17] VITALS (38 sets, daily range): BP systolic 96–162; BP diastolic 41–81
[2017-11-17] MEDS: IPRATROPIUM NEB FS 0.5 MG/2.5 ML AMPUL.NEB NEB SCH ×6 (03:13→23:55)
[2017-11-17] MEDS: ALBUTEROL FS 2.5 MG/3 ML VIAL.NEB NEB SCH ×6 (03:13→23:55)
[2017-11-17 04:46] LABS: BASOPHILS % (AUTO) 0.2 % (0.0-2.0); EOSINOPHILS % (AUTO) 2.3 % (0.0-6.0); HEMATOCRIT 23 % (33-45); HEMOGLOBIN 7.4 g/dL (11.5-14.8); LYMPHOCYTES # (AUTO) 0.9 /CMM (0.8-4.8); LYMPHOCYTES % (AUTO) 25.4 % (20.0-44.0); MEAN CORPUSCULAR HGB CONC 32 g/dl (31.0-36.0); MEAN CORPUSCULAR VOLUME 99 fL (82-100); MONOCYTES # (AUTO) 0.4 /CMM (0.1-1.30); MONOCYTES % (AUTO) 10.2 % (2.0-12.0); NEUTROPHILS # (AUTO) 2.3 /CMM (1.8-8.9); NEUTROPHILS % (AUTO) 61.9 % (43.0-81.0); PLATELET COUNT (AUTO) 137 /CMM (150-450); RED BLOOD CELL COUNT(AUTO) 2.34 MIL/uL (4.0-5.2); WHITE BLOOD COUNT (AUTO) 3.7 K/uL (4.3-11.0)
[2017-11-17] MEDS: NORMAL SALINE FLUSH 10 ML SYR IV SCH ×3 (05:00→21:57)
[2017-11-17 05:09] LABS: CALCIUM, SERUM 8.6 mg/dL (8.5-10.1); CARBON DIOXIDE 26 mmol/L (21-32); CHLORIDE 101 mmol/L (98-107); CREATININE 6.6 mg/dL (0.6-1.3); GLUCOSE 90 mg/dL (74-106); MAGNESIUM 2.2 mg/dL (1.8-2.4); PHOSPHORUS 4.2 mg/dL (2.5-4.9); POTASSIUM 4.9 mmol/L (3.5-5.1); SODIUM SERUM 136 mmol/L (136-145); UREA NITROGEN, BLOOD 37 mg/dL (7-18)
--- NOTE | 2017-11-17 06:50 | NUR ---
FUNERAL HOME ATTENDANT - PT. IS RESTING INTERMITTENTLY W/EYES CLOSED. EASILY AROUSABLE, BIPAP CONT. PT. DID HAVE BIPAP ON ALL NOC, DESPITE PT. ATTEMPTING TO REMOVE BIPAP FREQUENTLY. COMP. BEDBATH ADM. W/ORAL,BEVERLY & SKIN/WOUND CARE ADM. SACRAL DRSG APPLIED & LOTRISOME CREAM & ZGUARD APPLIED TO INNER THIGHS, BEVERLY AREA & BUTTOCKS. REPORT ENDORSED TO QUETA RN. CONT.POC.
--- NOTE | 2017-11-17 07:10 | NUR ---
RN INITIAL NOTES: Rec'd pt asleep on bed, not in any distress, on BIPAP. Pt is easily arousable, A/O x2-3. On telemonitor, AFib controlled. Has DIDI Midline, TKO and RCW HD cath in place - both has no s/sx of infection/infiltration noted. Provided comfort & safety measures. Bed kept low & in locked pos. Call light placed w/in reach. Will continue to monitor & attend pt needs.
[2017-11-17] MEDS: BLOOD SUGAR DIAGNOSTIC 1 EACH STRIP IN SCH ×4 (08:03→22:00)
[2017-11-17] MEDS: INSULIN REGULAR, HUMAN 100 UNIT/ML 3 ML VIAL SQ PRN ×4 (08:05→22:12)
--- NOTE | 2017-11-17 08:30 | NUR ---
RN NOTES: Pt seen & examined by Dr. Nelson. ABG results reviewed by him w/ orders to keep pt on NC/3lpm as tolerated. RT made aware.
[2017-11-17] MEDS: PANTOPRAZOLE 40 MG VIAL IV SCH (09:01)
[2017-11-17] MEDS: APIXABAN 2.5 MG TABLET PO SCH ×2 (09:01→17:27)
[2017-11-17] MEDS: FOLIC ACID 1 MG TABLET PO SCH (09:01)
[2017-11-17] MEDS: ATORVASTATIN 10 MG TABLET PO SCH (09:01)
[2017-11-17] MEDS: Z GUARD REMEDY 2 OZ OINT TP SCH (09:01)
[2017-11-17] MEDS: CLOTRIMAZOLE 1% 15 GM TUBE TP SCH ×2 (09:02→17:27)
--- NOTE | 2017-11-17 09:30 | NUR ---
RN NOTES: Pt seen & examined by Dr. Bell. Pt sched for HD today.
[2017-11-17 09:55] LABS: ABG BASE EXCESS -2.1 mmol/L; ABG OXYGEN SATURATION 90.9 % (92.0-98.5); ABG PH 7.298 (7.350-7.450); ABG PO2 68.5 mmHg (75.0-100.0); COHb 0.1 % (0.5-1.5); MetHb 0.4 % (0.0-1.5); O2Hb 90.4 % (94.0-97.0); SITE, ABG Left Radial; VENT MODE, BG NASAL CANNULA
[2017-11-17 15:34] LABS: ABG BASE EXCESS -1.7 mmol/L; ABG OXYGEN SATURATION 87.3 % (92.0-98.5); ABG PCO2 52.1 mmHg (35.0-45.0); ABG PH 7.299 (7.350-7.450); ABG PO2 59.9 mmHg (75.0-100.0); AaDO2 78.3 mmHg; COHb 0.1 % (0.5-1.5); MetHb 0.4 % (0.0-1.5); O2Hb 86.9 % (94.0-97.0); SITE, ABG Left Radial; VENT MODE, BG NASAL CANNULA
--- NOTE | 2017-11-17 18:52 | NUR ---
RN CLOSING NOTES: No acute changes noted w/in shift. Pt tolerated NC/3lpm, no SOB. On telemonitor, still AFib controlled. DIDI Midline, kept patent & intact w/ no s/sx of infection/infiltration, on TKO and RCW HD cath kept in place. HD tolerated well, no hypotension noted, 1.5L out per Dionne HD RN. Dtr at bedside. Latest ABG relayed to Dr. Nelson by RT w/ orders to keep NC/3lpm during days & BIPA at HS. Dtr & pt made aware. Kept well rested. Needs attended. Bed kept low & in locked pos. Call light placed w/in reach. Will endorse to PM RN for BURT.
--- NOTE | 2017-11-17 19:42 | NUR ---
PATIENT RECEIVED ON NASAL CANNULA. PATIENT IS AWAKE/ALERT. PLACED PATIENT ON BIPAP AT THIS TIME. MASK IS TIGHT AND SECURED. BIPAP PLUGGED INTO RED OUTLET. TX GIVEN, NO ADVERSE REACTIONS NOTED. ALARMS ON AND AUDIBLE. PATIENT STABLE AND TOLERATING WELL. WILL MONITOR CLOSELY. Addendum: 11/17/17 at 2220 by JACKELYN DE LA ROSA RT Amended: Links added.
[2017-11-18] VITALS (37 sets, daily range): BP systolic 72–151; BP diastolic 42–83
[2017-11-18] MEDS: IPRATROPIUM NEB FS 0.5 MG/2.5 ML AMPUL.NEB NEB SCH ×6 (03:20→23:21)
[2017-11-18] MEDS: ALBUTEROL FS 2.5 MG/3 ML VIAL.NEB NEB SCH ×6 (03:20→23:21)
[2017-11-18 04:27] LABS: BASOPHILS # (AUTO) 0.1 /CMM (0.0-0.2); BASOPHILS % (AUTO) 1.2 % (0.0-2.0); EOSINOPHILS % (AUTO) 2.3 % (0.0-6.0); HEMATOCRIT 25 % (33-45); LYMPHOCYTES # (AUTO) 0.7 /CMM (0.8-4.8); LYMPHOCYTES % (AUTO) 14.7 % (20.0-44.0); MEAN CORPUSCULAR HGB CONC 32 g/dl (31.0-36.0); MEAN CORPUSCULAR VOLUME 98 fL (82-100); MONOCYTES # (AUTO) 0.5 /CMM (0.1-1.30); NEUTROPHILS # (AUTO) 3.3 /CMM (1.8-8.9); NEUTROPHILS % (AUTO) 71.8 % (43.0-81.0); PLATELET COUNT (AUTO) 159 /CMM (150-450); RDW COEFFICIENT OF VARIATION 16.5 (11.5-15.0); RED BLOOD CELL COUNT(AUTO) 2.56 MIL/uL (4.0-5.2); WHITE BLOOD COUNT (AUTO) 4.6 K/uL (4.3-11.0)
[2017-11-18 04:48] LABS: CALCIUM, SERUM 9.1 mg/dL (8.5-10.1); CARBON DIOXIDE 27 mmol/L (21-32); CHLORIDE 101 mmol/L (98-107); CREATININE 7.4 mg/dL (0.6-1.3); GLUCOSE 90 mg/dL (74-106); MAGNESIUM 2.3 mg/dL (1.8-2.4); PHOSPHORUS 4.5 mg/dL (2.5-4.9); POTASSIUM 5.1 mmol/L (3.5-5.1); SODIUM SERUM 136 mmol/L (136-145); UREA NITROGEN, BLOOD 45 mg/dL (7-18)
[2017-11-18] MEDS: NORMAL SALINE FLUSH 10 ML SYR IV SCH ×3 (05:12→21:19)
--- NOTE | 2017-11-18 06:30 | NUR ---
ITEM PROCESSOR - REC'D PT. LAST NIGHT ON O2/3L/NC & WAS PLACED ON NOC BIPAP AT 19:45 PM. SETTINGS = I:E-15/5,40%,RATE OF 14. PT.ATTEMPTED TO TAKE OFF MASK SEVERAL TIMES. RN MONITORED PT. CLOSELY. ACCORDING TO DAYSHIFT X 2 DAYS IN A ROW, PT. IS COOPERATIVE DURING DAY & MORE CONFUSED AT NIGHT. DENISE LLANOS WAS [place] QUALITY SPECIALIST FOR PT. TMAX = 99.1 ORAL. CALL MARI AT BS. HEART MONITOR SHOWED CONTROLLED AFIB. SBP'S ARE LABILE. ALL PULSES PALPABLE, BLE'S WEAK. LUE MIDLINE-DL IS PATENT TO FLUSH. RT. C/W HD CATH IS CDI. SACRUM & INNER THIGHS,BUTTOCKS HAVE NOTABLE EXCORIATION. WOUND ORDERS ARE NOTED. PT.IS OLIGURIC/DIAPERED. COMP.BEDBATH DONE AT 4AM. PT.HAS A HIGH RENAL DIET & IS A FEEDER. CONT.POC.
--- NOTE | 2017-11-18 07:30 | NUR ---
ICU/RN: Pt received alert, oriented, restless, attempting to remove BiPAP mask and lines. Pt reoriented, and placed on O2 via 3L/min NC. DIDI ML patent, flushed. HD cath dressing C/D/I. A-fib 90-100's on monitor. Safety measures in place. Will cont to monitor pt status.
[2017-11-18] MEDS: BLOOD SUGAR DIAGNOSTIC 1 EACH STRIP IN SCH ×4 (08:06→21:22)
[2017-11-18] MEDS: Z GUARD REMEDY 2 OZ OINT TP SCH (08:07)
[2017-11-18] MEDS: CLOTRIMAZOLE 1% 15 GM TUBE TP SCH ×2 (08:08→17:35)
[2017-11-18] MEDS: FOLIC ACID 1 MG TABLET PO SCH (08:17)
[2017-11-18] MEDS: PANTOPRAZOLE 40 MG VIAL IV SCH (08:17)
[2017-11-18] MEDS: ATORVASTATIN 10 MG TABLET PO SCH (08:17)
[2017-11-18] MEDS: APIXABAN 2.5 MG TABLET PO SCH ×2 (08:17→17:34)
--- NOTE | 2017-11-18 09:00 | NUR ---
ICU/RN: Dr Nelson rounds; updated on pt status. ABG ordered; will obtain after ongoing HD is completed. aware.
[2017-11-18] MEDS ORDERED: EPOETIN ALFA (10,000 UNIT) 10,000 UNIT/ML VIAL SQ ONE (10:00)
--- NOTE | 2017-11-18 11:30 | NUR ---
ICU/RN: Dr Watson at bedside; updated on pt status. Discussed CPAP and need for compliance to POC with pt and family. Daughter and pt verbalized understanding. Off HD, VSS. 1500cc output.
[2017-11-18 12:11] LABS: ABG BASE EXCESS 3.6 mmol/L; ABG OXYGEN SATURATION 88.2 % (92.0-98.5); ABG PCO2 45.6 mmHg (35.0-45.0); ABG PH 7.416 (7.350-7.450); ABG PO2 56.2 mmHg (75.0-100.0); AaDO2 89.6 mmHg; COHb 0.2 % (0.5-1.5); MetHb 0.6 % (0.0-1.5); O2Hb 87.5 % (94.0-97.0); SITE, ABG Right Radial; VENT MODE, BG nasal cannula
--- NOTE | 2017-11-18 15:00 | NUR ---
ICU/RN: Bed bath, wound care rendered. Tolerated well.
--- NOTE | 2017-11-18 19:40 | NUR ---
ELECTROTYPE MOLDER. INITIAL ASSESSMENT. RECEIVED THE PT REST ON THE BED. AWAKE, ALERT, FOLLOW COMMANDS. CREDIT INVESTIGATOR SHOWING AFIB. IV LT UPPER ARM MID LINE, SALINE LOCK. OXYGEN 3L VIA NASAL CANNULA. SAT 98%, NO ACUTE DISTRESS NOTED. HOB ELEVATED. WILL CONTINUE TO MONITOR VITALS.
[2017-11-19] VITALS (58 sets, daily range): BP systolic 71–155; BP diastolic 37–98
--- NOTE | 2017-11-19 01:45 | NUR ---
CCIE. PT BACK FROM CT PT VITALS STABLE. WILL CONTINUE TO MONITOR.
--- NOTE | 2017-11-19 03:31 | NUR ---
HOP PICKER. AM CARE, ORAL CARE, BED BATH GIVEN. LINEN CHANGED. REMAINING SAME BIPAP SETTING TOLERATED WELL. SAT 98%. NO ACUTE DISTRESS NOTED. COMMERCIAL DRIVER SHOWING NSR. IV LT UPPER ARM MID LINE SALINE LOCK. HOB ELEVATED. TURN AND REPOSITION Q2H. WILL CONTINUE TO MONITOR VITALS.
[2017-11-19] MEDS: ALBUTEROL FS 2.5 MG/3 ML VIAL.NEB NEB SCH ×6 (03:34→23:47)
[2017-11-19] MEDS: IPRATROPIUM NEB FS 0.5 MG/2.5 ML AMPUL.NEB NEB SCH ×6 (03:34→23:47)
[2017-11-19 04:27] LABS: BASOPHILS # (AUTO) 0.1 /CMM (0.0-0.2); BASOPHILS % (AUTO) 2.2 % (0.0-2.0); HEMATOCRIT 23 % (33-45); HEMOGLOBIN 7.3 g/dL (11.5-14.8); LYMPHOCYTES # (AUTO) 0.5 /CMM (0.8-4.8); MEAN CORPUSCULAR HGB CONC 32 g/dl (31.0-36.0); MEAN CORPUSCULAR VOLUME 98 fL (82-100); MONOCYTES # (AUTO) 0.4 /CMM (0.1-1.30); MONOCYTES % (AUTO) 11.4 % (2.0-12.0); NEUTROPHILS # (AUTO) 2.2 /CMM (1.8-8.9); NEUTROPHILS % (AUTO) 69.4 % (43.0-81.0); PLATELET COUNT (AUTO) 143 /CMM (150-450); RDW COEFFICIENT OF VARIATION 16.5 (11.5-15.0); RED BLOOD CELL COUNT(AUTO) 2.34 MIL/uL (4.0-5.2); WHITE BLOOD COUNT (AUTO) 3.2 K/uL (4.3-11.0)
[2017-11-19 04:46] LABS: CALCIUM, SERUM 8.7 mg/dL (8.5-10.1); CARBON DIOXIDE 30 mmol/L (21-32); CHLORIDE 102 mmol/L (98-107); CREATININE 5.6 mg/dL (0.6-1.3); GLUCOSE 96 mg/dL (74-106); MAGNESIUM 2.2 mg/dL (1.8-2.4); PHOSPHORUS 4.1 mg/dL (2.5-4.9); POTASSIUM 4.1 mmol/L (3.5-5.1); SODIUM SERUM 139 mmol/L (136-145); UREA NITROGEN, BLOOD 31 mg/dL (7-18)
[2017-11-19] MEDS: NORMAL SALINE FLUSH 10 ML SYR IV SCH ×3 (05:38→21:48)
--- NOTE | 2017-11-19 08:00 | NUR ---
RN NOTE RECEIVED THE PT ON BED. LETHARGIC, OPENS EYES, NO VERBAL RESPONSE, FOLLOWS COMMANDS, ANIMAL CARE PROVIDER SHOWING AFIB. IV LT UPPER ARM MID LINE, SALINE LOCK. OXYGEN 3L VIA NASAL CANNULA. SAT 98%, NO ACUTE DISTRESS NOTED. HOB ELEVATED. WILL CONTINUE TO MONITOR PT.
[2017-11-19] MEDS: PANTOPRAZOLE 40 MG VIAL IV SCH (08:49)
[2017-11-19] MEDS: BLOOD SUGAR DIAGNOSTIC 1 EACH STRIP IN SCH ×4 (08:49→22:22)
[2017-11-19] MEDS: FOLIC ACID 1 MG TABLET PO SCH ×2 (08:50→09:00)
[2017-11-19] MEDS: ATORVASTATIN 10 MG TABLET PO SCH ×2 (08:50→09:00)
[2017-11-19] MEDS: Z GUARD REMEDY 2 OZ OINT TP SCH (08:50)
[2017-11-19] MEDS: APIXABAN 2.5 MG TABLET PO SCH ×2 (09:00→16:29)
--- NOTE | 2017-11-19 09:00 | NUR ---
RN NOTE MORNING MEDS AND BREAKFAST HELD DUE TO PT BEING LETHARGIC AND FOR ASPIRATION PRECAUTIONS. WILL FOLLOW UP WITH MD.
[2017-11-19 09:47] LABS: ABG BASE EXCESS 4.4 mmol/L; ABG OXYGEN SATURATION 90.1 % (92.0-98.5); ABG PCO2 51.3 mmHg (35.0-45.0); ABG PH 7.387 (7.350-7.450); ABG PO2 61.8 mmHg (75.0-100.0); AaDO2 77.3 mmHg; COHb 0.3 % (0.5-1.5); MetHb 0.9 % (0.0-1.5); SITE, ABG Left Radial; VENT MODE, BG NC 2L
--- NOTE | 2017-11-19 11:00 | NUR ---
RN NOTE PT STILL LETHARGIC, ABG WAS DONE, PT WAS PUT BACK TO BIPAP, WILL NOTIFY DR THORNTON, AND DR. NOEL.
[2017-11-19] MEDS: CLOTRIMAZOLE 1% 15 GM TUBE TP SCH ×2 (13:11→16:30)
[2017-11-19 15:07] LABS: INR 1.12 (0.87-1.13)
--- NOTE | 2017-11-19 16:00 | NUR ---
RN NOTE SPOKE WITH DR NOEL ABOUT PT MENTAL STATUS, LABS AND TEST WERE DONE AND ABOUT THE RESULTS. PT KEPT NPO, SHE ORDERED REPEAT CT OF HEAD AT 2100 AND IVF. VS REMAINED STABLE, WILL ENDORSE TO DOCTOR OF VETERINARY MEDICINE NURSE.
[2017-11-19 16:19] LABS: CALCIUM, SERUM 9.5 mg/dL (8.5-10.1); CARBON DIOXIDE 29 mmol/L (21-32); CHLORIDE 100 mmol/L (98-107); CREATININE 6.1 mg/dL (0.6-1.3); GLUCOSE 90 mg/dL (74-106); POTASSIUM 4.6 mmol/L (3.5-5.1); SODIUM SERUM 138 mmol/L (136-145); UREA NITROGEN, BLOOD 34 mg/dL (7-18)
[2017-11-19] MEDS ORDERED: IV D5/0.45 NACL 1,000 ML IV ONE (16:30)
[2017-11-19 16:55] LABS: BASOPHILS % (AUTO) 0.5 % (0.0-2.0); EOSINOPHILS % (AUTO) 0.8 % (0.0-6.0); HEMATOCRIT 29 % (33-45); HEMOGLOBIN 9.2 g/dL (11.5-14.8); LYMPHOCYTES # (AUTO) 0.7 /CMM (0.8-4.8); LYMPHOCYTES % (AUTO) 16.9 % (20.0-44.0); MEAN CORPUSCULAR HGB CONC 32 g/dl (31.0-36.0); MEAN CORPUSCULAR VOLUME 98 fL (82-100); MONOCYTES # (AUTO) 0.4 /CMM (0.1-1.30); NEUTROPHILS # (AUTO) 3.1 /CMM (1.8-8.9); NEUTROPHILS % (AUTO) 71.8 % (43.0-81.0); PLATELET COUNT (AUTO) 181 /CMM (150-450); RDW COEFFICIENT OF VARIATION 16.1 (11.5-15.0); RED BLOOD CELL COUNT(AUTO) 2.97 MIL/uL (4.0-5.2); WHITE BLOOD COUNT (AUTO) 4.3 K/uL (4.3-11.0)
--- NOTE | 2017-11-19 19:39 | NUR ---
STAFF READINESS OFFICER, INITIAL ASSESSMENT, RECEIVED THE PT REST ON THE BED. PT IS OBTUNDED. DOES NOT FOLLOW COMMANDS. OXYGEN 3L VIA NASAL CANNULA. SAT 97%. NO ACUTE DISTRESS NOTED. ROSEANNA LOWER AND UPPER EXTREMITY MILD WEAKNESS NOTED. PT IS LETHARGIC. EYES CLOSED. HEEL CEMENTER SHOWING AFIB. RATE AT THIS TIME 101. PT HAS LT CHEST WALL PACEMAKER NOT PACING. IV LT UPPER ARM MID LINE. IVF D51/2NS 40ML/H. HOB ELEVATED. WILL CONTINUE TO MONITOR VITALS.
--- NOTE | 2017-11-19 22:30 | NUR ---
TANK COOPER. SENT THE PT TO CT SCAN ,ACLS PROTOCOL.
--- NOTE | 2017-11-19 23:47 | NUR ---
RCVD PT ON 2L NC, PLACED PT ON BIPAP 15/5,RATE 14, 40% AT NIGHT PER MD'S ORDERED. PT TOLERATING THE BIPAP. BREATHING TX GIVEN , NO ADVERSE REACTION NOTED. NO RESPIRATORY DISTRESS NOTED AT THIS TIME. WILL CONTINUE TO MONITOR THE PT.
[2017-11-20] VITALS (62 sets, daily range): BP systolic 72–154; BP diastolic 31–92
[2017-11-20] MEDS: ALBUTEROL FS 2.5 MG/3 ML VIAL.NEB NEB SCH ×7 (03:43→23:58)
[2017-11-20] MEDS: IPRATROPIUM NEB FS 0.5 MG/2.5 ML AMPUL.NEB NEB SCH ×7 (03:43→23:58)
[2017-11-20 04:48] LABS: BASOPHILS % (AUTO) 1.1 % (0.0-2.0); EOSINOPHILS % (AUTO) 0.9 % (0.0-6.0); HEMATOCRIT 27 % (33-45); HEMOGLOBIN 8.5 g/dL (11.5-14.8); LYMPHOCYTES # (AUTO) 0.5 /CMM (0.8-4.8); MEAN CORPUSCULAR HGB CONC 32 g/dl (31.0-36.0); MEAN CORPUSCULAR VOLUME 98 fL (82-100); MONOCYTES # (AUTO) 0.5 /CMM (0.1-1.30); MONOCYTES % (AUTO) 10.4 % (2.0-12.0); NEUTROPHILS # (AUTO) 3.4 /CMM (1.8-8.9); NEUTROPHILS % (AUTO) 75.6 % (43.0-81.0); PLATELET COUNT (AUTO) 143 /CMM (150-450); RDW COEFFICIENT OF VARIATION 16.2 (11.5-15.0); RED BLOOD CELL COUNT(AUTO) 2.73 MIL/uL (4.0-5.2); WHITE BLOOD COUNT (AUTO) 4.5 K/uL (4.3-11.0)
[2017-11-20 05:05] LABS: CARBON DIOXIDE 28 mmol/L (21-32); CHLORIDE 101 mmol/L (98-107); CREATININE 6.6 mg/dL (0.6-1.3); GLUCOSE 89 mg/dL (74-106); MAGNESIUM 2.1 mg/dL (1.8-2.4); PHOSPHORUS 4.5 mg/dL (2.5-4.9); POTASSIUM 4.4 mmol/L (3.5-5.1); SODIUM SERUM 139 mmol/L (136-145); UREA NITROGEN, BLOOD 38 mg/dL (7-18)
[2017-11-20] MEDS: NORMAL SALINE FLUSH 10 ML SYR IV SCH ×3 (05:27→21:00)
--- NOTE | 2017-11-20 05:28 | NUR ---
PUBLICITY WRITER. AM CARE, ORAL CARE, BED BATH GIVEN. LINEN CHANGED, REMAINING SAME BIPAP SETTING TOLERATED WELL. SAT 98%. NO ACUTE DISTRESS NOTED. MANUFACTURING LEADER SHOWING AFIB, HOB ELEVATED. NPO. IV LT HAND MIDLINE IVF D51/2NS 40ML/H, HOB ELEVATED, TURN AND REPOSITION Q2H.WILL CONTINUE TO MONITOR VITALS.
[2017-11-20] MEDS: BLOOD SUGAR DIAGNOSTIC 1 EACH STRIP IN SCH ×4 (06:30→22:21)
--- NOTE | 2017-11-20 07:50 | NUR ---
ICU/RN PT IS ON THE BED ON BI-PAP. SAT O2-98%. ALOC ,RESPONSIVE ON PAIN STIMULATION ONLY.V/S STABLE,AFEBRILE.ANURIC.IV INFUSING ORDERED.
[2017-11-20] MEDS: PANTOPRAZOLE 40 MG VIAL IV SCH (08:16)
[2017-11-20] MEDS: ATORVASTATIN 10 MG TABLET PO SCH ×2 (08:20→16:30)
[2017-11-20] MEDS: APIXABAN 2.5 MG TABLET PO SCH ×2 (08:20→16:29)
[2017-11-20] MEDS: FOLIC ACID 1 MG TABLET PO SCH ×2 (08:20→16:29)
[2017-11-20] MEDS: Z GUARD REMEDY 2 OZ OINT TP SCH (08:21)
[2017-11-20] MEDS: CLOTRIMAZOLE 1% 15 GM TUBE TP SCH ×2 (08:22→16:31)
[2017-11-20] MEDS: ALBUMIN 25% 25 GM in PREMIX 1 EA IV PRN (08:56)
--- NOTE | 2017-11-20 09:00 | NUR ---
ICU/RN PT IS ALOC .NPO.UNABLE TO GIVE PO MEDICATIONS. NOTIFIED.
--- NOTE | 2017-11-20 12:00 | NUR ---
ICU/RN HD IS OVER.2.5L OUTPUT.PT STILL NON-RESPONSIVE.ON 3L N/C .SAT O2-96%.BP STABLE ,AFEBRILE.
--- NOTE | 2017-11-20 13:00 | NUR ---
ICU/RN PT SUDDENLY GET AWAKE,ALERT,ORIENTED-3.FAMILY AT BED SIDE.SWALLOW EVALUATION DONE .PT EATS 100% FROM HER MEAL TRAY HELPED WITH ASSISTANCE.FAMILY AT BEDSIDE.IV FLUIDS STOP.CONTINUE MONITORING.
--- NOTE | 2017-11-20 17:35 | NUR ---
ICU/RN PM CARE PROVIDED.DUE MEDS ARE GIVEN ORDERED. BS-118.WOUND DRESSING DONE ORDERED.PT IS AWAKE,ALERT.WATCHING TV.CONTINUE MONITORING.V/S STABLE,AFEBRILE.NO PAIN REPORTED AT THIS TIME.
--- NOTE | 2017-11-20 20:10 | NUR ---
TOWER FOREMAN. INITIAL ASSESSMENT. RECEIVED THE PT REST ON THE BED. PT AWAKE, ALERT, FOLLOW COMMANDS. ASSOCIATE DIRECTOR FINANCE SHOWING AFIB. IV LT HAND MID LINE SALINE LOCK. OXYGEN 3L VIA NASAL CANNULA SAT 98%. NO ACUTE DISTRESS NOTED. HOB ELEVATED. WILL CONTINUE TO MONITOR VITALS.
[2017-11-21] VITALS (28 sets, daily range): BP systolic 86–117; BP diastolic 43–85
[2017-11-21] MEDS: ALBUTEROL FS 2.5 MG/3 ML VIAL.NEB NEB SCH ×5 (04:26→20:04)
[2017-11-21] MEDS: IPRATROPIUM NEB FS 0.5 MG/2.5 ML AMPUL.NEB NEB SCH ×5 (04:26→20:04)
[2017-11-21 05:05] LABS: BASOPHILS % (AUTO) 0.9 % (0.0-2.0); EOSINOPHILS % (AUTO) 1.7 % (0.0-6.0); HEMATOCRIT 25 % (33-45); HEMOGLOBIN 7.9 g/dL (11.5-14.8); LYMPHOCYTES # (AUTO) 0.6 /CMM (0.8-4.8); LYMPHOCYTES % (AUTO) 15.7 % (20.0-44.0); MEAN CORPUSCULAR HGB CONC 32 g/dl (31.0-36.0); MEAN CORPUSCULAR VOLUME 99 fL (82-100); MONOCYTES # (AUTO) 0.4 /CMM (0.1-1.30); MONOCYTES % (AUTO) 10.7 % (2.0-12.0); NEUTROPHILS # (AUTO) 2.9 /CMM (1.8-8.9); PLATELET COUNT (AUTO) 181 /CMM (150-450); RDW COEFFICIENT OF VARIATION 16.3 (11.5-15.0); RED BLOOD CELL COUNT(AUTO) 2.54 MIL/uL (4.0-5.2); WHITE BLOOD COUNT (AUTO) 4.1 K/uL (4.3-11.0)
[2017-11-21 05:18] LABS: CALCIUM, SERUM 9.1 mg/dL (8.5-10.1); CARBON DIOXIDE 29 mmol/L (21-32); CHLORIDE 102 mmol/L (98-107); CREATININE 5.7 mg/dL (0.6-1.3); GLUCOSE 101 mg/dL (74-106); MAGNESIUM 2.1 mg/dL (1.8-2.4); PHOSPHORUS 3.4 mg/dL (2.5-4.9); POTASSIUM 4.5 mmol/L (3.5-5.1); SODIUM SERUM 139 mmol/L (136-145); UREA NITROGEN, BLOOD 32 mg/dL (7-18)
[2017-11-21] MEDS: NORMAL SALINE FLUSH 10 ML SYR IV SCH ×3 (05:38→21:20)
--- NOTE | 2017-11-21 07:12 | NUR ---
RN INITIAL NOTES: Rec'd pt asleep on bed, not in any distress, on NC/3lpm. Pt is easily arousable, A/O x3. On telemonitor, AFib controlled. Has DIDI Midline, SL and RCW HD cath in place - both has no s/sx of infection/infiltration noted. Provided comfort & safety measures. Bed kept low & in locked pos. Call light placed w/in reach. Will continue to monitor & attend pt needs.
[2017-11-21] MEDS: BLOOD SUGAR DIAGNOSTIC 1 EACH STRIP IN SCH ×4 (08:08→21:25)
[2017-11-21] MEDS: INSULIN REGULAR, HUMAN 100 UNIT/ML 3 ML VIAL SQ PRN ×3 (08:12→16:55)
[2017-11-21] MEDS: Z GUARD REMEDY 2 OZ OINT TP SCH (08:37)
[2017-11-21] MEDS: ATORVASTATIN 10 MG TABLET PO SCH (08:37)
[2017-11-21] MEDS: FOLIC ACID 1 MG TABLET PO SCH (08:37)
[2017-11-21] MEDS: CLOTRIMAZOLE 1% 15 GM TUBE TP SCH ×2 (08:38→16:25)
[2017-11-21] MEDS: APIXABAN 2.5 MG TABLET PO SCH ×2 (08:38→16:24)
[2017-11-21] MEDS: PANTOPRAZOLE 40 MG VIAL IV SCH (09:09)
--- NOTE | 2017-11-21 11:30 | NUR ---
RN NOTES: Pt seen & examined by Dr. Devine.
--- NOTE | 2017-11-21 12:10 | NUR ---
RN NOTES: Pt seen & examined by Dr. Bell.
--- NOTE | 2017-11-21 14:07 | NUR ---
RN NOTES: Pt seen & examined by Dr. Watson. Referred no BM, w/ orders may start on Colace 100 mg PO BID & Miralax PRN. Addendum: 11/21/17 at 1839 by GABBY QUINTANILLA RN Addendum: Per Dr. Watson, pt is safe to be downgraded to [facility], however, wanted to still keep pt here in ICU. CN made aware.
[2017-11-21] MEDS ORDERED: POLYETHYLENE GLYCOL 3350 17 GM POWD.PACK PO PRN (14:30)
[2017-11-21] MEDS: DOCUSATE SODIUM 100 MG CAPSULE PO SCH (16:24)
--- NOTE | 2017-11-21 18:40 | NUR ---
RN CLOSING NOTES: No acute changes noted w/in shift. Pt tolerated NC/3lpm, no SOB. On telemonitor, still AFib controlled. DIDI Midline, kept patent & intact w/ no s/sx of infection/infiltration. RCW HD cath kept in place, C/D/I. Pt turned & repositioned. Wound care done. Pt fed w/ strict aspiration precaution. Pt wearing her upper & lower dentures the whole shift. Kept well rested. Needs attended. Bed kept low & in locked pos. Call light placed w/in reach. Will endorse to PM RN for BURT.
--- NOTE | 2017-11-21 20:49 | NUR ---
received pt from day shift, a/o x3, follows commands, Afib controlled, on NC at 3L, sat well, lungs diminished, some edema, tolerates feeding, v/s stable, no pain, pt turned and repositioned.
[2017-11-22] VITALS (31 sets, daily range): BP systolic 79–120; BP diastolic 32–70
[2017-11-22] MEDS: IPRATROPIUM NEB FS 0.5 MG/2.5 ML AMPUL.NEB NEB SCH ×7 (00:20→23:56)
[2017-11-22] MEDS: ALBUTEROL FS 2.5 MG/3 ML VIAL.NEB NEB SCH ×7 (00:20→23:56)
--- NOTE | 2017-11-22 00:46 | NUR ---
pt is resting in the bed, on nocturnal bipap, sat well, v/s stable, no pain, pt turned and repositioned q2hrs.
--- NOTE | 2017-11-22 04:16 | NUR ---
pt is resting in the bed, no acute distress overnight, Afib, on bipap sat well, v/s stable, no pain, pt cleaned, changed and repositioned q2hrs.
[2017-11-22] MEDS: NORMAL SALINE FLUSH 10 ML SYR IV SCH ×3 (04:29→20:30)
[2017-11-22 04:51] LABS: BASOPHILS % (AUTO) 0.2 % (0.0-2.0); EOSINOPHILS % (AUTO) 1.5 % (0.0-6.0); HEMATOCRIT 24 % (33-45); HEMOGLOBIN 7.7 g/dL (11.5-14.8); LYMPHOCYTES # (AUTO) 0.8 /CMM (0.8-4.8); LYMPHOCYTES % (AUTO) 20.9 % (20.0-44.0); MEAN CORPUSCULAR HGB CONC 32 g/dl (31.0-36.0); MEAN CORPUSCULAR VOLUME 98 fL (82-100); MONOCYTES # (AUTO) 0.4 /CMM (0.1-1.30); MONOCYTES % (AUTO) 10.1 % (2.0-12.0); NEUTROPHILS # (AUTO) 2.5 /CMM (1.8-8.9); NEUTROPHILS % (AUTO) 67.3 % (43.0-81.0); PLATELET COUNT (AUTO) 184 /CMM (150-450); RDW COEFFICIENT OF VARIATION 16.3 (11.5-15.0); RED BLOOD CELL COUNT(AUTO) 2.46 MIL/uL (4.0-5.2); WHITE BLOOD COUNT (AUTO) 3.8 K/uL (4.3-11.0)
[2017-11-22 05:14] LABS: CALCIUM, SERUM 9.2 mg/dL (8.5-10.1); CARBON DIOXIDE 28 mmol/L (21-32); CHLORIDE 102 mmol/L (98-107); CREATININE 6.8 mg/dL (0.6-1.3); GLUCOSE 95 mg/dL (74-106); MAGNESIUM 2.1 mg/dL (1.8-2.4); PHOSPHORUS 4.2 mg/dL (2.5-4.9); POTASSIUM 4.4 mmol/L (3.5-5.1); SODIUM SERUM 139 mmol/L (136-145); UREA NITROGEN, BLOOD 42 mg/dL (7-18)
--- NOTE | 2017-11-22 07:31 | NUR ---
AWAKE AND ALERT PT RECEIVED ON BIPAP, PLACED INTO NASAL CANNULA @ 2LPM O2 FLOW. Addendum: 11/22/17 at 0732 by PABLO ROME RT Amended: Links added.
--- NOTE | 2017-11-22 07:45 | NUR ---
RN note: Initial Patient received alert awake oriented x3, On 2lpm O2 via NC, No breathing distress noted. BIPAP at night time tolerated well as per report. Denies pain/Discomfort. IV catheter & HD cath intact, dressing dry & clean. Safety measures observed. Call light within reach. Will continue to monitor.
[2017-11-22] MEDS: BLOOD SUGAR DIAGNOSTIC 1 EACH STRIP IN SCH ×4 (08:24→20:55)
[2017-11-22] MEDS: FOLIC ACID 1 MG TABLET PO SCH (08:25)
[2017-11-22] MEDS: DOCUSATE SODIUM 100 MG CAPSULE PO SCH ×2 (08:25→17:33)
[2017-11-22] MEDS: PANTOPRAZOLE 40 MG VIAL IV SCH (08:25)
[2017-11-22] MEDS: Z GUARD REMEDY 2 OZ OINT TP SCH (08:25)
[2017-11-22] MEDS: APIXABAN 2.5 MG TABLET PO SCH ×2 (08:25→17:33)
[2017-11-22] MEDS: ATORVASTATIN 10 MG TABLET PO SCH (08:25)
[2017-11-22] MEDS: CLOTRIMAZOLE 1% 15 GM TUBE TP SCH ×2 (08:26→17:34)
[2017-11-22] MEDS: INSULIN REGULAR, HUMAN 100 UNIT/ML 3 ML VIAL SQ PRN ×2 (12:59→20:56)
--- NOTE | 2017-11-22 18:31 | NUR ---
RN NOTE: TRANSFER TO [facility] PATIENT TRANSFERRED TO [facility] ALERT AWAKE ORIENTED X3. ON 2 LPM O2 VIA NC, NO BREATHING DIFFICULTY NOTED. DENIES PAIN/DISCOMFORT. TRANSFER WITH ALL BELONGINGS. DAUGHTER IS AWARE. REPORT GIVEN AT BEDSIDE TO ASSIGNED RN.
--- NOTE | 2017-11-22 19:57 | NUR ---
RN CLOSING NOTE PATIENT IN STABLE CONDITION AT THIS TIME CONTINUATION OF CARE ENDORSED TO PM RN, PATIENT REMAINS ALERT AND ORIENTED AT THIS TIME NO SOB OR DISTRESS NOTED
--- NOTE | 2017-11-22 23:14 | NUR ---
WIRE TURNING MACHINE OPERATOR; BEDSIDE REPORT GIVEN TO RN FOR CONTINUITY OF CARE. PT IS STABLE, COMFORTABLY SLEEPING, NO DISTRESS. V/S STABLE.
--- NOTE | 2017-11-22 23:15 | NUR ---
ALEX GARAY NOTES, ENDORSED PATIENT FROM SARA RN FOR CONTINUITY OF CARE, PATIENT IN BED AWAKE, ALERT AND ORIENTED, NO SOB/ACUTE DISTRESS NOTED AT THIS TIME, DRY AND CLEAN AND WELL REPOSITIONED, CALL LIGHT W/I REACH, WILL CONTINUE TO MONITOR CLOSELY.
[2017-11-23] VITALS: BP 101/40
[2017-11-23 04:00] VITALS: BP 110/52
[2017-11-23] MEDS: IPRATROPIUM NEB FS 0.5 MG/2.5 ML AMPUL.NEB NEB SCH ×5 (04:21→19:35)
[2017-11-23] MEDS: ALBUTEROL FS 2.5 MG/3 ML VIAL.NEB NEB SCH ×5 (04:21→19:35)
[2017-11-23] MEDS: NORMAL SALINE FLUSH 10 ML SYR IV SCH ×3 (05:28→20:55)
[2017-11-23 06:47] LABS: CALCIUM, SERUM 9.3 mg/dL (8.5-10.1); CARBON DIOXIDE 29 mmol/L (21-32); CHLORIDE 100 mmol/L (98-107); CREATININE 4.9 mg/dL (0.6-1.3); GLUCOSE 101 mg/dL (74-106); MAGNESIUM 1.9 mg/dL (1.8-2.4); PHOSPHORUS 3.6 mg/dL (2.5-4.9); POTASSIUM 4.4 mmol/L (3.5-5.1); SODIUM SERUM 138 mmol/L (136-145); UREA NITROGEN, BLOOD 29 mg/dL (7-18)
--- NOTE | 2017-11-23 07:00 | NUR ---
CHECK WRITING MACHINE OPERATOR NOTES, PATIENT IN BED AT THIS TIME, BIPAP REMOVED AT THIS TIME, BREATHING EVEN AND UNLABORED, NO SOB/ACUTE DISTRESS NOTED AT THIS TIME, DIDI MIDLINE INTACT AND PATENT, ALL NEEDS PROVIDED, CLEAN AND DRY AT THIS TIME, NO SIGNIFICANT CHANGE IN CONDITION THROUGHOUT THE NIGHT, BED LOCKED AND PROPER POSITION, WILL ENDORSE CONTINUITY OF CARE TO ONCOMING NURSE.
--- NOTE | 2017-11-23 07:05 | NUR ---
PATIENT CARE PROVIDER OPENING NOTES RECEIVED PT FROM NIGHTSHIFT NURSE INI STABLE CONDITION. PT IS A/O X3. NO SOB OR SIGNS OF INFILTRATION NOTED. BREATHING IS EVEN AND UNLABORED. PT IS ON 2L VIA NC AND SATING WELL. SHE IS AFIB IN THE TELE MONITOR WITH A HR OF 86. LEFT UPPER ARM MIDLINE NOTED TO BE PATENT AND INTACT. NO REDNESS OR SIGNS OF INFILTRATION NOTED. BED IN LOW LOCKED POSITION, SIDE RAILS UP X3, CALL LIGHT WITHIN REACH. WILL CONTINUE TO MONITOR
[2017-11-23 07:11] LABS: EOSINOPHILS % (AUTO) 1.4 % (0.0-6.0); HEMATOCRIT 26 % (33-45); HEMOGLOBIN 8.3 g/dL (11.5-14.8); LYMPHOCYTES # (AUTO) 0.8 /CMM (0.8-4.8); LYMPHOCYTES % (AUTO) 23.1 % (20.0-44.0); MEAN CORPUSCULAR HGB CONC 32 g/dl (31.0-36.0); MEAN CORPUSCULAR VOLUME 98 fL (82-100); MONOCYTES # (AUTO) 0.4 /CMM (0.1-1.30); MONOCYTES % (AUTO) 9.6 % (2.0-12.0); NEUTROPHILS # (AUTO) 2.4 /CMM (1.8-8.9); NEUTROPHILS % (AUTO) 65.9 % (43.0-81.0); PLATELET COUNT (AUTO) 177 /CMM (150-450); RDW COEFFICIENT OF VARIATION 16.4 (11.5-15.0); RED BLOOD CELL COUNT(AUTO) 2.65 MIL/uL (4.0-5.2); WHITE BLOOD COUNT (AUTO) 3.7 K/uL (4.3-11.0)
[2017-11-23] MEDS: BLOOD SUGAR DIAGNOSTIC 1 EACH STRIP IN SCH ×4 (07:52→23:25)
[2017-11-23 08:00] VITALS: BP_SYST 102; BP_SYST 105; BP_DIAS 50; BP_DIAS 53; BP_DIAS 60
[2017-11-23] MEDS: FOLIC ACID 1 MG TABLET PO SCH (08:27)
[2017-11-23] MEDS: PANTOPRAZOLE 40 MG VIAL IV SCH (08:27)
[2017-11-23] MEDS: Z GUARD REMEDY 2 OZ OINT TP SCH (08:28)
[2017-11-23] MEDS: APIXABAN 2.5 MG TABLET PO SCH ×2 (08:28→16:37)
[2017-11-23] MEDS: ATORVASTATIN 10 MG TABLET PO SCH (08:28)
[2017-11-23] MEDS: CLOTRIMAZOLE 1% 15 GM TUBE TP SCH ×2 (08:29→16:37)
[2017-11-23] MEDS: DOCUSATE SODIUM 100 MG CAPSULE PO SCH ×2 (08:34→16:37)
[2017-11-23 12:00] VITALS: BP_SYST 125; BP_DIAS 51; BP_DIAS 57
[2017-11-23 16:00] VITALS: BP 105/52
[2017-11-23] MEDS ORDERED: BISACODYL SUPP (10 MG) 10 MG/SUPP.RECT SUPP.RECT RC PRN (17:00)
--- NOTE | 2017-11-23 18:25 | NUR ---
MINER HELPER CLOSING NOTES PT REMAINS STABLE. ALL NEEDS ANTICIPATED FOR AND MET THROUGHOUT SHIFT. ALL DUE MEDS GIVEN. WOUND AND SKIN CARE RENDERED ORDERED. PT WAS REPOSITIONED AND TURNED Q2HRS PER PROTOCOL. MIDLINE REMAINS PATENT AND INTACT. WILL ENDORSE TO NIGHTSHIFT NURSE FOR BURT
--- NOTE | 2017-11-23 19:30 | NUR ---
HAND STRIPPER NOTES, PATIENT IN BED AT THIS TIME, AWAKE ALERT AND ORIENTED, ABLE TO COMMUNICATE NEEDS AND CONCERNS, BREATHING EVEN AND UNLABORED, NO SOB/ACUTE DISTRESS NOTED AT THIS TIME, DIDI MIDLINE INTACT AND PATENT, ALL NEEDS PROVIDED, CLEAN AND DRY AT THIS TIME, BED LOCKED AND PROPER POSITION, CALL LIGHT W/W REACH, WILL CONTINUE TO MONITOR CLOSELY.
[2017-11-23 20:00] VITALS: BP 110/55
[2017-11-24] VITALS (7 sets, daily range): BP systolic 89–118; BP diastolic 30–59
[2017-11-24] MEDS: IPRATROPIUM NEB FS 0.5 MG/2.5 ML AMPUL.NEB NEB SCH ×7 (00:08→22:52)
[2017-11-24] MEDS: ALBUTEROL FS 2.5 MG/3 ML VIAL.NEB NEB SCH ×7 (00:08→22:52)
[2017-11-24] MEDS: NORMAL SALINE FLUSH 10 ML SYR IV SCH ×2 (05:25→13:15)
[2017-11-24 06:29] LABS: EOSINOPHILS % (AUTO) 2.1 % (0.0-6.0); HEMATOCRIT 27 % (33-45); HEMOGLOBIN 8.5 g/dL (11.5-14.8); LYMPHOCYTES % (AUTO) 26.5 % (20.0-44.0); MEAN CORPUSCULAR HGB CONC 32 g/dl (31.0-36.0); MEAN CORPUSCULAR VOLUME 97 fL (82-100); MONOCYTES # (AUTO) 0.4 /CMM (0.1-1.30); MONOCYTES % (AUTO) 9.3 % (2.0-12.0); NEUTROPHILS # (AUTO) 2.4 /CMM (1.8-8.9); NEUTROPHILS % (AUTO) 62.1 % (43.0-81.0); PLATELET COUNT (AUTO) 179 /CMM (150-450); RDW COEFFICIENT OF VARIATION 15.9 (11.5-15.0); RED BLOOD CELL COUNT(AUTO) 2.78 MIL/uL (4.0-5.2); WHITE BLOOD COUNT (AUTO) 3.8 K/uL (4.3-11.0)
--- NOTE | 2017-11-24 06:40 | NUR ---
SITE OPERATIONS MANAGER NOTES, PATIENT IN BED AT THIS TIME, IN BIPAP AT THIS TIME, NO SOB/ACUTE DISTRESS NOTED AT THIS TIME, DIDI MIDLINE INTACT AND PATENT, ALL NEEDS PROVIDED, CLEAN AND DRY AT THIS TIME, BED LOCKED AND PROPER POSITION, CALL LIGHT W/W REACH, REMAINS STABLE, WILL ENDORSE CONTINUITY OF CARE TO ONCOMING NURSE.
[2017-11-24 06:41] LABS: ALANINE AMINOTRANSFERASE 13 U/L (12-78); ALBUMIN 3.4 g/dL (3.4-5.0); ALKALINE PHOSPHATASE 62 U/L (46-116); ASPARTATE AMINOTRANSFERASE 12 U/L (15-37); BILIRUBIN,TOTAL 0.4 mg/dL (0.2-1.0); CALCIUM, SERUM 9.5 mg/dL (8.5-10.1); CARBON DIOXIDE 31 mmol/L (21-32); CHLORIDE 99 mmol/L (98-107); CREATININE 6.1 mg/dL (0.6-1.3); GLUCOSE 93 mg/dL (74-106); MAGNESIUM 2.2 mg/dL (1.8-2.4); PHOSPHORUS 4.6 mg/dL (2.5-4.9); POTASSIUM 5.6 mmol/L (3.5-5.1); SODIUM SERUM 135 mmol/L (136-145); TOTAL PROTEIN, SERUM 7.8 g/dL (6.4-8.2); UREA NITROGEN, BLOOD 44 mg/dL (7-18)
[2017-11-24] MEDS: BLOOD SUGAR DIAGNOSTIC 1 EACH STRIP IN SCH ×4 (07:54→21:57)
--- NOTE | 2017-11-24 08:10 | NUR ---
BRICK SHADER NOTE: RECEIVED REPORT FROM JAMEY VENTURA RN FOR CONTINUITY OF CARE. PATIENT IN BED, AWAKE, ALERT AND ABLE TO MAKE HER NEEDS KNOWN. ON STAFF PSYCHIATRIST, CONTROLLED A. FIB HR= 89. HOB ELEVATED. (L) UA MIDLINE NOTED PATENT AND INTACT. BED ALARM AND LOCKED AT ALL TIMES. CALL LIGHT WITHIN REACH. NEEDS ANTICIPATED.
--- NOTE | 2017-11-24 08:28 | NUR ---
REPORT GIVEN TO JABARI LLANOS FOR BURT.
[2017-11-24] MEDS: FOLIC ACID 1 MG TABLET PO SCH (09:13)
[2017-11-24] MEDS: APIXABAN 2.5 MG TABLET PO SCH ×2 (09:13→17:10)
[2017-11-24] MEDS: PANTOPRAZOLE 40 MG VIAL IV SCH (09:14)
[2017-11-24] MEDS: DOCUSATE SODIUM 100 MG CAPSULE PO SCH ×2 (09:14→17:10)
[2017-11-24] MEDS: ATORVASTATIN 10 MG TABLET PO SCH (09:14)
[2017-11-24] MEDS: Z GUARD REMEDY 2 OZ OINT TP SCH ×2 (09:15→22:18)
[2017-11-24] MEDS: CLOTRIMAZOLE 1% 15 GM TUBE TP SCH ×3 (09:15→22:19)
--- NOTE | 2017-11-24 09:28 | NUR ---
ELECTRIC LINEMAN NOTE: RECHECKED THE PATIENT'S BP 123/60, HR= 84. DR. MCWILLIAMS WAS MADE AWARE. PATIENT IS CURRENTLY RECEIVING HEMODIALYSIS TODAY. AM CARE WAS DONE AND WOUND TREATMENT.
--- NOTE | 2017-11-24 12:00 | NUR ---
MS RN NOTE: PATIENT POST HEMODIALYSIS OUTPUT WAS 3L PER HD NURSE. REMAINED ON STABLE CONDITION. DENIED ANY DIZZINESS OR ANY WEAKNESS. NO SHORTNESS OF BREATH NOTED.
[2017-11-24] MEDS: INSULIN REGULAR, HUMAN 100 UNIT/ML 3 ML VIAL SQ PRN (17:37)
--- NOTE | 2017-11-24 19:45 | NUR ---
MS RN NOTE: PATIENT IN BED, AWAKE, ALERT AND ABLE TO MAKE HER NEEDS KNOWN. ON IT ANALYST, CONTROLLED A. FIB HR= 86. HOB ELEVATED. (L) UA MIDLINE NOTED PATENT AND INTACT. BED ALARM AND LOCKED AT ALL TIMES. CALL LIGHT WITHIN REACH. REPORT GIVEN TO PM SHIFT NURSE FOR CONTINUITY OF CARE.
--- NOTE | 2017-11-24 20:00 | NUR ---
JAMEY RN NOTES RECEIVED BEDSIDE REPORT FROM AM NURSE. PT IS IN BED, A/O X4, WITH STABLE V/S, PERFUSION 100% ON NC 2L O2. DIDI MIDLINE IV LINE NOTED, PATIENT, FLASHED WITH NS. PT IS REPOSITIONED, ALL SAFETY MEASURES ARE IMPLEMENTED, BED IN LOWEST, LOCKED POSITION, CALL LIGHT WITHIN REACH. WILL CONT. TO MONITOR.
--- NOTE | 2017-11-24 23:15 | NUR ---
RT NOTE: RCVD PT ON 2L NC, PLACED PT ON BIPAP 15/5,RATE 14, 28% AT NIGHT PER MD'S ORDER. PT TOLERATING THE BIPAP. Q4 BREATHING TX GIVEN , NO ADVERSE REACTION NOTED. NO RESPIRATORY DISTRESS NOTED AT THIS TIME. WILL CONTINUE TO MONITOR THE PT.
[2017-11-25] MEDS: IPRATROPIUM NEB FS 0.5 MG/2.5 ML AMPUL.NEB NEB SCH ×4 (03:19→14:06)
[2017-11-25] MEDS: ALBUTEROL FS 2.5 MG/3 ML VIAL.NEB NEB SCH ×4 (03:19→14:06)
[2017-11-25 05:00] VITALS: BP 111/65
--- NOTE | 2017-11-25 06:15 | NUR ---
PT TAKEN OFF BIPAP. PT PLACED BACK ON 2L NC.
[2017-11-25] MEDS ORDERED: PANTOPRAZOLE 40 MG TABLET.DR PO SCH (07:30)
--- NOTE | 2017-11-25 07:50 | NUR ---
RN NOTE RECEIVED PATIENT IN BED AWAKE WATCHING T.V. ALERT AND ORIENTED X3 SHE IS ABLE TO MAKE THINGS KNOWN AND VERBALIZE NEEDS. BREATHING EVEN AND UNLABORED WITH NO DISTRESS NOTED. DENIES ANY PAIN AT THIS TIME. LEFT UA MIDLINE IV SITE INTACT AND PATENT. ALL SAFETY MEASURES DONE, BED IN LOW AND LOCKED POSITION. PLACED CALL LIGHT WITHIN REACH. WILL CONTINUE TO MONITOR.
[2017-11-25] MEDS: BLOOD SUGAR DIAGNOSTIC 1 EACH STRIP IN SCH ×2 (07:59→11:56)
[2017-11-25 08:00] VITALS: BP 115/53
[2017-11-25] MEDS: DOCUSATE SODIUM 100 MG CAPSULE PO SCH ×2 (08:24→16:37)
[2017-11-25] MEDS: FOLIC ACID 1 MG TABLET PO SCH (08:24)
[2017-11-25] MEDS: APIXABAN 2.5 MG TABLET PO SCH ×2 (08:24→16:37)
[2017-11-25] MEDS: INSULIN REGULAR, HUMAN 100 UNIT/ML 3 ML VIAL SQ PRN (11:58)
[2017-11-25] MEDS ORDERED: DOCU-141 PO (12:02)
[2017-11-25 14:00] VITALS: BP 122/74
[2017-11-25] MEDS: CLOTRIMAZOLE 1% 15 GM TUBE TP SCH (16:37)
--- NOTE | 2017-11-25 17:45 | NUR ---
RN NOTE 87 YEAR OLD FEMALE DISCHARGED TO [facility] IN STABLE CONDITION. COMPLIANT WITH MEDICATIONS, COOPERATIVE WITH TREATMENT PLANS. TREATMENT PLANS AND MEDICAL PLANS DEFERRED FOR CONTINUAL MONITORING. EDUCATED PATIENT ABOUT AFTER CARE PLAN AND COPIES PROVIDED. RETURNED PERSONAL BELONGINGS TO PATIENT. MEDICATIONS RECONCILED. REPORT GIVEN TO JOSÉ MIGUEL AT [facility] FOR CONTINUITY OF CARE. PATIENT UNABLE TO SIGN DISCHARGE PAPERWORK BUT WAS ABLE TO GET SECONDARY SIGNATURE BY RN. DAUGHTER RICHARD WAS NOTIFIED ABOUT PATIENTS DISCHARGE. REMOVED LEFT UPPER MIDLINE WITH CATHETER INTACT. WOUND PICTURES TAKEN AND DOCUMENTED IN CHART. PATIENT LEFT THE UNIT AT 1745 VIA AMBULANCE.
== END 2017-11-25 17:43 | DRG 177 ==
LOC: ER 14:31 → ICU 18:34 → TELE-TD 11-11 05:35 → TELE1 11-11 10:56 → ICU 11-12 17:10 → TELE1 11-14 11:48 → TELE-TD 11-14 12:06 → TELE1 11-16 09:58 → ICU 11-16 18:45 → TELE-TD 11-22 18:07 → TELE1 11-23 00:56 → TELE-TD 11-23 02:01 → TELE1 11-23 02:07 → MEDSG1 11-24 09:35
PROVIDERS: ADMIT Internal Medicine; ATTEND Internal Medicine
PROC: 5A0935Z Assistance with Respiratory Ventilation, Less than 24 Consecutive Hours (ICD-10-PCS; principal; 2017-11-09)
PROC: 05H633Z Insertion of Infusion Device into Left Subclavian Vein, Percutaneous Approach (ICD-10-PCS; 2017-11-10)
PROC: B547ZZA Ultrasonography of Left Subclavian Vein, Guidance (ICD-10-PCS; 2017-11-10)
PROC: 5A1D70Z Performance of Urinary Filtration, Intermittent, Less than 6 Hours Per Day (ICD-10-PCS; 2017-11-11)
PROC: 5A0935Z Assistance with Respiratory Ventilation, Less than 24 Consecutive Hours (ICD-10-PCS; 2017-11-11)
PROC: 5A0935Z Assistance with Respiratory Ventilation, Less than 24 Consecutive Hours (ICD-10-PCS; 2017-11-12)
PROC: 5A1D70Z Performance of Urinary Filtration, Intermittent, Less than 6 Hours Per Day (ICD-10-PCS; 2017-11-13)
PROC: 5A0935Z Assistance with Respiratory Ventilation, Less than 24 Consecutive Hours (ICD-10-PCS; 2017-11-13)
PROC: 5A0935Z Assistance with Respiratory Ventilation, Less than 24 Consecutive Hours (ICD-10-PCS; 2017-11-14)
PROC: 5A1D70Z Performance of Urinary Filtration, Intermittent, Less than 6 Hours Per Day (ICD-10-PCS; 2017-11-15)
PROC: 5A1D70Z Performance of Urinary Filtration, Intermittent, Less than 6 Hours Per Day (ICD-10-PCS; 2017-11-16)
PROC: 5A0935Z Assistance with Respiratory Ventilation, Less than 24 Consecutive Hours (ICD-10-PCS; 2017-11-16)
PROC: 5A1D70Z Performance of Urinary Filtration, Intermittent, Less than 6 Hours Per Day (ICD-10-PCS; 2017-11-17)
PROC: 5A0935Z Assistance with Respiratory Ventilation, Less than 24 Consecutive Hours (ICD-10-PCS; 2017-11-17)
PROC: 5A1D70Z Performance of Urinary Filtration, Intermittent, Less than 6 Hours Per Day (ICD-10-PCS; 2017-11-18)
PROC: 5A1D70Z Performance of Urinary Filtration, Intermittent, Less than 6 Hours Per Day (ICD-10-PCS; 2017-11-19)
PROC: 5A0935Z Assistance with Respiratory Ventilation, Less than 24 Consecutive Hours (ICD-10-PCS; 2017-11-19)
PROC: 5A1D70Z Performance of Urinary Filtration, Intermittent, Less than 6 Hours Per Day (ICD-10-PCS; 2017-11-20)
PROC: 5A0935Z Assistance with Respiratory Ventilation, Less than 24 Consecutive Hours (ICD-10-PCS; 2017-11-20)
PROC: 5A0935Z Assistance with Respiratory Ventilation, Less than 24 Consecutive Hours (ICD-10-PCS; 2017-11-21)
PROC: 5A1D70Z Performance of Urinary Filtration, Intermittent, Less than 6 Hours Per Day (ICD-10-PCS; 2017-11-22)
PROC: 5A0935Z Assistance with Respiratory Ventilation, Less than 24 Consecutive Hours (ICD-10-PCS; 2017-11-23)
PROC: 5A1D70Z Performance of Urinary Filtration, Intermittent, Less than 6 Hours Per Day (ICD-10-PCS; 2017-11-24)
PROC: 5A0935Z Assistance with Respiratory Ventilation, Less than 24 Consecutive Hours (ICD-10-PCS; 2017-11-24)
DX: J15.6 Pneumonia due to other Gram-negative bacteria (principal); J96.01 Acute respiratory failure with hypoxia; G93.41 Metabolic encephalopathy; I13.2 Hypertensive heart and chronic kidney disease with heart failure and with stage 5 chronic kidney disease, or end stage renal disease; J84.9 Interstitial pulmonary disease, unspecified; E44.0 Moderate protein-calorie malnutrition; J96.02 Acute respiratory failure with hypercapnia; L89.150 Pressure ulcer of sacral region, unstageable; E11.22 Type 2 diabetes mellitus with diabetic chronic kidney disease; E88.09 Other disorders of plasma-protein metabolism, not elsewhere classified; N18.6 End stage renal disease; E66.2 Morbid (severe) obesity with alveolar hypoventilation; N39.0 Urinary tract infection, site not specified; I48.2 Chronic atrial fibrillation; J15.9 Unspecified bacterial pneumonia; D63.8 Anemia in other chronic diseases classified elsewhere; E78.5 Hyperlipidemia, unspecified; I25.10 Atherosclerotic heart disease of native coronary artery without angina pectoris; K21.9 Gastro-esophageal reflux disease without esophagitis; Z79.84 Long term (current) use of oral hypoglycemic drugs; Z99.2 Dependence on renal dialysis; K59.00 Constipation, unspecified; Z79.01 Long term (current) use of anticoagulants; L98.8 Other specified disorders of the skin and subcutaneous tissue; L30.4 Erythema intertrigo; C44.309 Unspecified malignant neoplasm of skin of other parts of face; Z68.34 Body mass index [BMI] 34.0-34.9, adult; T17.990A Other foreign object in respiratory tract, part unspecified in causing asphyxiation, initial encounter; X58.XXXA Exposure to other specified factors, initial encounter; Y93.9 Activity, unspecified; Y92.129 Unspecified place in nursing home as the place of occurrence of the external cause; I50.9 Heart failure, unspecified
CPT/HCPCS: 31720; 36415; 36569; 36600; 70450-TC; 71045-TC; 80048-TC; 80053-TC; 80061-TC; 80076-TC; 80202-TC; 81000-TC; 82140-TC; 82533; 82728-TC; 82803-TC; 82962-TC; 83540-TC; 83605-TC; 83735-TC; 83880; 84100-TC; 84443-TC; 84484-TC; 85025-TC; 85610-TC; 85730-TC; 87040-TC; 87081-TC; 87086-TC; 90935-TC; 92611-TC; 94660; 94760-TC; 94762-TC; 94799-TC; 97110-TC; 97530-TC; 99082-TC; A4216; A4606; A6248; A6403; C9113; J0692; J0885; J1815; J2405; J3370; J3490; J7030; J7040; J7060; P9047; Z7610

== ENCOUNTER 2018-11-01 19:24 | Inpatient (IN) | payer MEDICARE, MEDICAID ==
[~2018-11-01] VITALS: Ht 165.1 cm; Wt 86.2 kg
[~2018-11-01 19:24] MED LIST changes: -ATOR10TA PO; +CALC667C6 PO; +DOCU-141 PO; +FURO40TA5 PO; +INSU100V3 SQ; -ROSU10TA PO; +ROSU10TA2 PO
--- NOTE | 2018-11-01 19:29 | NUR ---
PT C/C SOB SINCE AM, TINGLING IN BILAT UPPER EXTREMITITIES, DIALYSIS MWF. PT TRANSFERRED TO BED AND LYING IN COMFORTABLE CONDITION. PT PLACED ON MONITOR WITH VS WNL. AWAITING MD OATES.
[2018-11-01 19:48] LABS: BASOPHILS # (AUTO) 0.1 /CMM (0.0-0.2); BASOPHILS % (AUTO) 1.4 % (0.0-2.0); EOSINOPHILS % (AUTO) 2.6 % (0.0-6.0); HEMATOCRIT 35 % (33-45); HEMOGLOBIN 11.2 g/dL (11.5-14.8); LYMPHOCYTES % (AUTO) 21.1 % (20.0-44.0); MEAN CORPUSCULAR HGB CONC 33 g/dl (31.0-36.0); MEAN CORPUSCULAR VOLUME 102 fL (82-100); MONOCYTES # (AUTO) 0.5 /CMM (0.1-1.30); MONOCYTES % (AUTO) 9.5 % (2.0-12.0); NEUTROPHILS # (AUTO) 3.2 /CMM (1.8-8.9); NEUTROPHILS % (AUTO) 65.4 % (43.0-81.0); PLATELET COUNT (AUTO) 174 /CMM (150-450); RED BLOOD CELL COUNT(AUTO) 3.39 MIL/uL (4.0-5.2)
[2018-11-01 19:56] LABS: CALCIUM, SERUM 8.1 mg/dL (8.5-10.1); CARBON DIOXIDE 35 mmol/L (21-32); CHLORIDE 95 mmol/L (98-107); CREATININE 5.4 mg/dL (0.6-1.3); GLUCOSE 136 mg/dL (74-106); POTASSIUM 5.5 mmol/L (3.5-5.1); SODIUM SERUM 136 mmol/L (136-145); UREA NITROGEN, BLOOD 45 mg/dL (7-18)
[2018-11-01 20:08] LABS: ALBUMIN 3.8 g/dL (3.4-5.0); ALKALINE PHOSPHATASE 214 U/L (46-116); ASPARTATE AMINOTRANSFERASE 12 U/L (15-37); B-TYPE NATRIURETIC PEPTIDE 18644 PG/ML (0-125); BILIRUBIN,DIRECT 0.1 mg/dL (0.0-0.2); BILIRUBIN,TOTAL 0.3 mg/dL (0.2-1.0); TOTAL PROTEIN, SERUM 7.9 g/dL (6.4-8.2)
[2018-11-01 20:16] LABS: ALANINE AMINOTRANSFERASE < 6 U/L (12-78)
--- NOTE | 2018-11-01 21:25 | NUR ---
CEDRICK PAGED ANTHONY PEÑA DNP
--- NOTE | 2018-11-01 21:46 | NUR ---
304-2 DX CHF ACCEPTING CASEY DNP
--- NOTE | 2018-11-01 22:03 | NUR ---
gave report to [facility] for continuity of care.
[2018-11-01] MEDS ORDERED: ERGOCALCIFEROL (VITAMIN D 2) 50,000 UNIT CAPSULE PO SCH (23:00)
[2018-11-01] MEDS ORDERED: Z GUARD REMEDY 2 OZ OINT TP PRN (23:00)
[2018-11-01] MEDS ORDERED: ACETYLCYSTEINE 10% SOLN 400 MG/4 ML VIAL NEB PRN (23:00)
[2018-11-01] MEDS ORDERED: ACETAMINOPHEN 325 MG TABLET PO PRN (23:00)
[2018-11-01] MEDS ORDERED: SODIUM POLYSTYRENE SULFONATE 15 G/60 ML BOTTLE PO ONE (23:00)
[2018-11-01] MEDS ORDERED: ONDANSETRON HCL/PF 4 MG/2 ML VIAL IVP PRN (23:00)
--- NOTE | 2018-11-01 23:00 | NUR ---
transported pt to 3w in no acute distress in bed. pt transported according to acls protocol and tolerated well. endorsed care to [place] [facility] for continuity of care.
[2018-11-01 23:25] VITALS: BP 115/63
[2018-11-01] MEDS ORDERED: INSULIN REGULAR, HUMAN 100 UNIT/ML 3 ML VIAL SQ PRN (23:30)
[2018-11-01] MEDS ORDERED: BUMETANIDE INJ 6 MG in IV NS 0.9% 36 ML IV ONE (23:30)
[2018-11-01] MEDS ORDERED: DEXTROSE 50%-WATER 50 ML DISP.SYRIN IV PRN (23:30)
[2018-11-02] VITALS (7 sets, daily range): BP systolic 94–128; BP diastolic 44–76
--- NOTE | 2018-11-02 | NUR ---
ONCOLOGY PHARMACIST NOTES PATIENT ARRIVED ON THE UNIT AT 2250 VIA GURNEY. REPORT WAS TAKEN FROM ROMI TEMPLE. MED RECON DONE IN ER. MRSA SWAB DONE IN ER. ORDERS RECEIVED AND CARRIED OUT. PATIENT IS IN NO RESPIRATORY DISTRESS. PATIENT DENIES SHORTNESS OF BREATH AT THIS TIME. PATIENT DENIES PAIN AT THIS TIME. SAFETY PRECAUTIONS IMPLEMENTED. CALL LIGHT WITHIN REACH. WILL CONTINUE TO MONITOR PATIENT THROUGHOUT THE SHIFT.
[2018-11-02] MEDS ORDERED: BUMETANIDE INJ 0.25 MG/ML VIAL ONE (00:11)
[2018-11-02] MEDS ORDERED: SODIUM POLYSTYRENE SULFONATE 15 G/60 ML BOTTLE ONE (01:00)
[2018-11-02 06:30] LABS: BASOPHILS # (AUTO) 0.1 /CMM (0.0-0.2); BASOPHILS % (AUTO) 1.3 % (0.0-2.0); HEMATOCRIT 31 % (33-45); HEMOGLOBIN 10.3 g/dL (11.5-14.8); LYMPHOCYTES # (AUTO) 0.8 /CMM (0.8-4.8); LYMPHOCYTES % (AUTO) 17.3 % (20.0-44.0); MEAN CORPUSCULAR HGB CONC 33 g/dl (31.0-36.0); MEAN CORPUSCULAR VOLUME 101 fL (82-100); MONOCYTES # (AUTO) 0.4 /CMM (0.1-1.30); MONOCYTES % (AUTO) 9.6 % (2.0-12.0); NEUTROPHILS # (AUTO) 3.1 /CMM (1.8-8.9); NEUTROPHILS % (AUTO) 68.8 % (43.0-81.0); PLATELET COUNT (AUTO) 151 /CMM (150-450); RED BLOOD CELL COUNT(AUTO) 3.12 MIL/uL (4.0-5.2); WHITE BLOOD COUNT (AUTO) 4.4 K/uL (4.3-11.0)
--- NOTE | 2018-11-02 06:36 | NUR ---
RN CLOSING NOTES PATIENT IS AWAKE, RESTING COMFORTABLY IN BED. PATIENT HAS NO SIGNS OF RESPIRATORY DISTRESS. NO SIGNS OF SHORTNESS OF BREATH. PATIENT DENIES PAIN AT THIS TIME. IV SITE IS PATENT AND INTACT. ALL NEEDS ATTENDED TO. SAFETY PRECAUTIONS IMPLEMENTED. CALL LIGHT WITHIN REACH. WILL ENDORSE TO ONCOMING AM RN.
[2018-11-02 06:49] LABS: ALANINE AMINOTRANSFERASE 6 U/L (12-78); ALBUMIN 3.3 g/dL (3.4-5.0); ALKALINE PHOSPHATASE 189 U/L (46-116); ASPARTATE AMINOTRANSFERASE 8 U/L (15-37); BILIRUBIN,TOTAL 0.4 mg/dL (0.2-1.0); CALCIUM, SERUM 8.1 mg/dL (8.5-10.1); CARBON DIOXIDE 32 mmol/L (21-32); CHLORIDE 100 mmol/L (98-107); GLUCOSE 117 mg/dL (74-106); MAGNESIUM 2.5 mg/dL (1.8-2.4); PHOSPHORUS 4.4 mg/dL (2.5-4.9); POTASSIUM 4.2 mmol/L (3.5-5.1); SODIUM SERUM 142 mmol/L (136-145); TOTAL PROTEIN, SERUM 6.9 g/dL (6.4-8.2); UREA NITROGEN, BLOOD 48 mg/dL (7-18)
[2018-11-02 07:15] LABS: CHOLESTEROL 157 mg/dL (<200); HDL CHOLESTEROL 41 mg/dL (40-60); LDL 91 mg/dL (0-99); THYROID STIMULATING HORMONE 1.594 uIU/mL (0.358-3.74); TRIGLYCERIDES 128 mg/dL (30-150)
--- NOTE | 2018-11-02 08:00 | NUR ---
DIRECTOR GLOBAL STRATEGIC PUBLISHER SALES AM NOTES RECEIVED PATIENT ALERT AND AWAKE,VERBALLY RESPONSIVE AND HAVING HEMODIALYSIS AT THIS TIME. PATIENT DENIES SHORTNESS OF BREATH AT THIS TIME. SAFETY PRECAUTIONS IMPLEMENTED. CALL LIGHT WITHIN REACH. WILL CONTINUE TO MONITOR PATIENT.
[2018-11-02] MEDS: BLOOD SUGAR DIAGNOSTIC 1 EACH STRIP IN SCH ×4 (08:48→21:26)
[2018-11-02] MEDS: CALCIUM ACETATE 667 MG TABLET PO SCH ×3 (08:59→17:05)
[2018-11-02] MEDS: FOLIC ACID 1 MG TABLET PO SCH (09:00)
[2018-11-02] MEDS: FUROSEMIDE 40 MG TABLET PO SCH (09:00)
[2018-11-02] MEDS: ASCORBIC ACID 500 MG TABLET PO SCH (09:00)
[2018-11-02] MEDS: DOCUSATE SODIUM 100 MG CAPSULE PO SCH ×2 (09:00→16:53)
[2018-11-02] MEDS: REPAGLINIDE 2 MG TABLET PO SCH ×3 (09:01→16:52)
[2018-11-02] MEDS: LINAGLIPTIN 5 MG TABLET PO SCH (09:01)
[2018-11-02] MEDS: APIXABAN 2.5 MG TABLET PO SCH ×2 (09:13→16:51)
--- NOTE | 2018-11-02 09:31 | NUR ---
PT REFUSED LASIX AND COLACE 100 MG PO INSPITE OF EXPLAINING ITS RISKS AND BENEFITS.OPENED THE LASIX FOIL WHEN PT VERBALIZED REFUSING LASIX. RETURNED COLACE 100 MG PO IN THE 0MNICELL. THREW THE OPENED LASIX IN THE MEDICINE DISPENSER.
--- NOTE | 2018-11-02 12:45 | NUR ---
PT REFUSED PRANDIN AND INSULIN 2 UNITS SAYING HER BLOOD SUGAR IS FINE AND DOESN'T NEED INSULIN.PT TEACHING GIVEN THE RISKS AND BENEFITS OF INSULIN AND PRANDIN AND THEIR SIDE EFFECTS WELL.PT VERBALIZED UNDERSTANDING OF INSTRUCTIONS GIVEN.
--- NOTE | 2018-11-02 18:54 | NUR ---
COMFORTABLY TUCKED IN BED.ABLE TO AMBULATE WITH MINIMUM TO MODERATE ASSIST.PT DENIES NEEDING MAX ASSIST ASSISTANCE.DENIES ANY DISTRESS.CALL LIGHT PLACED WITHIN REACH.
--- NOTE | 2018-11-02 19:20 | NUR ---
MS RN OPENING NOTES Received patient A/O x 4, awake on bed. On O2 inhalation via NC @ 2LPM, saturating well, no SOB/respiratory distress noted. Patient denies any discomfort at this time. Kept on bed clean, dry and comfortable. Call light within easy reach. Kept bed low and locked. Will continue to monitor accordingly.
[2018-11-02] MEDS: ATORVASTATIN 40 MG TABLET PO SCH (21:28)
[2018-11-03] MEDS: BLOOD SUGAR DIAGNOSTIC 1 EACH STRIP IN SCH ×4 (06:34→22:28)
--- NOTE | 2018-11-03 06:39 | NUR ---
MS RN CLOSING NOTES Patient asleep at this time. On O2 inhalation via NC @ 2LPM, saturating well, no SOB/dyspnea noted. With patent peripheral IV line LAC #20 SL. All nursing needs attended. Due meds given as ordered. Kept clean, dry and comfortable. Kept bed low and locked with siderails x2 up. Call light within easy reach. Endorsed to the next shift.
[2018-11-03 06:58] LABS: BASOPHILS % (AUTO) 1.1 % (0.0-2.0); HEMATOCRIT 32 % (33-45); HEMOGLOBIN 10.4 g/dL (11.5-14.8); LYMPHOCYTES # (AUTO) 0.7 /CMM (0.8-4.8); LYMPHOCYTES % (AUTO) 16.4 % (20.0-44.0); MEAN CORPUSCULAR HGB CONC 32 g/dl (31.0-36.0); MEAN CORPUSCULAR VOLUME 102 fL (82-100); MONOCYTES # (AUTO) 0.5 /CMM (0.1-1.30); MONOCYTES % (AUTO) 11.3 % (2.0-12.0); NEUTROPHILS # (AUTO) 3.1 /CMM (1.8-8.9); NEUTROPHILS % (AUTO) 68.2 % (43.0-81.0); PLATELET COUNT (AUTO) 141 /CMM (150-450); RED BLOOD CELL COUNT(AUTO) 3.16 MIL/uL (4.0-5.2); WHITE BLOOD COUNT (AUTO) 4.5 K/uL (4.3-11.0)
[2018-11-03 07:09] LABS: CALCIUM, SERUM 7.9 mg/dL (8.5-10.1); CARBON DIOXIDE 32 mmol/L (21-32); CHLORIDE 99 mmol/L (98-107); CREATININE 5.3 mg/dL (0.6-1.3); GLUCOSE 113 mg/dL (74-106); MAGNESIUM 2.3 mg/dL (1.8-2.4); PHOSPHORUS 4.6 mg/dL (2.5-4.9); POTASSIUM 3.9 mmol/L (3.5-5.1); SODIUM SERUM 140 mmol/L (136-145); UREA NITROGEN, BLOOD 40 mg/dL (7-18)
[2018-11-03 08:00] VITALS: BP 133/61
--- NOTE | 2018-11-03 08:00 | NUR ---
PSYCHOLOGIST PERSONNEL AM NOTES RECEIVED PATIENT ALERT AND AWAKE,VERBALLY RESPONSIVE-SITTING IN THE CHAIR BESIDE HER BED.PATIENT DENIES SHORTNESS OF BREATH EVEN IF HER O2 AT IS 88%-REINFORCED PT TEACHING ON THE IMPORTANCE OF O2 USE. REFUSED TO TAKE LASIX,PRANDIN INSPITE OF EXPLAINING ITS RISKS AND BENEFITS.SAFETY PRECAUTIONS IMPLEMENTED. CALL LIGHT WITHIN REACH. WILL CONTINUE TO MONITOR PATIENT.
[2018-11-03 08:40] VITALS: BP_SYST 114; BP_SYST 84; BP_SYST 90; BP_DIAS 42; BP_DIAS 45; BP_DIAS 50
--- NOTE | 2018-11-03 08:40 | NUR ---
PT C/O FEELING DIZZY,PROVIDED O2 AT 2L/MIN VIA NC AND CHECKED HER ORTHOSTAT BP AND INFORMED DR WATSON WITH ORDER FOR MIDODRINE. WILL MONITOR.PT'S LT AC HEPLOCK IS INFILTRATED AND WILL BE REPLACED WITH A NEW ONE.
[2018-11-03] MEDS: REPAGLINIDE 2 MG TABLET PO SCH ×4 (09:00→17:00)
[2018-11-03] MEDS: DOCUSATE SODIUM 100 MG CAPSULE PO SCH ×2 (09:00→17:00)
[2018-11-03] MEDS: FUROSEMIDE 40 MG TABLET PO SCH (09:00)
[2018-11-03] MEDS: ASCORBIC ACID 500 MG TABLET PO SCH (09:11)
[2018-11-03] MEDS: FOLIC ACID 1 MG TABLET PO SCH (09:11)
[2018-11-03] MEDS: CALCIUM ACETATE 667 MG TABLET PO SCH ×3 (09:11→17:58)
[2018-11-03] MEDS: LINAGLIPTIN 5 MG TABLET PO SCH (09:11)
[2018-11-03] MEDS: MIDODRINE HCL (5MG) 5 MG TABLET PO SCH ×3 (09:12→17:00)
[2018-11-03] MEDS: APIXABAN 2.5 MG TABLET PO SCH ×2 (09:22→18:10)
[2018-11-03 12:38] VITALS: BP 100/52
[2018-11-03 15:55] VITALS: BP 125/68
--- NOTE | 2018-11-03 18:25 | NUR ---
per family, patient is currently on service with [facility] [phone] Addendum: 11/04/18 at 0040 by LAUREN GUERRERO RN Amended: Links added.
--- NOTE | 2018-11-03 18:30 | NUR ---
PT RESTING IN BED DENYING ANY DIZZINESS OR DISCOMFORT.CALL LIGHT PLACED WITHIN REACH.
--- NOTE | 2018-11-03 19:00 | NUR ---
MS RN OPENING NOTES Received patient awake on bed. On O2 via NC @ 2LPM, saturating well, no SOB/dyspnea noted. Patient denied any discomfort at this time. Kept bed low and locked, siderails x2 up. call light within easy reach. Will continue to monitor accordingly.
[2018-11-03 20:00] VITALS: BP 105/46
--- NOTE | 2018-11-03 20:30 | NUR ---
MS RN NOTES Patient for BT. Current peripheral IV LFA G#22. Inserted new peripheral IV line R hand G#20. Good blood return noted. Wrapped with kerlix to prevent patient from pulling off. Patient noted with confusion, observed pulling off IV lines. Addendum: 11/03/18 at 2234 by MEL STEINBERG RN WRONG PATIENT
[2018-11-03] MEDS: ATORVASTATIN 40 MG TABLET PO SCH (22:00)
--- NOTE | 2018-11-03 22:14 | NUR ---
MS RN NOTES Checked BS as ordered - 170. Patient claimed she just ate snacks. Offered insulin - patient refused. Explained the risk and benefits of taking insulin. Patient verbalized understanding but insist to refuse meds. Will continue to monitor accordingly.
--- NOTE | 2018-11-04 06:35 | NUR ---
MS RN CLOSING NOTES Patient noted with good sleep throughout the shift as claimed. AM BS checked 106. No unusualities noted throughout the shift. No new complaints made. On O2 inhalation via NC @ 2LPM. saturating well, no SOB/respiratory distress noted. All nursing needs attended. Kept clean, dry and comfortable. Kept bed low and locked, siderails x2 up. Call light within easy reach. Endorsed to the next shift.
--- NOTE | 2018-11-04 08:00 | NUR ---
RIVERS AND LAKES LEVERMAN AM NOTES RECEIVED PATIENT ALERT AND AWAKE,VERBALLY RESPONSIVE-SITTING IN THE CHAIR BESIDE HER BED.PATIENT DENIES SHORTNESS OF BREATH EVEN IF HER O2 AT IS 88%-REINFORCED PT TEACHING ON THE IMPORTANCE OF O2 USE. REFUSED TO TAKE LASIX,PRANDIN INSPITE OF EXPLAINING ITS RISKS AND BENEFITS.PT IS HAVING HEMODIALYSIS AT THIS TIME.SAFETY PRECAUTIONS IMPLEMENTED. CALL LIGHT WITHIN REACH. WILL CONTINUE TO MONITOR PATIENT.
[2018-11-04 08:11] LABS: BASOPHILS # (AUTO) 0.1 /CMM (0.0-0.2); BASOPHILS % (AUTO) 1.2 % (0.0-2.0); EOSINOPHILS % (AUTO) 3.1 % (0.0-6.0); HEMATOCRIT 32 % (33-45); HEMOGLOBIN 10.5 g/dL (11.5-14.8); LYMPHOCYTES # (AUTO) 0.8 /CMM (0.8-4.8); LYMPHOCYTES % (AUTO) 17.1 % (20.0-44.0); MEAN CORPUSCULAR HGB CONC 33 g/dl (31.0-36.0); MEAN CORPUSCULAR VOLUME 101 fL (82-100); MONOCYTES # (AUTO) 0.5 /CMM (0.1-1.30); MONOCYTES % (AUTO) 10.8 % (2.0-12.0); NEUTROPHILS # (AUTO) 3.3 /CMM (1.8-8.9); NEUTROPHILS % (AUTO) 67.8 % (43.0-81.0); PLATELET COUNT (AUTO) 136 /CMM (150-450); RED BLOOD CELL COUNT(AUTO) 3.15 MIL/uL (4.0-5.2); WHITE BLOOD COUNT (AUTO) 4.8 K/uL (4.3-11.0)
[2018-11-04] MEDS: BLOOD SUGAR DIAGNOSTIC 1 EACH STRIP IN SCH ×3 (08:12→17:05)
[2018-11-04 08:15] VITALS: BP 111/55
[2018-11-04 08:36] LABS: CARBON DIOXIDE 31 mmol/L (21-32); CHLORIDE 98 mmol/L (98-107); CREATININE 6.7 mg/dL (0.6-1.3); GLUCOSE 113 mg/dL (74-106); MAGNESIUM 2.3 mg/dL (1.8-2.4); PHOSPHORUS 5.6 mg/dL (2.5-4.9); SODIUM SERUM 139 mmol/L (136-145); UREA NITROGEN, BLOOD 59 mg/dL (7-18)
[2018-11-04] MEDS: APIXABAN 2.5 MG TABLET PO SCH ×2 (08:53→17:18)
[2018-11-04] MEDS: ASCORBIC ACID 500 MG TABLET PO SCH (08:54)
[2018-11-04] MEDS: CALCIUM ACETATE 667 MG TABLET PO SCH ×3 (08:54→17:16)
[2018-11-04] MEDS: FOLIC ACID 1 MG TABLET PO SCH (08:54)
[2018-11-04] MEDS: MIDODRINE HCL (5MG) 5 MG TABLET PO SCH ×3 (08:54→17:00)
[2018-11-04] MEDS: DOCUSATE SODIUM 100 MG CAPSULE PO SCH ×2 (08:57→17:00)
[2018-11-04] MEDS: REPAGLINIDE 2 MG TABLET PO SCH ×3 (08:58→17:00)
[2018-11-04] MEDS: LINAGLIPTIN 5 MG TABLET PO SCH (08:58)
[2018-11-04] MEDS: FUROSEMIDE 40 MG TABLET PO SCH (08:58)
[2018-11-04] MEDS ORDERED: BISACODYL (5 MG) 5 MG TABLET.DR PO PRN (09:30)
--- NOTE | 2018-11-04 12:50 | NUR ---
HD PROCEDURE DONE TODAY BP 118/55 HR 63 WITH 1.7 LITERS OUTPUT.PT STAYED IN BED VERBALIZING SHE FEELS TIRED AND NEED TO REST.
[2018-11-04] MEDS ORDERED: Midodrine Hcl (5MG) PO (13:30)
[2018-11-04 16:39] VITALS: BP 121/59
[2018-11-04 17:00] VITALS: BP 121/48
--- NOTE | 2018-11-04 19:00 | NUR ---
DISCHARGED PT HOME WITH HOME HEALTH FOR ROMI [place] FOR SAFETY EVAL.DISCHARGED HOME WITH STABLE V/S ACCOMPANIED BY PT'S SON IN LAW AND DAUGHTER,[place]UL[place]I VIA PRIVATE CAR.WITH PORTABLE O2 USE. DENIES ANY SOB OR DISTRESS.WITH RFA HD SHUNT REMAINS INTACT.HD DONE TODAY WITH 1.7 LITERS OUTPUT.
== END 2018-11-04 19:00 | disposition home or self-care (01) | DRG 291 ==
LOC: ER 19:26 → TELE 21:48 → MED 11-02 09:42
PROVIDERS: ADMIT Nurse Practitioner Acute Care; ATTEND Student in an Organized Health Care Education/Training Program
PROC: 5A1D70Z Performance of Urinary Filtration, Intermittent, Less than 6 Hours Per Day (ICD-10-PCS; principal; 2018-11-02)
PROC: 5A1D70Z Performance of Urinary Filtration, Intermittent, Less than 6 Hours Per Day (ICD-10-PCS; 2018-11-02)
DX: I13.2 Hypertensive heart and chronic kidney disease with heart failure and with stage 5 chronic kidney disease, or end stage renal disease (principal); I50.33 Acute on chronic diastolic (congestive) heart failure; N18.6 End stage renal disease; J96.01 Acute respiratory failure with hypoxia; D68.59 Other primary thrombophilia; E11.22 Type 2 diabetes mellitus with diabetic chronic kidney disease; E87.5 Hyperkalemia; E78.5 Hyperlipidemia, unspecified; I48.91 Unspecified atrial fibrillation; K21.9 Gastro-esophageal reflux disease without esophagitis; Z79.4 Long term (current) use of insulin; Z79.899 Other long term (current) drug therapy; Z99.2 Dependence on renal dialysis; Z79.01 Long term (current) use of anticoagulants; D53.9 Nutritional anemia, unspecified
CPT/HCPCS: 36415; 71045-TC; 80048-TC; 80053-TC; 80061-TC; 80076-TC; 82962-TC; 83735-TC; 83880; 84100-TC; 84443-TC; 84484-TC; 85025-TC; 86706; 87081-TC; 87340; 90935-TC; 93307-TC; A4216; G0378; J1815; J3490

== ENCOUNTER 2019-02-23 12:56 | Inpatient (IN) | payer MEDICARE, MEDICAID ==
[~2019-02-23] VITALS: Ht 152.4 cm; Wt 84.4 kg
[~2019-02-23 12:56] MED LIST changes: +Midodrine Hcl (5MG) PO; +REPA2TAB10 PO; -REPA2TAB9 PO
[2019-02-23 13:38] LABS: BASOPHILS % (AUTO) 0.4 % (0.0-2.0); EOSINOPHILS % (AUTO) 2.8 % (0.0-6.0); HEMATOCRIT 35 % (33-45); HEMOGLOBIN 11.2 g/dL (11.5-14.8); LYMPHOCYTES # (AUTO) 0.8 /CMM (0.8-4.8); LYMPHOCYTES % (AUTO) 16.6 % (20.0-44.0); MEAN CORPUSCULAR HGB CONC 32 g/dl (31.0-36.0); MEAN CORPUSCULAR VOLUME 104 fL (82-100); MONOCYTES # (AUTO) 0.5 /CMM (0.1-1.30); MONOCYTES % (AUTO) 10.9 % (2.0-12.0); NEUTROPHILS # (AUTO) 3.1 /CMM (1.8-8.9); NEUTROPHILS % (AUTO) 69.3 % (43.0-81.0); PLATELET COUNT (AUTO) 145 /CMM (150-450); RED BLOOD CELL COUNT(AUTO) 3.34 MIL/uL (4.0-5.2); WHITE BLOOD COUNT (AUTO) 4.5 K/uL (4.3-11.0)
--- NOTE | 2019-02-23 13:46 | NUR ---
BIB Family from home "today was feeling very weak this am and was feeling chills.". PT AAOX3, VSS. RR EVEN & UNLABORED. DENIES CP, SOB, DIZZINESS, N/V/D @ THIS TIME. SEEN & EVAL'D BY DR. BURK. WILL CONT TO MONITOR.
[2019-02-23 13:56] LABS: CHLORIDE 98 mmol/L (98-107); SODIUM SERUM 138 mmol/L (136-145)
[2019-02-23 13:57] LABS: CREATININE 5.6 mg/dL (0.6-1.3); UREA NITROGEN, BLOOD 42 mg/dL (7-18)
[2019-02-23 13:58] LABS: ALKALINE PHOSPHATASE 261 U/L (46-116); ASPARTATE AMINOTRANSFERASE 10 U/L (15-37); BILIRUBIN,DIRECT 0.1 mg/dL (0.0-0.2); BILIRUBIN,TOTAL 0.4 mg/dL (0.2-1.0)
[2019-02-23 13:59] LABS: ALBUMIN 3.4 g/dL (3.4-5.0); TOTAL PROTEIN, SERUM 7.4 g/dL (6.4-8.2)
[2019-02-23 14:00] LABS: CALCIUM, SERUM 8.9 mg/dL (8.5-10.1); CARBON DIOXIDE 37 mmol/L (21-32); GLUCOSE 118 mg/dL (74-106)
[2019-02-23 14:01] LABS: POTASSIUM 6.4 mmol/L (3.5-5.1)
[2019-02-23 14:16] LABS: ALANINE AMINOTRANSFERASE 12 U/L (12-78)
--- NOTE | 2019-02-23 14:26 | NUR ---
RICHARD ERICKTESS (DAUGHTER)
[2019-02-23] MEDS ORDERED: SODIUM POLYSTYRENE SULFONATE 15 G/60 ML BOTTLE PO ONE (15:00)
[2019-02-23] MEDS ORDERED: PROP15DR OP (15:06)
[2019-02-23] MEDS ORDERED: SODIUM POLYSTYRENE SULFONATE 15 G/60 ML BOTTLE ONE ×2 (16:07→16:09)
--- NOTE | 2019-02-23 16:20 | NUR ---
PT ASLEEP, EASILY AWAKEN BY VERBAL STIMULI. DENIES CP, SOB, DIZZINESS, N/V/D @ THIS TIME. MEDICATED ORDERED, PT YVES WELL. WILL CONT TO MONITOR.
--- NOTE | 2019-02-23 16:32 | NUR ---
REPORT GIVEN TO ROMI NEWBY FOR BURT.
[2019-02-23] MEDS ORDERED: MAGNESIUM HYDROXIDE 30 ML UDC PO PRN (17:00)
[2019-02-23] MEDS ORDERED: MAG HYDROX/AL HYDROX/SIMETH 30 ML UDC PO PRN (17:00)
[2019-02-23] MEDS ORDERED: DEXTROSE 50%-WATER 50 ML DISP.SYRIN IV PRN (17:00)
[2019-02-23] MEDS ORDERED: Z GUARD REMEDY 2 OZ OINT TP PRN (17:00)
[2019-02-23] MEDS ORDERED: ZOLPIDEM TARTRATE 5 MG TABLET PO PRN (17:00)
[2019-02-23] MEDS ORDERED: HYDROCODONE/APAP 5/325MG 1 EACH TABLET PO PRN (17:00)
[2019-02-23] MEDS ORDERED: INSULIN REGULAR, HUMAN 100 UNIT/ML 3 ML VIAL SQ PRN (17:00)
[2019-02-23] MEDS ORDERED: ONDANSETRON HCL/PF 4 MG/2 ML VIAL IVP PRN (17:00)
[2019-02-23] MEDS ORDERED: ACETAMINOPHEN 325 MG TABLET PO PRN (17:00)
[2019-02-23] MEDS ORDERED: APIXABAN 2.5 MG TABLET PO SCH (17:00)
--- NOTE | 2019-02-23 17:00 | NUR ---
LATEX RIBBON MACHINE OPERATOR NOTE RECEIVED PATIENT FROM ER.AXOX3.ON O2 VIA NASAL CANULA.NO SOB NO DISTRESS NOTED.BLLE EDEMA.IV IS INTACT AND PATENT.VITAL SIGNS STABLE.SAFETY MEASURES IN PLACE.CALL LIGHT IN REACH.WILL CONTINUE TO MONITOR.
[2019-02-23 17:10] VITALS: BP 122/74
[2019-02-23] MEDS: DOCUSATE SODIUM 100 MG CAPSULE PO SCH (17:33)
[2019-02-23] MEDS: CALCIUM ACETATE 667 MG TABLET PO SCH (17:33)
[2019-02-23] MEDS: BLOOD SUGAR DIAGNOSTIC 1 EACH STRIP IN SCH ×2 (17:33→21:32)
--- NOTE | 2019-02-23 19:39 | NUR ---
UNDERGRADUATE INTERN NOTE ENDORSED TO PMNSTEVEN FOR BURT.
[2019-02-23 20:00] VITALS: BP_SYST 107; BP_SYST 122; BP_DIAS 53; BP_DIAS 74
--- NOTE | 2019-02-23 20:37 | NUR ---
DIGITAL INTERN NOTE PATIENT REPORT GIVEN BEDSIDE. PATIENT IN BED HOB SEMI FOWLERS, PATIENT A/O X 3. PATIENT DENIES PAIN AT THIS TIME. PATIENT HR CONTROLLED AFIB ON THE MONITOR NO S/S OF ACUTE DISTRESS. PATIENT DENIES CHEST PAIN/SOB. PATIENT IV PATENT AND INTACT NO S/S OF INFECTION/INFILTRATION. POC AND GOALS DISCUSSED WITH PATIENT FOR THE DAY. RN WILL CONTINUE TO MONITOR FOR CHANGES.
[2019-02-23] MEDS: HEPARIN SODIUM, PORCINE 5000 UNITS/1 ML VIAL SQ SCH (21:31)
--- NOTE | 2019-02-23 21:32 | NUR ---
REPLANTING MACHINE CREW NOTE PATIENT BLOOD SUGAR 143, PATIENT REFUSES INSULIN AT THIS TIME. PATIENT EDUCATED ON IMPORTANCE OF GOOD BLOOD SUGAR MANAGEMENT, PATIENT STILL REFUSES. STEAM HEATING INSTALLER KEYONNA VEGA.
[2019-02-24] VITALS: BP 114/59
[2019-02-24 04:00] VITALS: BP 112/55
--- NOTE | 2019-02-24 06:47 | NUR ---
TENT WORKER NOTE PATIENT TOLERATED THE NIGHT WELL. PATIENT HAD NO S/S OF ACUTE DISTRES. SLEPT INTERMITTENTLY THROUGHOUT THE NIGHT. PATIENT BREATHING EVEN AND UNLABORED WITH RAC 20 G PATENT AND INTACT. PATIENT HR IN THE 60'S WITH SMALL INCIDENCES OF VPACING AND AFIB. RN WILL ENDORSE POC TO AM FOR BURT.
[2019-02-24 07:13] LABS: BASOPHILS # (AUTO) 0.1 /CMM (0.0-0.2); BASOPHILS % (AUTO) 1.8 % (0.0-2.0); EOSINOPHILS % (AUTO) 3.5 % (0.0-6.0); HEMATOCRIT 34 % (33-45); LYMPHOCYTES # (AUTO) 0.8 /CMM (0.8-4.8); LYMPHOCYTES % (AUTO) 23.3 % (20.0-44.0); MEAN CORPUSCULAR HGB CONC 32 g/dl (31.0-36.0); MEAN CORPUSCULAR VOLUME 103 fL (82-100); MONOCYTES # (AUTO) 0.4 /CMM (0.1-1.30); MONOCYTES % (AUTO) 13.3 % (2.0-12.0); NEUTROPHILS # (AUTO) 1.9 /CMM (1.8-8.9); NEUTROPHILS % (AUTO) 58.1 % (43.0-81.0); PLATELET COUNT (AUTO) 125 /CMM (150-450); WHITE BLOOD COUNT (AUTO) 3.3 K/uL (4.3-11.0)
[2019-02-24 07:26] LABS: ALANINE AMINOTRANSFERASE 12 U/L (12-78); ALBUMIN 3.2 g/dL (3.4-5.0); ALKALINE PHOSPHATASE 241 U/L (46-116); ASPARTATE AMINOTRANSFERASE 5 U/L (15-37); BILIRUBIN,TOTAL 0.4 mg/dL (0.2-1.0); CALCIUM, SERUM 8.5 mg/dL (8.5-10.1); CARBON DIOXIDE 33 mmol/L (21-32); CHLORIDE 99 mmol/L (98-107); CREATININE 6.6 mg/dL (0.6-1.3); GLUCOSE 113 mg/dL (74-106); MAGNESIUM 2.5 mg/dL (1.8-2.4); PHOSPHORUS 4.9 mg/dL (2.5-4.9); POTASSIUM 4.8 mmol/L (3.5-5.1); SODIUM SERUM 140 mmol/L (136-145); TOTAL PROTEIN, SERUM 6.8 g/dL (6.4-8.2); UREA NITROGEN, BLOOD 51 mg/dL (7-18)
[2019-02-24] MEDS ORDERED: PANTOPRAZOLE 40 MG TABLET.DR PO SCH (07:30)
[2019-02-24] MEDS: BLOOD SUGAR DIAGNOSTIC 1 EACH STRIP IN SCH ×2 (07:31→12:37)
[2019-02-24 08:00] VITALS: BP 134/52
[2019-02-24] MEDS: CALCIUM ACETATE 667 MG TABLET PO SCH ×2 (08:00→13:03)
--- NOTE | 2019-02-24 08:00 | NUR ---
telescope operator notes pt gets phosp lo tidwm. will f/u with md re: time.
[2019-02-24] MEDS ORDERED: POLYVINYL ALCOHOL/POVIDONE 0.4 ML DROPERETTE OP SCH (09:00)
[2019-02-24] MEDS ORDERED: FOLIC ACID 1 MG TABLET PO SCH (09:00)
[2019-02-24] MEDS: DOCUSATE SODIUM 100 MG CAPSULE PO SCH (09:12)
[2019-02-24] MEDS: HEPARIN SODIUM, PORCINE 5000 UNITS/1 ML VIAL SQ SCH (09:12)
[2019-02-24 10:49] LABS: IRON, SERUM 54 ug/dl (50-175); TOTAL IRON BINDING CAPACITY 187 ug/dl (250-450)
[2019-02-24 12:00] VITALS: BP 110/48
[2019-02-24] MEDS ORDERED: CLOTRIMAZOLE 1% 15 GM TUBE TP SCH (13:00)
[2019-02-24 13:03] LABS: CHOLESTEROL 186 mg/dL (<200); HDL CHOLESTEROL 52 mg/dL (40-60); LDL 110 mg/dL (0-99); THYROID STIMULATING HORMONE 0.871 uIU/mL (0.358-3.74); TRIGLYCERIDES 98 mg/dL (30-150)
--- NOTE | 2019-02-24 15:30 | NUR ---
telephone order dispatcher notes pt tolerated hd with 2L fluid out. bp wnl. will cont to monitor.
[2019-02-24 16:00] VITALS: BP 124/58
--- NOTE | 2019-02-24 16:19 | NUR ---
cable television line techniciangraphics intern notes pt discharged with candy starch mold printer in wheelchair. radhai, daughter, will drive pt home. iv removed, id band removed. discharge instructions given. pt tolerated hd with stable vs. no wound documentation.no new prescriptions per md. all needs attended.
[2019-02-25] MEDS ORDERED: ERGOCALCIFEROL (VITAMIN D 2) 50,000 UNIT CAPSULE PO SCH (09:00)
== END 2019-02-24 17:23 | disposition home health service (06) | DRG 640 ==
LOC: ER 13:00 → TELE1 15:55
PROVIDERS: ADMIT Nurse Practitioner Acute Care; ATTEND Nurse Practitioner Acute Care
PROC: 5A1D70Z Performance of Urinary Filtration, Intermittent, Less than 6 Hours Per Day (ICD-10-PCS; principal; 2019-02-24)
DX: E87.5 Hyperkalemia (principal); N18.6 End stage renal disease; I50.33 Acute on chronic diastolic (congestive) heart failure; I13.2 Hypertensive heart and chronic kidney disease with heart failure and with stage 5 chronic kidney disease, or end stage renal disease; D68.59 Other primary thrombophilia; D69.6 Thrombocytopenia, unspecified; E66.9 Obesity, unspecified; E83.41 Hypermagnesemia; E78.5 Hyperlipidemia, unspecified; I48.91 Unspecified atrial fibrillation; K21.9 Gastro-esophageal reflux disease without esophagitis; L30.4 Erythema intertrigo; Z95.0 Presence of cardiac pacemaker; Z99.2 Dependence on renal dialysis; R53.1 Weakness; D53.9 Nutritional anemia, unspecified; E11.22 Type 2 diabetes mellitus with diabetic chronic kidney disease; Z68.36 Body mass index [BMI] 36.0-36.9, adult; E87.8 Other disorders of electrolyte and fluid balance, not elsewhere classified; E83.9 Disorder of mineral metabolism, unspecified; Z79.4 Long term (current) use of insulin
CPT/HCPCS: 36415; 70450-TC; 71045-TC; 80048-TC; 80053-TC; 80061-TC; 80076-TC; 82962-TC; 83540-TC; 83605-TC; 83735-TC; 84100-TC; 84443-TC; 84484-TC; 85025-TC; 85730-TC; 87040-TC; 87081-TC; 90935-TC; 97116-TC; 97530-TC; G0378; J1644; J1815